=== PATIENT | male | born 1985 | race Caucasian/White ===

== ENCOUNTER → 2018-08-24 10:08 | Outpatient (CLI) | payer OTHER, SELFPAY ==
--- NOTE | 2018-08-24 10:24 | RAD_ITS ---
STUDY: X-RAY - LUMBAR SPINE REASON FOR EXAM: Male, 32 years old. Low back pain radiating to the left leg TECHNIQUE: 5 view(s) of the lumbar spine were obtained. COMPARISON: None FINDINGS: Normal lumbar lordosis. The patient is tilted towards the left. There is a normal alignment of the vertebrae. Normal vertebral bodies and endplates. There is trace amount of disc space loss at L4-L5 with mild facet arthropathy. There is no demonstrated fracture. There is no demonstrated spondylolysis of the pars interarticulares. The soft tissue structures are unremarkable. RAD/L/S Spine Min 4 Views IMPRESSION: Mild degenerative changes at L4-L5. Electronically Signed: Jitendra Campbell MD at 16:35 EDT , Service support ,
== END ==
PROVIDERS: Family Provider Family Medicine; PCP Family Medicine; Referring Provider Family Medicine; Visit Provider Family Medicine
DX: M54.5 Low back pain (principal)
CPT/HCPCS: 72110

== ENCOUNTER → 2018-10-31 16:37 | Outpatient (CLI) | payer OTHER, SELFPAY ==
[2018-10-31 17:46] LABS: Absolute Lymphocyte Count 1.27 X10^3/ul (0.83-4.51); Absolute Neutrophil Count 3.4 X10^3/uL (2.0-7.7); Basophil# 0.04 X10^3/uL; Basophil% 0.7 % (0-1); Eosinophil# 0.24 X10^3/uL; Hematocrit 44.7 % (40-54); Hemoglobin 15.4 g/dl (13.0-16.5); Lymphocyte # 1.27 X10^3/ul (4.0); Lymphocyte % 21.2 % (19-41); Mean Corp Hgb Conc 34.5 g/gl (32-36); Mean Corpuscular Volume 81.3 fL (80-94); Mean Platelet Vol. 9.3 fl (6.2-12.0); Monocyte# 1.02 X10^3/uL; Neutrophil # 3.41 X10^3/uL (2.7-7.7); Neutrophil % 56.9 % (47-70); Platelet Count 242 K/mm3 (150-450); RBC Distribution Width CV 12.5 % (11.6-14.6); RBC Distribution Width SD 37.2 fl (35.1-43.9)
[2018-10-31 17:57] LABS: POSITIVE COUNT NO; POSITIVE DIFFERENTIAL NO; POSITIVE MORPHOLOGY NO
[2018-10-31 18:06] LABS: ALB/GLOB Ratio 1.1 RATIO (0.9-2.4); AST(SGOT) 24 U/L (15-37); Alanine Aminotransfer ALT/SGPT 35 U/L (16-61); Albumin, Serum 4.2 g/dL (3.2-5.0); Alkaline Phosphatase 101 U/L (45-117); Anion Gap 8 (5-15); BUN 11 mg/dL (7-18); BUN/Creat Ratio 10.1 RATIO (10-20); Chloride 101 mmol/L (98-107); Creatinine, Serum 1.09 mg/dL (0.70-1.30); EST Glomerular Filtration Rate 82 mL/min (>60); Est Glom Filt Rate - Afr Amer 100 mL/min (>60); Globulin 3.7 g/dL (2.2-4.2); Glucose 89 mg/dL (74-106); Potassium 4.1 mmol/L (3.5-5.1); Protein, Total 7.9 g/dL (6.4-8.2); Sodium Level 135 mmol/L (136-145)
== END ==
PROVIDERS: Family Provider Family Medicine; PCP Family Medicine; Referring Provider Family Medicine; Visit Provider Family Medicine
DX: R10.9 Unspecified abdominal pain (principal)
CPT/HCPCS: 36415; 80053; 85025

== ENCOUNTER → 2020-03-20 12:11 | Outpatient (CLI) | payer OTHER, SELFPAY ==
[2020-03-20 15:37] LABS: Absolute Lymphocyte Count 3.01 X10^3/uL (0.83-4.51); Basophil# 0.06 X10^3/uL; Basophil% 0.9 % (0-1); Eosinophils% 2.9 % (0-5); Hematocrit 45.8 % (40-54); Hemoglobin 15.2 g/dL (13.0-16.5); Lymphocyte # 3.01 X10^3/ul (4.0); Lymphocyte % 44.1 % (19-41); Mean Corp Hgb Conc 33.2 g/dL (32-36); Mean Corpuscular Hgb 28.6 pg (27.0-32.0); Mean Corpuscular Volume 86.3 fL (80-94); Monocyte# 0.54 X10^3/uL; Monocyte% 7.9 % (0-10); NRBC Flagged by Analyzer 0 % (0-5); Neutrophil # 3.01 X10^3/uL (2.7-7.7); Neutrophil % 44.1 % (47-70); Platelet Count 413 K/mm3 (150-450); RBC Distribution Width CV 12.2 % (11.6-14.6); RBC Distribution Width SD 38.9 fl (35.1-43.9); Red Blood Count 5.31 M/mm3 (4.6-6.2); White Blood Count 6.8 K/mm3 (4.4-11.0)
[2020-03-20 15:55] LABS: ALB/GLOB Ratio 1.1 RATIO (0.9-2.4); AST(SGOT) 22 U/L (15-37); Alanine Aminotransfer ALT/SGPT 30 U/L (16-61); Albumin, Serum 4.4 g/dL (3.2-5.0); Alkaline Phosphatase 68 U/L (45-117); Anion Gap 8 (5-15); BUN 10 mg/dL (7-18); BUN/Creat Ratio 9.3 RATIO (10-20); Calcium,Total 9.3 mg/dL (8.5-10.1); Chloride 104 mmol/L (98-107); Creatinine, Serum 1.07 mg/dL (0.70-1.30); EST Glomerular Filtration Rate 83 mL/min (>60); Est Glom Filt Rate - Afr Amer 101 mL/min (>60); Glucose 88 mg/dL (74-106); Iron 102 ug/dL (65-175); Potassium 3.7 mmol/L (3.5-5.1); Protein, Total 8.4 g/dL (6.4-8.2); Sodium Level 138 mmol/L (136-145)
[2020-03-20 16:00] LABS: Vitamin B12 480 pg/mL (211-911); Vitamin D,25 Hydroxy 18.7 ng/mL
[2020-03-20 16:30] LABS: Erythrocyte Sedimentation Rate 11 mm/hr (0-15)
== END ==
PROVIDERS: PCP Family Medicine; Referring Provider Family Medicine; Visit Provider Family Medicine
DX: R53.83 Other fatigue (principal)
CPT/HCPCS: 36415; 80053; 82306; 82607; 83540; 84403; 85025; 85652

== ENCOUNTER → 2020-04-20 15:24 | Outpatient (CLI) | payer OTHER, SELFPAY ==
--- NOTE | 2020-04-20 15:36 | MRI_ITS ---
STUDY: MRI LUMBAR SPINE WITHOUT CONTRAST REASON FOR EXAM: Male, 34 years old. Low back pain and bilateral hip pain, left leg pain for 10 years TECHNIQUE: Standardized fat and water weighted pulse sequences were obtained in the sagittal and axial planes. COMPARISON: August 24 2018 FINDINGS: lumbar spine is intact and aligned. Marrow, paraspinous soft tissues and SI joints are unremarkable. There are minor degenerative changes in the inferior L4 endplate and subchondral marrow. Conus medullaris terminates at L1. Cauda equina is restricted at L4-L5. T12-L1 has patent canal and foramina. L1-L2 has patent canal and foramina. L2-L3 has patent canal and foramina. L3-L4 has patent canal and foramina. L4-L5 has a large left central disc extrusion with severe thecal sac stenosis and left lateral recess stenosis. There is mild left foraminal stenosis with patent right foramen. L5-S1 has patent canal, foramina and lateral recesses. MRI/Spine Lumbar (Routine) IMPRESSION: 1. L4-L5 left central large disc extrusion with severe thecal sac stenosis. Neurosurgical referral is advised. Electronically Signed: Alejandra Herndon, at 17:24 EST Tel , Service support ,
== END ==
PROVIDERS: PCP Family Medicine; Referring Provider Family Medicine; Visit Provider Family Medicine
DX: M54.40 Lumbago with sciatica, unspecified side (principal)
CPT/HCPCS: 72148

== ENCOUNTER → 2020-06-19 09:26 | Outpatient (CLI) | payer OTHER, SELFPAY ==
[2020-05-06 08:24] VITALS: BMI 26.4
[2020-06-19 12:21] LABS: Hematocrit 45.2 % (40-54); Hemoglobin 15.1 g/dL (13.0-16.5); Mean Corp Hgb Conc 33.4 g/dL (32-36); Mean Corpuscular Hgb 28.4 pg (27.0-32.0); Mean Corpuscular Volume 85.1 fL (80-94); Platelet Count 363 K/mm3 (150-450); RBC Distribution Width CV 11.8 % (11.6-14.6); RBC Distribution Width SD 36.3 fl (35.1-43.9); Red Blood Count 5.31 M/mm3 (4.6-6.2); White Blood Count 5.3 K/mm3 (4.4-11.0)
[2020-06-19 12:26] LABS: International Normalized Ratio 0.9; Prothrombin Time (Protime)PT. 11.8 SECONDS (11.7-14.9)
[2020-06-19 12:27] LABS: Partial Thromboplast Time 28.1 Seconds (24.1-36.2)
== END ==
PROVIDERS: PCP Family Medicine; Referring Provider Family Medicine; Visit Provider Family Medicine
DX: Z01.818 Encounter for other preprocedural examination (principal)
CPT/HCPCS: 36415; 85027; 85610; 85730

== ENCOUNTER 2020-06-30 05:30 | Inpatient (IN) | payer OTHER, SELFPAY ==
[2020-05-06 08:24] VITALS: BMI 26.4
--- NOTE | 2020-06-24 09:47 | EKG12_ITS ---
Test Reason : PRE SURGERY Blood Pressure : / mmHG Vent. Rate : 079 BPM Atrial Rate : 079 BPM P-R Int : 148 ms QRS Dur : 090 ms QT Int : 372 ms P-R-T Axes : 061 017 028 degrees QTc Int : 426 ms Normal sinus rhythm Normal ECG Confirmed by GUERRERO SALGADO, BARBARA ([id number]), supervising editor trailer TERRELL LAW ([id number]) on 06/25/2020 11:19:53 AM Referred By: Oscar Scott Confirmed By:BARBARA MASTERS MD
[2020-06-24 10:28] LABS: Absolute Lymphocyte Count 2.25 X10^3/uL (0.83-4.51); Absolute Neutrophil Count 2.6 X10^3/uL (2.0-7.7); Basophil# 0.06 X10^3/uL; Basophil% 1.1 % (0-1); Eosinophil# 0.15 X10^3/uL; Eosinophils% 2.7 % (0-5); Hematocrit 46.2 % (40-54); Lymphocyte # 2.25 X10^3/ul (4.0); Lymphocyte % 40.8 % (19-41); Mean Corp Hgb Conc 32.5 g/dL (32-36); Mean Corpuscular Hgb 27.5 pg (27.0-32.0); Mean Corpuscular Volume 84.8 fL (80-94); Mean Platelet Vol. 8.5 fl (6.2-12.0); Monocyte# 0.48 X10^3/uL; Monocyte% 8.7 % (0-10); NRBC Flagged by Analyzer 0 % (0-5); Neutrophil # 2.56 X10^3/uL (2.7-7.7); Neutrophil % 46.5 % (47-70); Platelet Count 379 K/mm3 (150-450); RBC Distribution Width CV 11.9 % (11.6-14.6); RBC Distribution Width SD 36.7 fl (35.1-43.9); Red Blood Count 5.45 M/mm3 (4.6-6.2); White Blood Count 5.5 K/mm3 (4.4-11.0)
[2020-06-24 11:09] LABS: Magnesium 2.2 mg/dL (1.6-2.6)
[2020-06-24 11:20] LABS: Anion Gap 4 (5-15); BUN 13 mg/dL (7-18); BUN/Creat Ratio 11.3 RATIO (10-20); Calcium,Total 9.3 mg/dL (8.5-10.1); Chloride 103 mmol/L (98-107); Creatinine, Serum 1.15 mg/dL (0.70-1.30); EST Glomerular Filtration Rate 77 mL/min (>60); Est Glom Filt Rate - Afr Amer 93 mL/min (>60); Glucose 92 mg/dL (74-106); Potassium 4.2 mmol/L (3.5-5.1); Sodium Level 137 mmol/L (136-145)
[2020-06-24 11:50] VITALS: BMI 26.3
[2020-06-24 11:50] LABS: HIV - WCH Non-Reactive (Nonreactive)
[2020-06-25 04:07] LABS: HEPATITIS B SURFACE AG Negative (Negative); Hepatitis A AB, Total Negative (Negative); Hepatitis A IgM Antibody Negative (Negative); Hepatitis B Core AB IgM Negative (Negative); Hepatitis B Core Ab Total Negative (Negative); Hepatitis C Ab 0.1 s/co ratio (0.0-0.9)
[2020-06-25 14:23] LABS: Hep B Surface Antibodies Non Reactive (.)
[2020-06-30] VITALS (12 sets, daily range): BP systolic 108–127; BP diastolic 56–75; PULSE 60–84; RESP 16–18; TEMP 36.1–37.1; O2SAT 97–100; BMI 26.9
--- NOTE | 2020-06-30 | DISC_PTH ---
PATIENT: SARY QUEEN LOC: MS3 U#:[id number] AGE/SX: 34/M ROOM: [facility] – [place] RE06/30/[address]: Dr. Nanci Ramos MD : 1985 BED: 1 DIS: 07/04/2020 SPEC #: [id number] RECD: 07/01/20 07:34 STATUS: ZOILA REQ #: [id number] TAINA: 06/30/20 00:[address]: Oscar Scott DEPT: SURGICAL PATHOLOGY RECD BY: Pedro Rico ENTERED: 07/01/20 11:15 SP TYPE: DISC OTHR DR: MD Dr. Fernando Ernst MD Dr. Kathryn Lee, DO Dr. Marcus Newton, DO Tissues: Intervertebral disc, NOS Procedures: Surgery Specimen Level III Comments: @ Ordering doctor for SUIII edited from to @ by BERNADETTE at 07/01/20 1249 @ Submitting doctor edited from to @ by TANMAYOD at 07/01/20 1249 HEADER OPERATION: ERAS, 360 fusion L4-L5 with laminectomy L4-L5 PRE-OP DIAGNOSIS: Cauda equine syndrome with neurogenic bladder TISSUE SUBMITTED: Lumbar disc MICROSCOPIC DIAGNOSIS Intervertebral disc, L4-L5, discectomy: Fragments of intervertebral disc with reparative change. AM:kellee 07/02/2020 MICROSCOPIC DESCRIPTION Slides are reviewed. GROSS DESCRIPTION Received in fixative is one container labeled with the patient's name and designated lumbar disc. The specimen consists of multiple irregular and indurated fragments of light to dark narayanan soft tissue that in aggregate measure 4 x 3 x 0.7 cm. Electronic Intelligence Officer sections are submitted in one cassette. / AM:kellee 07/01/20 TC:5 CPT: [id number]
[2020-06-30] MEDS: Acetaminophen 500 MG Tablet 1000 MG PO (06:29)
[2020-06-30] MEDS: Lactated Ringers 1,000 ML 100 ML IV (06:30)
--- NOTE | 2020-06-30 06:48 | HP_ITS ---
Intake Intake Visit Reasons: lumbar spine Allergies No Known Allergies Allergy (Unverified 06/16/20 10:08) [facility] Medical History (Updated 05/06/20 @ 08:28 by Radha Hendricks) H/O fracture of pelvis (Acute) h/o fracture elbow (Acute) Family History (Updated 05/06/20 @ 08:29 by Radha Hendricks) Father Hypertension Social History (Updated 06/24/20 @ 11:[address] Oscar Scott DO) household members: spouse, children housing: house current occupational status: employed Smoking Status: Never smoker alcohol intake: current alcohol intake frequency: other what type of physical activity do you participate in: none do you feel safe at home: Yes HPI lumbar spine: Details: Parts of this documentation were recorded by a scribe, this documentation accurately reflects the service provided and the decisions made by me, Dr. Oscar Scott DO 06/24/20 1139. SARY QUEEN is a 34 year old M here today for Sary is here for his preop. He is scheduled for surgery next Monday. Will be a 360 fusion with bilateral laminectomies at L4-5. He has a very large herniation at L4-5. He said just that he was sick for about 3-4 5days over a month ago. So he thinks he might of had COVID-19. He never took a test however. His who was with him today says she did not get sick at all. Irregardless we will have the now clinic do a test today to make sure that he is indeed negative. Even if he really did have that he probably would be fine right now. Nothing is changed although his pain he says perhaps is even worse than it was. He still has urinary retention he has to go 2 or 3 times a night to urinate. He states that it takes him 30 seconds to start his stream. I answered all her questions regarding the surgery. We spoke of possible risks and complications associated with the surgery including possibly of , paralysis infection meningitis failure to relieve symptoms blood clot in the legs blood clot in the lungs microinfarction stroke among others. I answered all the questions I will see him again at surgery on Monday. Assessment & Plan Problems 1. Cauda equina syndrome with neurogenic bladder G83.4 2. Herniated nucleus pulposus, L4-5 M51.26 Coding Level of Care Code Off vis,est,level 2 Diagnoses Cauda equina syndrome with neurogenic bladder G83.4 Herniated nucleus pulposus, L4-5 M51.26 Time Spent (min) 20
[2020-06-30 07:16] LABS: Bedside Glucose 130 mg/dL (70-110)
--- NOTE | 2020-06-30 07:30 | RAD_ITS ---
STUDY: X-RAY - LUMBAR SPINE REASON FOR EXAM: Male, 34 years old. 360 FUSION L4-5 W/ LAMINECTOMY BILATERAL IMAGE #1 TECHNIQUE: Single lateral view(s) of the lumbar spine were obtained. COMPARISON: None FINDINGS: The metallic marker is seen along the anterior aspect of the L4-L5 disc space level. RAD/Spine 1 View Any Level IMPRESSION: The localizer is seen along the anterior aspect of the L4-L5 disc space level. Electronically Signed: Minor Adkins MD at 9:56 EST , Service support ,
[2020-06-30] MEDS: Cefazolin 2 GM in 0.9% Normal Saline 100 ML IV (07:50)
[2020-06-30] MEDS: THROMBIN (RECOMBINANT) 20,000 UNIT VIAL 20000 UNIT TOPICAL (08:00)
[2020-06-30] MEDS: Heparin 10,000 UNITS/10 ML Vial 10000 UNITS ×2 (08:00)
--- NOTE | 2020-06-30 10:39 | RAD_ITS ---
STUDY: X-RAY - LUMBAR SPINE REASON FOR EXAM: Male, 34 years old. 360 FUSION L4-L5 WITH LAMINECTOMY TECHNIQUE: Single lateral intraoperative view(s) of the lumbar spine were obtained. COMPARISON: None FINDINGS: The patient is status post anterior fusion with plate and screw fixation at the L4-L5 level. Prosthetic disc has been placed. RAD/Spine 1 View Any Level IMPRESSION: Status post anterior fusion at the L4-L5 level with prosthetic disc. Electronically Signed: Minor Adkins MD at 11:16 EST , Service support ,
--- NOTE | 2020-06-30 10:52 | OP.PCM_ITS ---
Report of Operation Date of Procedure: 06/30/20 Description of Surgical Findings:: Preoperative diagnosis: Large herniated disc L4-5 with cauda equina syndrome Postoperative diagnoses: The same Procedures: #1 anterior lumbar interbody fusion #2 insertion of titanium bony ingrowth cage #3 internal fixation with anterior spine plate and locking titanium screws Cosurgeons: Dr. Scott and Dr. Ryan assistant professor of geography Michael CANTOR Anesthesia: General endotracheal anesthesia administered by [facility] Estimated blood loss: Less than 100 cc Drains: None Complications: None Patient was taken to the OR where he was placed in the supine position on the operating table he was then placed under general endotracheal anesthesia. Neuro monitoring needles were then placed by the marine propulsion technician. Moreira catheter was inserted. The abdomen was then prepped and draped in the usual fashion. The surgical approach is described in Dr. Ryan's operative summary. Note to Dr. Ryan was my co-surgeon. Throughout the procedure he was critical in the insertion of the screws the use of the awl etc. Once good access was obtained to the L4-5 space an intraoperative x-ray was taken with a needle marker in place. This confirmed our level as L4-5 I then marked by burning a hole in the anterior annulus and removing the needle. Used a long a 10 blade knife to cut the anterior annulus and used long pituitaries to remove the annulus and more nucleus from within the disc space. I felt that some of the disc actually was pulled back into the space through the use of the pituitary. I could tell by the way that it felt as it gave way coming back in. All the nucleus was out before removal of the endplate cartilage I found a hole where the extruded fragment had exited the space. I enlarged the hole with small curettes. Then able to probe the area with different types of nerve roots and removing some of the extruded fragments one quite large from the epidural space. Probably accomplished at least part of the decompression. Then removed all the cartilage off both endplates using curettes both ring curettes and bowl curettes. Used a bur to bur mostly the bottom of the L4 vertebra on the left side. The vertebra were not perfectly aligned. Hard with a 10 mm trial followed by 12 mm trial I then broached the space with both the 10 and then the 12 mm trial. It was broached and noted that I did not have too much trouble put in in a 14 mm trial 25 x 35 and 14 mm high with an 8 degree lordosis. Prior to this I put a small puncture incision over the ASIS on the left side and then tamped in the Jamshidi needle. I was able to obtain 60 cc of bone marrow aspirate. Was handed off to the marine propulsion technician who then spun it in a centrifuge specially for this purpose the stem cells from the plasma and red cells and concentrated the stem cells about 10 times. Was then given back to us. Bony sponges were then soaked in the patient's own stem cells. I then filled the 14 mm cage with these soaked bony sponges and then tamped them into place into the L4-5 space. These were countersunk approximately 2 to 3 mm. Elevated the anterior longitudinal ligament and periosteum above and below the space with it at this level I normally cheat to the left side to keep the plate away from the vascular structures. We used a 27 mm 4-hole plate. Once centered we we used an awl to puncture each of the 4 holes 1 at a time followed by insertion of 30 mm screw at each of the 4 corners. Was observed on a plain x-ray and the lateral view was found to be satisfactory with good position of the screws of the plate and the cage. I then placed a amnionic membrane directly on top of the plate to prevent adhesions to the vessels that is the vena cava and the aorta that would basically be touching the edge of the cage. The closure is then described in Dr. Ryan's operative summary.
--- NOTE | 2020-06-30 10:56 | RAD_ITS ---
STUDY: X-RAY - LUMBAR SPINE REASON FOR EXAM: Male, 34 years old. 360 FUSION L4-L5 WITH LAMINECTOMY TECHNIQUE: Single lateral view view(s) of the lumbar spine were obtained. COMPARISON: None FINDINGS: The patient is status post anterior fusion at the L4-L5 level with prosthetic disc placement. RAD/Spine 1 View Any Level IMPRESSION: Status post anterior fusion at the L4-L5 level with prosthetic disc placement. Electronically Signed: Minor Adkins MD at 12:45 EST , Service support ,
--- NOTE | 2020-06-30 11:29 | PCM.OPRPT ---
Problem List (1) DDD (degenerative disc disease) Status: Acute Report of Operation Date of Procedure: 06/30/20 Pre-Operative Diagnosis: Herniated disc L4-L5 with cauda equina syndrome Post-Operative Diagnosis: The same Surgery/Procedure Performed:: 1. Anterior lumbar interbody fusion L4-L5. Plate with 4 screws placed anterior. Type of Anesthesia:: General Description of Procedure: Surgeon: Dr. Scott co-surgeon: Dr. Christopher Ryan,, who assisted with the entirety of the case and was necessary to perform for the anterior component of the case. Procedure: ALIF L4-L5 with plate and 4 screws placed Operation: Patient brought to the operating room. Underwent general anesthesia. Given the appropriate antibiotics. Appropriate monitoring lines were placed. Prepped and draped in a sterile fashion. We did a curvilinear incision left lower quadrant. Dissected down onto the anterior fascia and opened through this. We then freed up the fascia superior and inferior. We divided out into the obliques slightly as well past the rectus. We then lateral to the rectus got into the retroperitoneal plane and brought in the Omni retractor. Using blunt dissection we freed up the disc space of L4-L5. Some venous branches were ligated between clips. We able to get retraction of the vein medially and inferiorly. We then took an x-ray confirming that we are on the L4-L5 disc space. Patient underwent discectomy with an extensive component of this and freeing some into the epidural space posterior. This was then dilated up and eventually 14 mm cage was selected. This was then placed in good position. Plate was placed on top of this with 2 screws into L4 and 2 screws into L5. Completion x-ray showed good position of this. There was good hemostasis noted throughout. We put a little film over the cage below the vessels. We then closed the anterior fascia with a running strata fix. We then closed Lester's with 2-0 Vicryl. Then subcu subdermal interrupted 3-0 Vicryl for Monocryl Dermabond was placed. Patient was then flipped over and the posterior part will be all done separately.
--- NOTE | 2020-06-30 12:39 | RAD_ITS ---
STUDY: X-RAY - LUMBAR SPINE REASON FOR EXAM: Male, 34 years old. 360 FUSION L4-5 WITH LAMINECTOMY TECHNIQUE: 1 view(s) of the lumbar spine were obtained. COMPARISON: None FINDINGS: The patient is status post 360 degree fusion at the L4-L5 level with posterior laminectomy. RAD/Spine 1 View Any Level IMPRESSION: Status post 360 degree fusion at the L4-L5 level with posterior laminectomy Electronically Signed: Minor Adkins MD at 14:23 EST , Service support ,
--- NOTE | 2020-06-30 14:23 | OP.PCM_ITS ---
Report of Operation Date of Procedure: 06/30/20 Description of Surgical Findings:: Preoperative diagnosis: Herniated disc with cauda equina syndrome L4-5 with severe left L5 radiculopathy Postoperative diagnoses: The same Procedure: Left-sided lumbar laminectomy discectomy L4-5 with posterior fusion and internal segmental fixation Surgeon: Dr. Scott library assistant: Michael CANTOR Anesthesia: General endotracheal anesthesia administered by [facility] Estimated blood loss: Less than 50 cc Drains: Medium Hemovac Complications: None After the anterior procedure was done and the patient abdomen repaired the patient was then placed in the prone position on the Maximino frame. Appropriate care was taken to protect his bony prominences as genitalia the ulnar nerves of both elbows the brachial plexus the facial features and cervical spine. The back prepped and draped in the standard fashion. A longitudinal incision centered over L4 5 subcutaneous tissues were incised length of the skin incision. The open the lumbar fascia to the left of the spinous processes elevated the paravertebral muscles off the lamina 5 and the lamina of L4. An intraoperative x-ray was taken with a marker in place to make sure that we were at the proper level which we were. And elevated paravertebral completely off the lamina out over the top of the facet of L4 and so at L5. Jadyn retractor was then put in place release ligamentum flavum off the underside of the lamina of L4 was also thinned down with double-action rongeurs. Once ligamentum flavum was released I used 45 degree Kerrison rongeurs to perform the laminectomy. To perform medial facetectomy with an osteotome. Removed the very medial portion of the superior facet of L5. Remove the ligamentum flavum in retrograde fashion by first splitting it in the middle sharp dissection over a hockey stick then used curettes to cut it and release it off the top of the lamina of L5 patient was able to take most of the ligamentum flavum out 1 piece. Removed all remaining ligamentum flavum and open the lateral recess with a 45 degree Kerrison rongeurs. I then retracted the L5 nerve root and the dura medialward exposing the disc note that the disc was flaccid the inferior extruded fragment had essentially all been removed from the front. However we had to do the laminectomy to make sure that that was indeed the case and that the nerve was decompressed and that the cauda equina was decompressed. Able to observe the back end of the cage of course through the disc space. We thoroughly irrigated in the course of the case every 10 to 15 minutes with sterile saline to prevent infection. Once we had good the epidural hemostasis I placed a membrane patch over the dura to prevent lesions to the hernandez of the laminectomy. L foam was placed over the top of that I then prepared my lamina by using a bur to bur we then used the spongy bone to bridge the lamina. Addition the age graft was put in place. Following this the segmental fixation device was attached it was centered and locked into place at all 4 points. The locking mechanisms were then activated. A medium Hemovac drain was then left in place we closed the lumbar fascia using [id number] suture with #1 Vicryl followed by closure of subcutaneous tissues with 2-0 Vicryl in interrupted fashion and skin was approximated using skin clips. Sterile dressings were then applied. He was then recovered in the OR he is moved to his hospital bed and taken to recovery in satisfactory condition. Is the end of operative summary on Yaya Varela.
[2020-06-30 15:31] LABS: Bedside Glucose 140 mg/dL (70-110)
[2020-06-30] MEDS: Morphine 4 MG/ML Syringe IV ×2 (16:51→23:03)
[2020-06-30] MEDS: Cefazolin 1 GM/50 ML BAG IV ×2 (16:56→23:04)
[2020-06-30] MEDS: diazePAM 5 MG Tablet PO (18:09)
[2020-06-30] MEDS: traMADol 50 MG Tablet PO (18:27)
--- NOTE | 2020-06-30 18:58 | PCM.PN.HOSP ---
Patient Problems: Active and Suspected Problems (Last Reviewed 06/24/20 @ 11:52 by Rashida Riley) DDD (degenerative disc disease) (Acute) Subjective: Patient is a 33-year-old white male who was admitted electively for three sixty fusion and bilateral laminectomies at L4-L5. He had a very large herniation L4-L5 that has been bothering him for some time now. He was having urinary retention and was going to the bathroom approximately 2-3 times per night to urinate and it was taking him approximately 30 seconds to start his stream. Since he was having some cauda equina syndrome symptoms with neurogenic bladder he was taken the operating room on June 30, 2020. He has now been back to his room for approximately 2 hours now and states that he is having significant back pain but is just overall fatigued. He states the medication seems to be helping him some. He denies any other complaints and is asking for some Jell-O. He has a Moreira in place at this time. Vitals/I&O's: Vital Signs Temp Pulse Resp BP Pulse Ox 98.0 F 60 18 117/64 99 06/30/20 18:17 06/30/20 18:17 06/30/20 18:17 06/30/20 18:17 06/30/20 18:17 Oxygen Flow Rate (L/min) 2 Oxygen Delivery Method Room Air Weight: 87.8 kg Body Mass Index (BMI) 26.9 Intake and Output for Last 24 Hours 06/28/20 06/29/20 06/30/20 23:59 23:59 23:59 Intake Total 265 / 265 Output Total 735 / 735 Balance -470 / -470 General: Alert, Oriented x3, Cooperative, No apparent distress, Well developed, Well nourished, - - Young middle-aged white male lying in bed flat, watching a television, room is dark Oral: Moist Mucosa Neck: Supple, Trachea Midline Lungs: Clear to auscultation, Normal air movement, No rhonchi, No wheeze, No rales Cardiovascular: Regular rate, Regular Rhythm, Normal S1, Normal S2, No murmurs, No Ectopic Activity, No rub noted, No Gallop Abdomen: Bowel Sounds Present, Soft, Non Tender, Non-Distended Extremities: No clubbing, No cyanosis, No edema, Capillary Refill Less than 3 Seconds, Peripheral Pulses Normal Neurological: Cranial nerves II-XII grossly intact Psych/Mental Status: Appropriate, Flat Affect Laboratory Results 06/30/20 06:12: POC Glucose 130 H 06/30/20 15:25: POC Glucose 140 H Current Medications Diazepam (Diazepam 5 Mg Tablet) 5 mg PO Q6H PRN PRN PRN Reason: Muscle Spasms Last Admin: 06/30/20 18:09 Dose: 5 mg Documented by: Enteral Nutritional Formula (Ensure Surgery 237 Ml Liquid) 237 ml PO TIDCM [facility] Last Admin: 06/30/20 17:22 Dose: Not Given Documented by: Famotidine (Famotidine 20 Mg Tablet) 20 mg PO BID [facility] Last Admin: 06/30/20 16:58 Dose: Not Given Documented by: Lactated Ringer's () 1,000 mls @ 100 mls/hr IV .Q10H [facility] Last Admin: 06/30/20 18:15 Dose: Not Given Documented by: Cefazolin Sodium () 1 gm in 50 mls @ 100 mls/hr IV Q8H [facility] Stop: 07/01/20 00:19 Last Infusion: 06/30/20 17:30 Dose: Infused Documented by: Morphine Sulfate (Morphine 4 Mg/Ml Syringe) 2 - 4 mg IV Q2H PRN PRN PRN Reason: Pain Score 6-10 Last Admin: 06/30/20 16:51 Dose: 4 mg Documented by: Morphine Sulfate (Morphine 2 Mg/Ml Syringe) 2 - 4 mg IV Q2H PRN PRN PRN Reason: Pain Score 6-10 Ondansetron HCl (Ondansetron 4 Mg/2 Ml Vial) 4 mg IV Q8H PRN PRN PRN Reason: NAUSEA Senna/Docusate Sodium (Senna/Docusate Sodium 1 Tablet) 2 tablet PO BID [facility] Last Admin: 06/30/20 16:58 Dose: Not Given Documented by: Sodium Chloride (0.9% Saline Lock 10 Ml Syringe) 10 - 40 ml IV UD PRN PRN Reason: SALINE FLUSH Tramadol HCl (Tramadol 50 Mg Tablet) 50 - 100 mg PO Q6H PRN PRN PRN Reason: Pain Score 4-5 Last Admin: 06/30/20 18:27 Dose: 100 mg Documented by: Zolpidem Tartrate (Zolpidem Tartrate 5 Mg Tablet) 5 mg PO QHS PRN PRN PRN Reason: INSOMNIA STROKE Vital Signs/Narrative: Vital Signs Temp Pulse Resp BP Pulse Ox 06/30/20 18:17 98.0 F 60 18 117/64 99 06/30/20 17:09 98 06/30/20 17:02 70 06/30/20 16:38 98.0 F 71 18 111/56 L 100 06/30/20 15:47 97.0 F L 70 16 109/68 100 06/30/20 15:45 75 16 117/62 100 06/30/20 15:33 77 16 114/72 100 06/30/20 15:18 82 16 118/75 100 06/30/20 15:00 78 16 121/74 H 100 Medical Necessity - Tobacco Use Smoking Status: Never smoker Tobacco Use: Non-smoker Assessment/Plan All Active Problems (Last Reviewed 06/24/20 @ 11:52 by Rashida Riley) DDD (degenerative disc disease) (Acute) HNP at L4-L5 with resultant cauda equina syndrome status post L4-L5 laminectomy/360 fusion -Postoperative management per primary service -Continue pain medicines per primary service -Scheduled bowel regimen continue -Encouraged incentive spirometer -Maintain Moreira catheter at this time -We will add Flomax to use for a short course to aid Moreira removal -Continue home amitriptyline nightly for pain -CBC and BMP in a.m. Urinary retention -Suspected related to above -Maintain Moreira for now -Start Flomax to aid Moreira removal Depression Continue fluoxetine 40 mg daily DVT prophylaxis -Per primary CODE STATUS -Full Inpatient E&M: 81041 Subs Hosp L2
[2020-06-30] MEDS: Famotidine 20 MG Tablet PO (20:01)
[2020-06-30] MEDS: Senna/Docusate Sodium 1 Tablet 2 TABLET PO (20:01)
[2020-07-01] VITALS (8 sets, daily range): BP systolic 110–126; BP diastolic 57–72; PULSE 74–93; RESP 16–18; TEMP 36.3–37.2; O2SAT 96–100
[2020-07-01] MEDS: traMADol 50 MG Tablet PO (01:42)
[2020-07-01] MEDS: diazePAM 5 MG Tablet PO ×2 (01:42→16:25)
[2020-07-01] MEDS: Morphine 4 MG/ML Syringe IV (03:45)
[2020-07-01] MEDS: Ketorolac 15 MG/ML Vial IV (04:59)
[2020-07-01 06:11] LABS: Absolute Lymphocyte Count 1.35 X10^3/uL (0.83-4.51); Basophil# 0.02 X10^3/uL; Basophil% 0.3 % (0-1); Eosinophil# 0.07 X10^3/uL; Hematocrit 35.7 % (40-54); Hemoglobin 11.8 g/dL (13.0-16.5); Lymphocyte # 1.35 X10^3/ul (4.0); Lymphocyte % 18.6 % (19-41); Mean Corp Hgb Conc 33.1 g/dL (32-36); Mean Corpuscular Volume 84.8 fL (80-94); Mean Platelet Vol. 8.7 fl (6.2-12.0); Monocyte# 0.75 X10^3/uL; Monocyte% 10.3 % (0-10); NRBC Flagged by Analyzer 0 % (0-5); Neutrophil # 5.04 X10^3/uL (2.7-7.7); Neutrophil % 69.4 % (47-70); Platelet Count 277 K/mm3 (150-450); RBC Distribution Width CV 11.9 % (11.6-14.6); RBC Distribution Width SD 36.3 fl (35.1-43.9); Red Blood Count 4.21 M/mm3 (4.6-6.2); White Blood Count 7.3 K/mm3 (4.4-11.0)
[2020-07-01 06:36] LABS: Anion Gap 5 (5-15); BUN 10 mg/dL (7-18); Calcium,Total 8.2 mg/dL (8.5-10.1); Chloride 103 mmol/L (98-107); EST Glomerular Filtration Rate 90 mL/min (>60); Est Glom Filt Rate - Afr Amer 109 mL/min (>60); Estimated Creatinine Clearance 109.81 ml/min; Glucose 134 mg/dL (74-106); Potassium 3.5 mmol/L (3.5-5.1); Sodium Level 135 mmol/L (136-145)
--- NOTE | 2020-07-01 07:31 | PCM.PN.HOSP ---
Patient Problems: Active and Suspected Problems (Last Reviewed 06/24/20 @ 11:52 by Rashida Riley) DDD (degenerative disc disease) (Acute) Reason for Visit: Follow-up on postop management/herniated disks with cauda equina syndrome, L4-5 with severe left radiculopathy Subjective: Patient was seen and examined. His pain was fairly controlled. No other events overnight Objective: Physical exam: General: Alert, Oriented x3, Cooperative, No apparent distress, Well developed, Well nourished Oral: Moist Mucosa Neck: Supple, Trachea Midline Lungs: Clear to auscultation, Normal air movement, No rhonchi, No wheeze, No rales Cardiovascular: Regular rate, Regular Rhythm, Normal S1, Normal S2, No murmurs, No Ectopic Activity, No rub noted, No Gallop Abdomen: Bowel Sounds Present, Soft, Non Tender, Non-Distended Extremities: No clubbing, No cyanosis, No edema, Capillary Refill Less than 3 Seconds, Peripheral Pulses Normal Neurological: Cranial nerves II-XII grossly intact Psych/Mental Status: Appropriate, Flat Affect Vitals/I&O's: Vital Signs Temp Pulse Resp BP Pulse Ox 99 F 90 18 113/57 L 97 07/01/20 04:06 07/01/20 04:06 07/01/20 04:06 07/01/20 04:06 07/01/20 06:40 Oxygen Flow Rate (L/min) 2 Oxygen Delivery Method Room Air Weight: 87.8 kg Body Mass Index (BMI) 26.9 Intake and Output for Last 24 Hours 06/29/20 06/30/20 07/01/20 23:59 23:59 23:59 Intake Total 1875 / 1875 800 / 800 Output Total 1165 / 1165 780 / 780 Balance 710 / 710 Laboratory Results 06/30/20 15:25: POC Glucose 140 H 07/01/20 05:56: WBC 7.3, RBC 4.21 L, Hgb 11.8 L, Hct 35.7 L, MCV 84.8, MCH 28.0, MCHC 33.1, RDW Std Deviation 36.3, RDW Coeff of Lorne 11.9, Plt Count 277, MPV 8.7, Immature Gran % (Auto) 0.400, Neut % (Auto) 69.4, Lymph % (Auto) 18.6 L, Wheeler % (Auto) 10.3 H, Eos % (Auto) 1.0, Baso % (Auto) 0.3, Absolute Neuts (auto) 5.0, Absolute Lymphs (auto) 1.35, Nucleated RBC % 0 07/01/20 05:56: Sodium 135 L, Potassium 3.5, Chloride 103, Carbon Dioxide 27.0, Anion Gap 5, BUN 10, Creatinine 1.00, Estim Creat Clear Calc 109.81, Est GFR (MDRD) Af Amer 109, Est GFR (MDRD) Non-Af 90, BUN/Creatinine Ratio 10.0, Glucose 134 H, Calcium 8.2 L Current Medications Diazepam (Diazepam 5 Mg Tablet) 5 mg PO Q6H PRN PRN PRN Reason: Muscle Spasms Last Admin: 07/01/20 01:42 Dose: 5 mg Documented by: Enteral Nutritional Formula (Ensure Surgery 237 Ml Liquid) 237 ml PO TIDCM [facility] Last Admin: 06/30/20 17:22 Dose: Not Given Documented by: Famotidine (Famotidine 20 Mg Tablet) 20 mg PO BID [facility] Last Admin: 06/30/20 20:01 Dose: 20 mg Documented by: Morphine Sulfate (Morphine 4 Mg/Ml Syringe) 2 - 4 mg IV Q2H PRN PRN PRN Reason: Pain Score 6-10 Last Admin: 07/01/20 03:45 Dose: 4 mg Documented by: Morphine Sulfate (Morphine 2 Mg/Ml Syringe) 2 - 4 mg IV Q2H PRN PRN PRN Reason: Pain Score 6-10 Ondansetron HCl (Ondansetron 4 Mg/2 Ml Vial) 4 mg IV Q8H PRN PRN PRN Reason: NAUSEA Senna/Docusate Sodium (Senna/Docusate Sodium 1 Tablet) 2 tablet PO BID [facility] Last Admin: 06/30/20 20:01 Dose: 2 tablet Documented by: Sodium Chloride (0.9% Saline Lock 10 Ml Syringe) 10 - 40 ml IV UD PRN PRN Reason: SALINE FLUSH Tamsulosin HCl (Tamsulosin Hcl 0.4 Mg Capsule) 0.4 mg PO DAILY@1730 [facility] Tramadol HCl (Tramadol 50 Mg Tablet) 50 - 100 mg PO Q6H PRN PRN PRN Reason: Pain Score 4-5 Last Admin: 07/01/20 01:42 Dose: 100 mg Documented by: Zolpidem Tartrate (Zolpidem Tartrate 5 Mg Tablet) 5 mg PO QHS PRN PRN PRN Reason: INSOMNIA STROKE Vital Signs/Narrative: Vital Signs Temp Pulse Resp BP Pulse Ox 07/01/20 06:40 97 07/01/20 04:06 99 F 90 18 113/57 L 97 Medical Necessity - Tobacco Use Smoking Status: Never smoker Tobacco Use: Non-smoker Assessment/Plan All Active Problems (Last Reviewed 06/24/20 @ 11:52 by Rashida Riley) DDD (degenerative disc disease) (Acute) 1. Postop day #1 status post L4-L5 laminectomy/360 degree fusion Pain is fairly controlled, continue on current pain regiment with Vicodin, morphine as needed 2. Urine retention, resolved, continue on Flomax 3. Depression, continue on bupropion, amitriptyline 4. DVT prophylaxis per primary team Inpatient E&M: 48802 Subs Hosp L2
[2020-07-01] MEDS: Ensure Surgery 237 ML LIQUID PO ×3 (08:42→16:25)
[2020-07-01] MEDS: Famotidine 20 MG Tablet PO ×2 (09:20→21:20)
[2020-07-01] MEDS: Senna/Docusate Sodium 1 Tablet 2 TABLET PO ×2 (09:20→21:20)
[2020-07-01] MEDS: HYDROcodone Bitartrate/Apap 5/325 Tablet PO ×3 (09:29→21:18)
--- NOTE | 2020-07-01 11:02 | MDS.RN ---
RN CM Assessment Introduced role of RN CM to patient.? Patient is alert, oriented and able?to participate in RN CM Assessment. ?Care providers, pharmacy, and demographics verified. Admit Dx: 360 Fusion L4-L5, Laminectomy L4-L5 Re-Admit: No Barriers/Issues: None. Patient states that his can assist him with home needs while healing if needed. States that she did that in the past when he broke his Pelvis x2yrs ago. PCP: Fernando Carranza Specialists: None Preferred Pharmacy: [facility] [place] Insurance: [facility] Rx Benefit:?Yes LNOK: Varsha Varela LW/HPOA: Completed a LW approx 10 years ago and believes he put as HPOA on LW. Aware not on file at [facility]. Aware if would like to complete HPOA or update LW can return as an outpatient to complete with care services manager dept. Living Arrangements:? Lives with and 4 children in a 2SH, bedroom on 2nd fl. States that he can stay/sleep on couch on 1st fl. 2 small steps to enter home. ADL?s: Independent with ambulation and ADLs Transportation: Both patient and drive. to transport patient upon DC. DME: None. States that he believes he has a WW and cane from when he broke his pelvis x2yrs ago. HHC: None SNF: Past at [facility] in [place] x2yrs ago Goal: Home and does not think will have any needs. States that he has been up once with PT walking the halls with WW. Denies any issues, questions, or concerns with DC planning at this time. Aware RNCM will remain available for any emerging needs that may arise. DC PLAN: Home with possible WW if patient cannot locate his and if recommended by PT. Possible Outpatient PT- RNCM to follow up on patient mobility. PT eval not entered at this time. DENISE Ortiz
--- NOTE | 2020-07-01 12:20 | PCM.PN.BLA ---
Progress Note Postop day #1: Patient reports complete relief of his left leg pain. A little while ago after removal of his Moreira he was able to urinate it took him 15 seconds or so to do so ever before surgery was taken 30 seconds or so to start his stream because of his cauda equina syndrome. Resting is dry he had about 25 cc out of his Hemovac we will keep her 1 more day and remove it tomorrow. Logically he is intact in both lower extremities. Dressings are both dry alert and well oriented. Progress is satisfactory. STROKE Vital Signs/Narrative: Vital Signs Temp Pulse Resp BP Pulse Ox 07/01/20 10:00 97.7 F L 87 16 126/70 H 100 07/01/20 08:38 97.3 F L 82 18 110/67 98 07/01/20 08:35 98.9 F 85 18 118/70 96
[2020-07-01] MEDS: Tamsulosin HCl 0.4 MG Capsule PO (16:22)
[2020-07-01] MEDS: Morphine 2 MG/ML Syringe IV (17:35)
[2020-07-01] MEDS: 0.9% Saline Lock 10 ML Syringe IV ×2 (17:36→18:48)
[2020-07-01] MEDS: HYDROmorphone 1 MG/ML Syringe IV ×2 (18:48→22:48)
[2020-07-01] MEDS: Polyethylene Glycol 3350 17 GM PACKET PO (21:19)
[2020-07-01] MEDS: Amitriptyline 25 MG Tablet PO (21:20)
[2020-07-02] MEDS: HYDROmorphone 1 MG/ML Syringe IV ×4 (03:04→18:49)
[2020-07-02 03:06] VITALS: BP 109/59; PULSE 70; RESP 16; TEMP 37.1; O2SAT 94
[2020-07-02 07:55] VITALS: O2SAT 87; O2SAT 94
[2020-07-02 08:21] VITALS: BP 124/72; PULSE 88; RESP 18; TEMP 36.6; O2SAT 99
[2020-07-02] MEDS: diazePAM 5 MG Tablet PO ×2 (08:29→18:49)
[2020-07-02] MEDS: HYDROcodone Bitartrate/Apap 5/325 Tablet PO ×2 (08:29→15:57)
[2020-07-02] MEDS: Ensure Surgery 237 ML LIQUID PO ×2 (08:38→12:22)
[2020-07-02] MEDS: Senna/Docusate Sodium 1 Tablet 2 TABLET PO ×2 (08:38→22:07)
[2020-07-02] MEDS: Famotidine 20 MG Tablet PO (08:39)
[2020-07-02] MEDS: FLUoxetine 20 MG Capsule 40 MG PO (08:39)
[2020-07-02] MEDS: buPROPion (XL) 150 MG TABLET.XL PO (08:40)
[2020-07-02] MEDS: Polyethylene Glycol 3350 17 GM PACKET PO ×2 (08:43→22:07)
[2020-07-02] MEDS: Gabapentin 300 MG Capsule PO ×3 (08:43→17:31)
--- NOTE | 2020-07-02 10:01 | PN_ITS ---
Patient Problems: Active and Suspected Problems (Last Reviewed 06/24/20 @ 11:52 by Rashida Riley) DDD (degenerative disc disease) (Acute) Subjective: Patient states he is feeling pretty well as long as he lies on his right side but states his pain increases with rolling. Reports that Toradol helps more than narcotics. Is having a little bit of tingling. States he still having trouble initiating his stream but able to urinate without difficulty or he gets his stream started. Vitals/I&O's: Vital Signs Temp Pulse Resp BP Pulse Ox 97.9 F 88 18 124/72 H 99 07/02/20 08:21 07/02/20 08:21 07/02/20 08:21 07/02/20 08:21 07/02/20 08:21 Oxygen Flow Rate (L/min) 2 Oxygen Delivery Method Nasal Cannula Weight: 87.8 kg Body Mass Index (BMI) 26.9 Intake and Output for Last 24 Hours 06/30/20 07/01/20 07/02/20 23:59 23:59 23:59 Intake Total 1875 / 1875 1650 / 1650 1100 / 1100 Output Total 1165 / 1165 1450 / 1450 505 / 505 Balance 710 / 710 200 / 200 595 / 595 General: Alert, Oriented x3, Cooperative, No apparent distress, Well developed, Well nourished, - - Young white male lying on his right side sleeping but awakens easily, nontoxic HEENT: Atraumatic, PERRLA, EOMI, Normocephalic, EAC Clear Oral: Moist Mucosa, No Gingival or Mucosal Lesions/ Ulcerations Neck: Supple, Trachea Midline Lungs: Clear to auscultation, Normal air movement, No rhonchi, No wheeze, No rales Cardiovascular: Regular rate, Regular Rhythm, Normal S1, Normal S2, No murmurs, No Ectopic Activity, No rub noted, No Gallop Abdomen: Bowel Sounds Present, Soft, Non Tender, Non-Distended Extremities: No clubbing, No cyanosis, No edema, Capillary Refill Less than 3 Seconds, Diminished Peripheral Pulses Psych/Mental Status: Appropriate, Flat Affect Current Medications Hydrocodone Bitart/Acetaminophen (Hydrocodone Bitartrate/Apap 5/325 Tablet) 2 tablet PO Q6H PRN PRN PRN Reason: Pain Score 6-10 Last Admin: 07/02/20 08:29 Dose: 2 tablet Documented by: Amitriptyline HCl (Amitriptyline 25 Mg Tablet) 25 mg PO QHS [facility] Last Admin: 07/01/20 21:20 Dose: 25 mg Documented by: Bupropion HCl (Bupropion (Xl) 150 Mg Tablet.Xl) 150 mg PO DAILY [facility] Last Admin: 07/02/20 08:40 Dose: 150 mg Documented by: Diazepam (Diazepam 5 Mg Tablet) 5 mg PO Q6H PRN PRN PRN Reason: Muscle Spasms Last Admin: 07/02/20 08:29 Dose: 5 mg Documented by: Enteral Nutritional Formula (Ensure Surgery 237 Ml Liquid) 237 ml PO TIDCM [facility] Last Admin: 07/02/20 08:38 Dose: 237 ml Documented by: Ergocalciferol (Ergocalciferol 50,000 Unit Capsule) 50,000 unit PO Mo@1000 [facility] Famotidine (Famotidine 20 Mg Tablet) 20 mg PO BID [facility] Last Admin: 07/02/20 08:39 Dose: 20 mg Documented by: Fluoxetine HCl (Fluoxetine 20 Mg Capsule) 40 mg PO DAILY [facility] Last Admin: 07/02/20 08:39 Dose: 40 mg Documented by: Gabapentin (Gabapentin 300 Mg Capsule) 300 mg PO TIDCM [facility] Last Admin: 07/02/20 08:43 Dose: 300 mg Documented by: Hydromorphone HCl (Hydromorphone 1 Mg/Ml Syringe) 1 mg IV Q4H PRN PRN PRN Reason: PAIN 1-10 Last Admin: 07/02/20 07:04 Dose: 1 mg Documented by: Ondansetron HCl (Ondansetron 4 Mg/2 Ml Vial) 4 mg IV Q8H PRN PRN PRN Reason: NAUSEA Polyethylene Glycol (Polyethylene Glycol 3350 17 Gm Packet) 17 gm PO BID [facility] Last Admin: 07/02/20 08:43 Dose: 17 gm Documented by: Senna/Docusate Sodium (Senna/Docusate Sodium 1 Tablet) 2 tablet PO BID [facility] Last Admin: 07/02/20 08:38 Dose: 2 tablet Documented by: Sodium Chloride (0.9% Saline Lock 10 Ml Syringe) 10 - 40 ml IV UD PRN PRN Reason: SALINE FLUSH Last Admin: 07/01/20 18:48 Dose: 10 ml Documented by: Tamsulosin HCl (Tamsulosin Hcl 0.4 Mg Capsule) 0.4 mg PO DAILY@1730 [facility] Last Admin: 07/01/20 16:22 Dose: 0.4 mg Documented by: Tramadol HCl (Tramadol 50 Mg Tablet) 50 - 100 mg PO Q6H PRN PRN PRN Reason: Pain Score 4-5 Last Admin: 07/01/20 01:42 Dose: 100 mg Documented by: Zolpidem Tartrate (Zolpidem Tartrate 5 Mg Tablet) 5 mg PO QHS PRN PRN PRN Reason: INSOMNIA STROKE Vital Signs/Narrative: Vital Signs Temp Pulse Resp BP Pulse Ox 07/02/20 08:21 97.9 F 88 18 124/72 H 99 07/02/20 07:55 94 Medical Necessity - Tobacco Use Smoking Status: Never smoker Tobacco Use: Non-smoker Assessment/Plan All Active Problems (Last Reviewed 06/24/20 @ 11:52 by Rashida Riley) DDD (degenerative disc disease) (Acute) HNP at L4-L5 with resultant cauda equina syndrome status post L4-L5 laminectomy/360 fusion -Patient with considerable pain still -Per surgical notes plan is to probably remove drain today -Continue amitriptyline -Continue Valium -Continue oxycodone -Continue as needed hydromorphone -Continue Zofran -Continue scheduled bowel regimen -Add gabapentin 300 mg 3 times daily -Continue home amitriptyline nightly for pain -Continue physical therapy -Possible discharge home tomorrow Urinary retention -Suspected related to above -Moreira is out and patient has slight difficulty with stream initiation but is able to void -Continue Flomax Mild acute anemia -Suspect related to postoperative change in hemoglobin -CBC in a.m. Depression Continue fluoxetine 40 mg daily DVT prophylaxis -Per primary CODE STATUS -Full Inpatient E&M: 10786 Subs Hosp L2
[2020-07-02] MEDS: 0.9% Saline Lock 10 ML Syringe IV ×4 (12:21→22:07)
[2020-07-02 12:27] VITALS: BP 122/72; PULSE 94; RESP 18; TEMP 36.6; O2SAT 97
--- NOTE | 2020-07-02 13:52 | PCM.PN.BLA ---
Progress Note Postop day #2. His main complaint is just that of low back pain. He also has some abdominal pain of course but he does state that his low back pain today is better than it was yesterday. Went ahead and change the dressing today and removed his drain. The incision is healing well. Logically he is intact. He has some flatulence now and he has some bowel sounds. However it is still too early to feed him anything but clear liquids. He on his bowel sounds tomorrow we will consider starting a soft diet at that time. Possible that he could go home tomorrow but realistically will probably be Monday. Rest is quite satisfactory. STROKE Vital Signs/Narrative: Vital Signs Temp Pulse Resp BP Pulse Ox 07/02/20 12:27 97.9 F 94 18 122/72 H 97
[2020-07-02] MEDS: Tamsulosin HCl 0.4 MG Capsule PO (17:32)
[2020-07-02] MEDS: Ondansetron 4 MG/2 ML Vial IV (18:49)
[2020-07-02 18:50] VITALS: BP 119/75; PULSE 99; RESP 18; TEMP 36.6; O2SAT 98
--- NOTE | 2020-07-02 18:51 | CT_ITS ---
STUDY: CT ABDOMEN AND PELVIS WITHOUT CONTRAST REASON FOR EXAM: Male, 34 years old. ABD DISTENTION. S/P 360 LUMBAR LAMINECTOMY 06/30/20 RADIATION DOSAGE (If Supplied By Facility): CTDIvol = ( 8.71 ) mGy, DLP = ( 520.01 ) mGycm TECHNIQUE: Transaxial images were obtained from the dome of the diaphragm to the symphysis pubis without oral contrast, and without intravenous contrast. Sagittal and coronal images were reconstructed. Individualized dose optimization techniques were used for this CT. COMPARISON: None. FINDINGS: There are small bilateral pleural effusions associated with consolidation within the lower lobes, more pronounced on the right. The visualized portions of the heart are within normal limits. The lack of intravenous contrast limits evaluation of solid visceral organs. Normal liver. Normal gallbladder and extrahepatic biliary system. Normal spleen. Normal pancreas. Normal bilateral adrenal glands. Normal right kidney. Normal left kidney. Normal visualized stomach. Normal small intestine. The ascending and transverse colon are dilated with associated air-fluid levels. The appendix is visualized and appears normal. Normal abdominal aorta. Normal inferior vena cava. Normal retroperitoneum. Normal urinary bladder. There are postsurgical changes of L4/L5 with anterior fusion and a disc spacer. There are postsurgical changes within the soft tissues within the prevertebral space and within the lower back. CT/Abdomen/Pelvis without Cont IMPRESSION: Dilated descending and transverse colon associated with air-fluid levels may be secondary to an underlying ileus, cannot exclude associated evolving colitis. Postsurgical changes of L4/L5. Bilateral pleural effusions associated with dependent consolidation within the lower lobes. Electronically Signed: Tati Goodwin MD at 20:13 EST Tel , Service support ,
--- NOTE | 2020-07-02 21:56 | PCM.PN.BLA ---
Progress Note Asked to see patient earlier who has been complaining of severe abdominal discomfort described as gas pain. He last passed gas around 2pm. Stat CT of abdomen/pelvis showed ileus, atelectasis. Physical exam of patient showed abdominal distension, firm to touch, generalized tenderness, guarding but no rebound tenderness. BS are hypoactive. Educated patient on plan of care Will keep patient NPO, IVF, pain control, early mobilization, chewing gum etc Because of the nature of patient's surgery and general exam and propensity for this ileus to be prolonged and complicated; will consult general surgery to be involved in care early in this admission Will check labs including Mg in am STROKE Vital Signs/Narrative: Vital Signs Temp Pulse Resp BP Pulse Ox 07/02/20 18:50 97.8 F 99 18 119/75 98
[2020-07-02 22:05] VITALS: BP 125/73; PULSE 97; RESP 16; TEMP 37.1; O2SAT 96
[2020-07-02] MEDS: 0.9% Normal Saline 1,000 ML 100 ML IV (22:06)
[2020-07-02] MEDS: Amitriptyline 25 MG Tablet PO (22:08)
[2020-07-02] MEDS: Mag Hydrox/Al Hydrox/Simeth 30 ML UDC PO (22:42)
--- NOTE | 2020-07-02 22:46 | NURSING ---
pt walked 3 laps in [place] with walker, gait steady.
[2020-07-02] MEDS: Acetaminophen 325 MG Tablet 650 MG PO (23:20)
[2020-07-03] VITALS (7 sets, daily range): BP systolic 118–127; BP diastolic 61–74; PULSE 88–100; RESP 16; TEMP 36.6–37.1; O2SAT 95–97
[2020-07-03] MEDS: diazePAM 5 MG Tablet PO (01:07)
[2020-07-03] MEDS: Mag Hydrox/Al Hydrox/Simeth 30 ML UDC PO (05:20)
[2020-07-03] MEDS: Acetaminophen 325 MG Tablet 650 MG PO ×3 (05:21→23:06)
[2020-07-03] MEDS: 0.9% Normal Saline 1,000 ML 100 ML IV ×2 (06:53→16:52)
[2020-07-03] MEDS: Bisacodyl 10 MG Suppository RECTAL (06:53)
[2020-07-03 07:10] LABS: Absolute Lymphocyte Count 1.19 X10^3/uL (0.83-4.51); Absolute Neutrophil Count 7.1 X10^3/uL (2.0-7.7); Basophil# 0.03 X10^3/uL; Basophil% 0.3 % (0-1); Eosinophil# 0.09 X10^3/uL; Eosinophils% 0.9 % (0-5); Hematocrit 34.8 % (40-54); Hemoglobin 11.5 g/dL (13.0-16.5); Lymphocyte # 1.19 X10^3/ul (4.0); Lymphocyte % 12.5 % (19-41); Mean Corpuscular Hgb 28.5 pg (27.0-32.0); Mean Corpuscular Volume 86.1 fL (80-94); Mean Platelet Vol. 9.1 fl (6.2-12.0); Monocyte# 1.12 X10^3/uL; Monocyte% 11.8 % (0-10); NRBC Flagged by Analyzer 0 % (0-5); Neutrophil # 7.05 X10^3/uL (2.7-7.7); Neutrophil % 74.1 % (47-70); Platelet Count 288 K/mm3 (150-450); RBC Distribution Width CV 11.8 % (11.6-14.6); RBC Distribution Width SD 37.4 fl (35.1-43.9); Red Blood Count 4.04 M/mm3 (4.6-6.2); White Blood Count 9.5 K/mm3 (4.4-11.0)
--- NOTE | 2020-07-03 07:18 | CON.PCM_ITS ---
Problem List (1) Ileus Status: Acute Reason for Consult Date of Consultation: 07/03/20 History of Present Illness: The patient is a 34 year old M is admitted for postoperative care after spine surgery. The patient notes that he was passing gas yesterday morning but then began to stop and his abdomen became more distended and painful. He said he has not passed gas overnight. He has not had any nausea or vomiting. Past Medical History Medical History: Medical History (Last Reviewed 06/24/20 @ 11:52 by Rashida Riley) H/O fracture of pelvis Z87.81 h/o fracture elbow Allergies No Known Allergies Allergy (Verified 06/30/20 05:37) Home Medications: Ambulatory Orders Medication Instructions Recorded acetaminophen 325 mg capsule 325 mg PO ONCE PRN 05/06/20 amitriptyline 25 mg tablet 25 mg PO QHS tab 05/06/20 bupropion HCl 150 mg 24 hr tablet, 150 mg PO DAILY tab 05/06/20 extended release cholecalciferol (vitamin D3) 1,250 1,250 mcg PO QWEEK cap 05/06/20 mcg (50,000 unit) capsule fluoxetine 20 mg tablet 40 mg PO DAILY tab 05/06/20 ibuprofen 200 mg capsule 200 mg PO Q6H PRN 05/06/20 Surgical History: Surgical History (Last Updated 06/24/20 @ 11:53 by Rashida Riley) History of elbow surgery Z98.890 July 2018 Smoking Status: Never smoker Tobacco Use: Non-smoker - *Family History Maternal Family History: Family History (Last Reviewed 06/24/20 @ 11:52 by Rashida Riley) Father Hypertension Review of Systems Constitutional: Denies: Anorexia, Fever Eyes: Denies: Blurred vision HEENT: Denies: Difficulty Swallowing Cardiovascular: Denies: Chest Pain Gastrointestinal: Reports: Abdominal Pain. Denies: Dyspepsia, Hematemesis, Hematochezia, Nausea, Vomiting Genitourinary: Denies: Dysuria Musculoskeletal: Reports: Back Pain Skin: Denies: Jaundice Neurological: Denies: Balance problems Patient Problems: Active and Suspected Problems (Last Reviewed 06/24/20 @ 11:52 by Rashida Riley) DDD (degenerative disc disease) (Acute) - Physical Exam Vitals/I&O's: Vital Signs Temp Pulse Resp BP Pulse Ox 98.1 F 93 16 118/61 96 02/05/21 05:28 07/03/20 05:28 07/03/20 05:28 07/03/20 05:28 07/03/20 05:28 Oxygen Flow Rate (L/min) 2 Oxygen Delivery Method Room Air Weight: 193 lb 9.054 oz Body Mass Index (BMI) 26.9 Intake and Output for Last 24 Hours 07/01/20 07/02/20 07/03/20 23:59 23:59 23:59 Intake Total 1650 / 1650 2250 / 2250 878.33 / 878.33 Output Total 1450 / 1450 905 / 905 500 / 500 Balance 200 / 200 1345 / 1345 378.33 / 378.33 General: Alert, Oriented x3 Neck: No JVD Lungs: Normal air movement Cardiovascular: Regular rate, Regular Rhythm Abdomen: Soft, Distended, Tender Extremities: No clubbing Musculoskeletal: No Muscle Wasting Neurological: Cranial nerves II-XII grossly intact Psych/Mental Status: Normal Affect Laboratory Results 07/03/20 06:10: WBC 9.5, RBC 4.04 L, Hgb 11.5 L, Hct 34.8 L, MCV 86.1, MCH 28.5, MCHC 33.0, RDW Std Deviation 37.4, RDW Coeff of Lorne 11.8, Plt Count 288, MPV 9.1, Immature Gran % (Auto) 0.400, Neut % (Auto) 74.1 H, Lymph % (Auto) 12.5 L, Nance % (Auto) 11.8 H, Eos % (Auto) 0.9, Baso % (Auto) 0.3, Absolute Neuts (auto) 7.1, Absolute Lymphs (auto) 1.19, Nucleated RBC % 0 07/03/20 06:10: Sodium Pending, Potassium Pending, Chloride Pending, Carbon Dioxide Pending, Anion Gap Pending, BUN Pending, Creatinine Pending, Est GFR (MDRD) Af Amer Pending, Est GFR (MDRD) Non-Af Pending, BUN/Creatinine Ratio Pending, Glucose Pending, Calcium Pending, Magnesium Pending, Total Bilirubin Pending, AST Pending, ALT Pending, Alkaline Phosphatase Pending, Total Protein Pending, Albumin Pending Clinical Impression(s) from Imaging Studies Abdomen/Pelvis CT 07/02/20 18:51 IMPRESSION: Dilated descending and transverse colon associated with air-fluid levels may be secondary to an underlying ileus, cannot exclude associated evolving colitis. Postsurgical changes of L4/L5. Bilateral pleural effusions associated with dependent consolidation within the lower lobes. Electronically Signed: Tati Goodwin MD at 20:13 EST Tel , Service support , Current Medications Acetaminophen (Acetaminophen 325 Mg Tablet) 650 mg PO Q6H PRN PRN PRN Reason: Pain 1-10 or Fever Last Admin: 07/03/20 05:21 Dose: 650 mg Documented by: Hydrocodone Bitart/Acetaminophen (Hydrocodone Bitartrate/Apap 5/325 Tablet) 2 tablet PO Q6H PRN PRN PRN Reason: Pain Score 6-10 Last Admin: 07/02/20 15:57 Dose: 2 tablet Documented by: Al Hydroxide/Mg Hydroxide (Mag Hydrox/Al Hydrox/Simeth 30 Ml Udc) 30 ml PO Q4H PRN PRN PRN Reason: HEARTBURN Last Admin: 07/03/20 05:20 Dose: 30 ml Documented by: Amitriptyline HCl (Amitriptyline 25 Mg Tablet) 25 mg PO QHS [facility] Last Admin: 07/02/20 22:08 Dose: 25 mg Documented by: Bupropion HCl (Bupropion (Xl) 150 Mg Tablet.Xl) 150 mg PO DAILY [facility] Last Admin: 07/02/20 08:40 Dose: 150 mg Documented by: Diazepam (Diazepam 5 Mg Tablet) 5 mg PO Q6H PRN PRN PRN Reason: Muscle Spasms Last Admin: 07/03/20 01:07 Dose: 5 mg Documented by: Enteral Nutritional Formula (Ensure Surgery 237 Ml Liquid) 237 ml PO TIDCM [facility] Last Admin: 07/02/20 17:31 Dose: Not Given Documented by: Ergocalciferol (Ergocalciferol 50,000 Unit Capsule) 50,000 unit PO Mo@1000 [facility] Fluoxetine HCl (Fluoxetine 20 Mg Capsule) 40 mg PO DAILY [facility] Last Admin: 07/02/20 08:39 Dose: 40 mg Documented by: Gabapentin (Gabapentin 300 Mg Capsule) 300 mg PO TIDCM [facility] Last Admin: 07/02/20 17:31 Dose: 300 mg Documented by: Hydromorphone HCl (Hydromorphone 1 Mg/Ml Syringe) 1 mg IV Q4H PRN PRN PRN Reason: PAIN 1-10 Last Admin: 07/02/20 18:49 Dose: 1 mg Documented by: Sodium Chloride () 1,000 mls @ 100 mls/hr IV .Q10H [facility] Last Admin: 07/03/20 06:53 Dose: 100 mls/hr Documented by: Ondansetron HCl (Ondansetron 4 Mg/2 Ml Vial) 4 mg IV Q8H PRN PRN PRN Reason: NAUSEA Last Admin: 07/02/20 18:49 Dose: 4 mg Documented by: Polyethylene Glycol (Polyethylene Glycol 3350 17 Gm Packet) 17 gm PO BID [facility] Last Admin: 07/02/20 22:07 Dose: 17 gm Documented by: Senna/Docusate Sodium (Senna/Docusate Sodium 1 Tablet) 2 tablet PO BID [facility] Last Admin: 07/02/20 22:07 Dose: 2 tablet Documented by: Simethicone (Simethicone 80 Mg Tablet) 80 mg PO TIDPC [facility] Last Admin: 07/02/20 16:29 Dose: 80 mg Documented by: Sodium Chloride (0.9% Saline Lock 10 Ml Syringe) 10 - 40 ml IV UD PRN PRN Reason: SALINE FLUSH Last Admin: 07/02/20 22:07 Dose: 10 ml Documented by: Tamsulosin HCl (Tamsulosin Hcl 0.4 Mg Capsule) 0.4 mg PO DAILY@1730 [facility] Last Admin: 07/02/20 17:32 Dose: 0.4 mg Documented by: Zolpidem Tartrate (Zolpidem Tartrate 5 Mg Tablet) 5 mg PO QHS PRN PRN PRN Reason: INSOMNIA Assessment/Plan All Active Problems (Last Reviewed 06/24/20 @ 11:52 by Rashida Riley) DDD (degenerative disc disease) (Acute) Ileus (Acute) 34-year-old male with postoperative ileus 1. The patient likely has a postoperative ileus due to spine surgery. I reviewed his CT scan it appears that the ileus is affecting mainly colon. His small bowel is nondistended. He is not passing any flatus and he is distended with some generalized tenderness. I have ordered him a Dulcolax suppository to try to stimulate movement from below. Otherwise I recommended staying n.p.o. until he starts passing more significant gas and becomes less distended. At that time he can resume diet. Continue to encourage ambulation. Faheem Corrales MD Pager: [facility] [address] [place] [address], [address] [place] [address] Office:
[2020-07-03 07:43] LABS: ALB/GLOB Ratio 0.7 RATIO (0.9-2.4); AST(SGOT) 32 U/L (15-37); Alanine Aminotransfer ALT/SGPT 28 U/L (16-61); Alkaline Phosphatase 50 U/L (45-117); Anion Gap 3 (5-15); BUN 9 mg/dL (7-18); BUN/Creat Ratio 10.9 RATIO (10-20); Calcium,Total 8.9 mg/dL (8.5-10.1); Chloride 101 mmol/L (98-107); Creatinine, Serum 0.82 mg/dL (0.70-1.30); EST Glomerular Filtration Rate 113 mL/min (>60); Est Glom Filt Rate - Afr Amer 137 mL/min (>60); Estimated Creatinine Clearance 133.92 ml/min; Globulin 4.1 g/dL (2.2-4.2); Glucose 111 mg/dL (74-106); Magnesium 2.4 mg/dL (1.6-2.6); Potassium 3.6 mmol/L (3.5-5.1); Protein, Total 7.1 g/dL (6.4-8.2); Sodium Level 136 mmol/L (136-145)
--- NOTE | 2020-07-03 07:50 | PCM.PN.HOSP ---
Patient Problems: Active and Suspected Problems (Last Reviewed 06/24/20 @ 11:52 by Rashida Riley) DDD (degenerative disc disease) (Acute) Ileus (Acute) Reason for Visit: Follow-up on postop ileus/post spine surgery Subjective: Patient was seen and examined. He still has abdominal distention. Has not moved his bowels. Reassured on management of postop ileus. Denied any fever or chills. Encouraged him to move around. Objective: Physical exam: General: Alert, Oriented x3, Cooperative, No apparent distress, Well developed, Well nourished Oral: Moist Mucosa Neck: Supple, Trachea Midline Lungs: Clear to auscultation, Normal air movement, No rhonchi, No wheeze, No rales Cardiovascular: Regular rate, Regular Rhythm, Normal S1, Normal S2, No murmurs, No Ectopic Activity, No rub noted, No Gallop Abdomen: Bowel Sounds hypoactrive, abdomen is distended, Soft, slight generalized tenderness Extremities: No clubbing, No cyanosis, No edema, Capillary Refill Less than 3 Seconds, Peripheral Pulses Normal Neurological: Cranial nerves II-XII grossly intact Psych/Mental Status: Appropriate, Flat Affect Vitals/I&O's: Vital Signs Temp Pulse Resp BP Pulse Ox 98.5 F 92 16 127/74 H 97 07/03/20 07:29 07/03/20 07:29 07/03/20 07:29 07/03/20 07:29 07/03/20 07:29 Oxygen Flow Rate (L/min) 2 Oxygen Delivery Method Room Air Weight: 87.8 kg Body Mass Index (BMI) 26.9 Intake and Output for Last 24 Hours 07/01/20 07/02/20 07/03/20 23:59 23:59 23:59 Intake Total 1650 / 1650 2250 / 2250 878.33 / 878.33 Output Total 1450 / 1450 905 / 905 500 / 500 Balance 200 / 200 1345 / 1345 378.33 / 378.33 Laboratory Results 07/03/20 06:10: WBC 9.5, RBC 4.04 L, Hgb 11.5 L, Hct 34.8 L, MCV 86.1, MCH 28.5, MCHC 33.0, RDW Std Deviation 37.4, RDW Coeff of [place]orne 11.8, Plt Count 288, MPV 9.1, Immature Gran % (Auto) 0.400, Neut % (Auto) 74.1 H, Lymph % (Auto) 12.5 L, [place] % (Auto) 11.8 H, Eos % (Auto) 0.9, Baso % (Auto) 0.3, Absolute Neuts (auto) 7.1, Absolute Lymphs (auto) 1.19, Nucleated RBC % 0 07/03/20 06:10: Sodium 136, Potassium 3.6, Chloride 101, Carbon Dioxide 32.0, Anion Gap 3 L, BUN 9, Creatinine 0.82, Estim Creat Clear Calc 133.92, Est GFR (MDRD) Af Amer 137, Est GFR (MDRD) Non-Af 113, BUN/Creatinine Ratio 10.9, Glucose 111 H, Calcium 8.9, Magnesium 2.4, Total Bilirubin 0.40, AST 32, ALT 28, Alkaline Phosphatase 50, Total Protein 7.1, Albumin 3.0 L, Globulin 4.1, Albumin/Globulin Ratio 0.7 L Current Medications Acetaminophen (Acetaminophen 325 Mg Tablet) 650 mg PO Q6H PRN PRN PRN Reason: Pain 1-10 or Fever Last Admin: 07/03/20 05:21 Dose: 650 mg Documented by: Hydrocodone Bitart/Acetaminophen (Hydrocodone Bitartrate/Apap 5/325 Tablet) 2 tablet PO Q6H PRN PRN PRN Reason: Pain Score 6-10 Last Admin: 07/02/20 15:57 Dose: 2 tablet Documented by: Al Hydroxide/Mg Hydroxide (Mag Hydrox/Al Hydrox/Simeth 30 Ml Udc) 30 ml PO Q4H PRN PRN PRN Reason: HEARTBURN Last Admin: 07/03/20 05:20 Dose: 30 ml Documented by: Amitriptyline HCl (Amitriptyline 25 Mg Tablet) 25 mg PO QHS [facility] Last Admin: 07/02/20 22:08 Dose: 25 mg Documented by: Bupropion HCl (Bupropion (Xl) 150 Mg Tablet.Xl) 150 mg PO DAILY [facility] Last Admin: 07/02/20 08:40 Dose: 150 mg Documented by: Diazepam (Diazepam 5 Mg Tablet) 5 mg PO Q6H PRN PRN PRN Reason: Muscle Spasms Last Admin: 07/03/20 01:07 Dose: 5 mg Documented by: Enteral Nutritional Formula (Ensure Surgery 237 Ml Liquid) 237 ml PO TIDCM [facility] Last Admin: 07/02/20 17:31 Dose: Not Given Documented by: Ergocalciferol (Ergocalciferol 50,000 Unit Capsule) 50,000 unit PO Mo@1000 [facility] Fluoxetine HCl (Fluoxetine 20 Mg Capsule) 40 mg PO DAILY [facility] Last Admin: 07/02/20 08:39 Dose: 40 mg Documented by: Gabapentin (Gabapentin 300 Mg Capsule) 300 mg PO TIDCM [facility] Last Admin: 07/02/20 17:31 Dose: 300 mg Documented by: Hydromorphone HCl (Hydromorphone 1 Mg/Ml Syringe) 1 mg IV Q4H PRN PRN PRN Reason: PAIN 1-10 Last Admin: 07/02/20 18:49 Dose: 1 mg Documented by: Sodium Chloride () 1,000 mls @ 100 mls/hr IV .Q10H [facility] Last Admin: 07/03/20 06:53 Dose: 100 mls/hr Documented by: Ondansetron HCl (Ondansetron 4 Mg/2 Ml Vial) 4 mg IV Q8H PRN PRN PRN Reason: NAUSEA Last Admin: 07/02/20 18:49 Dose: 4 mg Documented by: Polyethylene Glycol (Polyethylene Glycol 3350 17 Gm Packet) 17 gm PO BID [facility] Last Admin: 07/02/20 22:07 Dose: 17 gm Documented by: Senna/Docusate Sodium (Senna/Docusate Sodium 1 Tablet) 2 tablet PO BID [facility] Last Admin: 07/02/20 22:07 Dose: 2 tablet Documented by: Simethicone (Simethicone 80 Mg Tablet) 80 mg PO TIDPC [facility] Last Admin: 07/02/20 16:29 Dose: 80 mg Documented by: Sodium Chloride (0.9% Saline Lock 10 Ml Syringe) 10 - 40 ml IV UD PRN PRN Reason: SALINE FLUSH Last Admin: 07/02/20 22:07 Dose: 10 ml Documented by: Tamsulosin HCl (Tamsulosin Hcl 0.4 Mg Capsule) 0.4 mg PO DAILY@1730 [facility] Last Admin: 07/02/20 17:32 Dose: 0.4 mg Documented by: Zolpidem Tartrate (Zolpidem Tartrate 5 Mg Tablet) 5 mg PO QHS PRN PRN PRN Reason: INSOMNIA STROKE Vital Signs/Narrative: Vital Signs Temp Pulse Resp BP Pulse Ox 07/03/20 07:29 98.5 F 92 16 127/74 H 97 07/03/20 05:28 98.1 F 93 16 118/61 96 Medical Necessity - Tobacco Use Smoking Status: Never smoker Tobacco Use: Non-smoker Assessment/Plan All Active Problems (Last Reviewed 06/24/20 @ 11:52 by Rashida Riley) DDD (degenerative disc disease) (Acute) Ileus (Acute) 1. Acute postop ileus, persistent, Patient has been kept n.p.o, on IV fluids. No Electrolyte imbalances seen Encourage ambulation, chewing gum, pain control 2. POD #3 status post L4-L5 laminectomy/360 degree fusion Pain is fairly controlled, continue on current pain regiment with Vicodin, morphine as needed 3. Urine retention, resolved, continue on Flomax 4. Depression, continue on bupropion, amitriptyline 5. DVT prophylaxis per primary team Inpatient E&M: 22361 Subs Hosp L2
[2020-07-03] MEDS: buPROPion (XL) 150 MG TABLET.XL PO (08:21)
[2020-07-03] MEDS: Gabapentin 300 MG Capsule PO ×3 (08:21→16:52)
[2020-07-03] MEDS: Polyethylene Glycol 3350 17 GM PACKET PO ×2 (08:21→23:06)
[2020-07-03] MEDS: FLUoxetine 20 MG Capsule 40 MG PO (08:21)
[2020-07-03] MEDS: Senna/Docusate Sodium 1 Tablet 2 TABLET PO ×2 (08:21→23:06)
--- NOTE | 2020-07-03 13:16 | PCM.PN.BLA ---
Progress Note Postop day #3: Patient still is bloated. He did have a little bit of a bowel movement this morning and he still has flatulence. Been seen by Dr. Arrington and one of the surgeons at this time to have him n.p.o. until his ileus resolved.. Other than that his low back pain is significantly better than it was. He has been up and walking around he actually has not taken anything for pain today. I encouraged him not to if he could stand it which apparently he can and to continue walking around and help the ileus resolved. Tomorrow and consider discharge if his ileus is resolved. STROKE Vital Signs/Narrative: Vital Signs Temp Pulse Resp BP Pulse Ox 07/03/20 12:25 98.8 F 93 16 127/72 H 97
[2020-07-03] MEDS: Tamsulosin HCl 0.4 MG Capsule PO (16:52)
[2020-07-03] MEDS: Amitriptyline 25 MG Tablet PO (23:05)
[2020-07-04] MEDS: 0.9% Normal Saline 1,000 ML 100 ML IV (02:58)
[2020-07-04 03:02] VITALS: BP 121/72; PULSE 79; RESP 16; TEMP 36.5; O2SAT 96
[2020-07-04] MEDS: Acetaminophen 325 MG Tablet 650 MG PO ×2 (05:44→14:10)
[2020-07-04 07:20] VITALS: O2SAT 96
--- NOTE | 2020-07-04 07:43 | PN_ITS ---
Patient Problems: Active and Suspected Problems (Last Reviewed 06/24/20 @ 11:52 by Rashida Riley) DDD (degenerative disc disease) (Acute) Ileus (Acute) Reason for Visit: Follow-up on postop ileus/post spine surgery Subjective: Patient was seen and examined. He has had several bowel movements and moved flatus several times. Denied any new complaints. He has not used any narcotics more than 24 hours. He has been on Tylenol for pain. He feels improved. Objective: Physical exam: General: Alert, Oriented x3, Cooperative, No apparent distress, Well developed, Well nourished Oral: Moist Mucosa Neck: Supple, Trachea Midline Lungs: Clear to auscultation, Normal air movement, No rhonchi, No wheeze, No rales Cardiovascular: Regular rate, Regular Rhythm, Normal S1, Normal S2, No murmurs, No Ectopic Activity, No rub noted, No Gallop Abdomen: Bowel Sounds hypoactrive, abdomen is distended, Soft, slight generalized tenderness Extremities: No clubbing, No cyanosis, No edema, Capillary Refill Less than 3 Seconds, Peripheral Pulses Normal Neurological: Cranial nerves II-XII grossly intact Psych/Mental Status: Appropriate, Flat Affect Vitals/I&O's: Vital Signs Temp Pulse Resp BP Pulse Ox 97.7 F L 79 16 121/72 H 96 07/04/20 03:02 07/04/20 03:02 07/04/20 03:02 07/04/20 03:02 07/04/20 03:02 Oxygen Flow Rate (L/min) 2 Oxygen Delivery Method Room Air Weight: 87.8 kg Body Mass Index (BMI) 26.9 Intake and Output for Last 24 Hours 07/02/20 07/03/20 07/04/20 23:59 23:59 23:59 Intake Total 2250 / 2250 2036.66 / 2036.66 1000 / 1000 Output Total 905 / 905 500 / 500 300 / 300 Balance 1345 / 1345 1536.66 / 1536.66 700 / 700 Laboratory Results 07/03/20 06:10: Sodium 136, Potassium 3.6, Chloride 101, Carbon Dioxide 32.0, Anion Gap 3 L, BUN 9, Creatinine 0.82, Estim Creat Clear Calc 133.92, Est GFR (MDRD) Af Amer 137, Est GFR (MDRD) Non-Af 113, BUN/Creatinine Ratio 10.9, Glucose 111 H, Calcium 8.9, Magnesium 2.4, Total Bilirubin 0.40, AST 32, ALT 28, Alkaline Phosphatase 50, Total Protein 7.1, Albumin 3.0 L, Globulin 4.1, Albumin/Globulin Ratio 0.7 L Current Medications Acetaminophen (Acetaminophen 325 Mg Tablet) 650 mg PO Q6H PRN PRN PRN Reason: Pain 1-10 or Fever Last Admin: 07/04/20 05:44 Dose: 650 mg Documented by: Hydrocodone Bitart/Acetaminophen (Hydrocodone Bitartrate/Apap 5/325 Tablet) 2 tablet PO Q6H PRN PRN PRN Reason: Pain Score 6-10 Last Admin: 07/02/20 15:57 Dose: 2 tablet Documented by: Al Hydroxide/Mg Hydroxide (Mag Hydrox/Al Hydrox/Simeth 30 Ml Udc) 30 ml PO Q4H PRN PRN PRN Reason: HEARTBURN Last Admin: 07/03/20 05:20 Dose: 30 ml Documented by: Amitriptyline HCl (Amitriptyline 25 Mg Tablet) 25 mg PO QHS [facility] Last Admin: 07/03/20 23:05 Dose: 25 mg Documented by: Bupropion HCl (Bupropion (Xl) 150 Mg Tablet.Xl) 150 mg PO DAILY [facility] Last Admin: 07/03/20 08:21 Dose: 150 mg Documented by: Diazepam (Diazepam 5 Mg Tablet) 5 mg PO Q6H PRN PRN PRN Reason: Muscle Spasms Last Admin: 07/03/20 01:07 Dose: 5 mg Documented by: Enteral Nutritional Formula (Ensure Surgery 237 Ml Liquid) 237 ml PO TIDCM [facility] Last Admin: 07/04/20 07:26 Dose: Not Given Documented by: Ergocalciferol (Ergocalciferol 50,000 Unit Capsule) 50,000 unit PO Mo@1000 [facility] Fluoxetine HCl (Fluoxetine 20 Mg Capsule) 40 mg PO DAILY [facility] Last Admin: 07/03/20 08:21 Dose: 40 mg Documented by: Gabapentin (Gabapentin 300 Mg Capsule) 300 mg PO TIDCM [facility] Last Admin: 07/03/20 16:52 Dose: 300 mg Documented by: Hydromorphone HCl (Hydromorphone 1 Mg/Ml Syringe) 1 mg IV Q4H PRN PRN PRN Reason: PAIN 1-10 Last Admin: 07/02/20 18:49 Dose: 1 mg Documented by: Sodium Chloride () 1,000 mls @ 100 mls/hr IV .Q10H [facility] Last Admin: 07/04/20 02:58 Dose: 100 mls/hr Documented by: Ondansetron HCl (Ondansetron 4 Mg/2 Ml Vial) 4 mg IV Q8H PRN PRN PRN Reason: NAUSEA Last Admin: 07/02/20 18:49 Dose: 4 mg Documented by: Polyethylene Glycol (Polyethylene Glycol 3350 17 Gm Packet) 17 gm PO BID [facility] Last Admin: 07/03/20 23:06 Dose: 17 gm Documented by: Senna/Docusate Sodium (Senna/Docusate Sodium 1 Tablet) 2 tablet PO BID [facility] Last Admin: 07/03/20 23:06 Dose: 2 tablet Documented by: Simethicone (Simethicone 80 Mg Tablet) 80 mg PO TIDPC [facility] Last Admin: 07/03/20 16:52 Dose: 80 mg Documented by: Sodium Chloride (0.9% Saline Lock 10 Ml Syringe) 10 - 40 ml IV UD PRN PRN Reason: SALINE FLUSH Last Admin: 07/02/20 22:07 Dose: 10 ml Documented by: Tamsulosin HCl (Tamsulosin Hcl 0.4 Mg Capsule) 0.4 mg PO DAILY@1730 [facility] Last Admin: 07/03/20 16:52 Dose: 0.4 mg Documented by: Zolpidem Tartrate (Zolpidem Tartrate 5 Mg Tablet) 5 mg PO QHS PRN PRN PRN Reason: INSOMNIA Medical Necessity - Tobacco Use Smoking Status: Never smoker Tobacco Use: Non-smoker Assessment/Plan All Active Problems (Last Reviewed 06/24/20 @ 11:52 by Rashida Riley) DDD (degenerative disc disease) (Acute) Ileus (Acute) 1. Acute postop ileus, resolved, patient has tolerated advancement in his diet Continue to encourage ambulation 2. POD #4 status post L4-L5 laminectomy/360 degree fusion Pain is fairly controlled, continue on current pain regiment with Vicodin, m orphine as needed 3. Urine retention, resolved, continue on Flomax 4. Depression, continue on bupropion, amitriptyline 5. DVT prophylaxis per primary team Inpatient E&M: 90193 Subs Hosp L2
[2020-07-04 09:02] VITALS: BP 124/80; PULSE 80; RESP 18; TEMP 36.7; O2SAT 98
[2020-07-04] MEDS: Gabapentin 300 MG Capsule PO ×2 (10:01→12:54)
[2020-07-04] MEDS: Polyethylene Glycol 3350 17 GM PACKET PO (10:01)
[2020-07-04] MEDS: FLUoxetine 20 MG Capsule 40 MG PO (10:02)
[2020-07-04] MEDS: Senna/Docusate Sodium 1 Tablet 2 TABLET PO (10:02)
[2020-07-04] MEDS: buPROPion (XL) 150 MG TABLET.XL PO (10:03)
--- NOTE | 2020-07-04 10:46 | PCM.PN.BLA ---
Progress Note Postop day #4: Patient is passing a lot of gas now and has had several bowel movements. His abdomen is definitely softer he is a lot better. His back pain that he had originally is gone. His leg pain is gone. Saw Dr. Childs today Dr. Childs gave him his blessing to go home. His dressing is dry. Gave him directions regarding his diet ambulation etc. He is will be discharged today. STROKE Vital Signs/Narrative: Vital Signs Temp Pulse Resp BP Pulse Ox 07/04/20 09:02 98.0 F 80 18 124/80 H 98 07/04/20 07:20 96
--- NOTE | 2020-07-04 10:51 | DS.PCM_ITS ---
Discharge Date and Diagnosis - Problem List Patient Problems: Active and Suspected Problems (Last Reviewed 06/24/20 @ 11:52 by Rashida Riley) DDD (degenerative disc disease) (Acute) Ileus (Acute) Date of Admission: 06/30/20 Date of Discharge: 07/04/20 - Primary Discharge Diagnosis Acute Problems: Active Problems (Last Reviewed 06/24/20 @ 11:52 by Rashida Riley) DDD (degenerative disc disease) (Acute) Ileus (Acute) Hospital Course and Treatment Summary of Care Provided: The patient is a 34 year old M [] Patient Problems: Active and Suspected Problems (Last Reviewed 06/24/20 @ 11:52 by Rashida Riley) DDD (degenerative disc disease) (Acute) Ileus (Acute) - Physical Exam Vitals/I&O's: Vital Signs Temp Pulse Resp BP Pulse Ox 98.0 F 80 18 124/80 H 98 07/04/20 09:02 07/04/20 09:02 07/04/20 09:02 07/04/20 09:02 07/04/20 09:02 Oxygen Flow Rate (L/min) 2 Oxygen Delivery Method Room Air Weight: 193 lb 9.054 oz Body Mass Index (BMI) 26.9 Intake and Output for Last 24 Hours 07/02/20 07/03/20 07/04/20 23:59 23:59 23:59 Intake Total 2250 / 2250 2036.66 / 2036.66 1000 / 1000 Output Total 905 / 905 500 / 500 300 / 300 Balance 1345 / 1345 1536.66 / 1536.66 700 / 700 Current Medications Acetaminophen (Acetaminophen 325 Mg Tablet) 650 mg PO Q6H PRN PRN PRN Reason: Pain 1-10 or Fever Last Admin: 07/04/20 05:44 Dose: 650 mg Documented by: Hydrocodone Bitart/Acetaminophen (Hydrocodone Bitartrate/Apap 5/325 Tablet) 2 tablet PO Q6H PRN PRN PRN Reason: Pain Score 6-10 Last Admin: 07/02/20 15:57 Dose: 2 tablet Documented by: Al Hydroxide/Mg Hydroxide (Mag Hydrox/Al Hydrox/Simeth 30 Ml Udc) 30 ml PO Q4H PRN PRN PRN Reason: HEARTBURN Last Admin: 07/03/20 05:20 Dose: 30 ml Documented by: Amitriptyline HCl (Amitriptyline 25 Mg Tablet) 25 mg PO QHS [facility] Last Admin: 07/03/20 23:05 Dose: 25 mg Documented by: Bupropion HCl (Bupropion (Xl) 150 Mg Tablet.Xl) 150 mg PO DAILY [facility] Last Admin: 07/04/20 10:03 Dose: 150 mg Documented by: Diazepam (Diazepam 5 Mg Tablet) 5 mg PO Q6H PRN PRN PRN Reason: Muscle Spasms Last Admin: 07/03/20 01:07 Dose: 5 mg Documented by: Enteral Nutritional Formula (Ensure Surgery 237 Ml Liquid) 237 ml PO TIDCM [facility] Last Admin: 07/04/20 07:26 Dose: Not Given Documented by: Ergocalciferol (Ergocalciferol 50,000 Unit Capsule) 50,000 unit PO Mo@1000 [facility] Fluoxetine HCl (Fluoxetine 20 Mg Capsule) 40 mg PO DAILY [facility] Last Admin: 07/04/20 10:02 Dose: 40 mg Documented by: Gabapentin (Gabapentin 300 Mg Capsule) 300 mg PO TIDCM [facility] Last Admin: 07/04/20 10:01 Dose: 300 mg Documented by: Hydromorphone HCl (Hydromorphone 1 Mg/Ml Syringe) 1 mg IV Q4H PRN PRN PRN Reason: PAIN 1-10 Last Admin: 07/02/20 18:49 Dose: 1 mg Documented by: Sodium Chloride () 1,000 mls @ 100 mls/hr IV .Q10H [facility] Last Admin: 07/04/20 02:58 Dose: 100 mls/hr Documented by: Ondansetron HCl (Ondansetron 4 Mg/2 Ml Vial) 4 mg IV Q8H PRN PRN PRN Reason: NAUSEA Last Admin: 07/02/20 18:49 Dose: 4 mg Documented by: Polyethylene Glycol (Polyethylene Glycol 3350 17 Gm Packet) 17 gm PO BID [facility] Last Admin: 07/04/20 10:01 Dose: 17 gm Documented by: Senna/Docusate Sodium (Senna/Docusate Sodium 1 Tablet) 2 tablet PO BID [facility] Last Admin: 07/04/20 10:02 Dose: 2 tablet Documented by: Simethicone (Simethicone 80 Mg Tablet) 80 mg PO TIDPC [facility] Last Admin: 07/04/20 10:01 Dose: 80 mg Documented by: Sodium Chloride (0.9% Saline Lock 10 Ml Syringe) 10 - 40 ml IV UD PRN PRN Reason: SALINE FLUSH Last Admin: 07/02/20 22:07 Dose: 10 ml Documented by: Tamsulosin HCl (Tamsulosin Hcl 0.4 Mg Capsule) 0.4 mg PO DAILY@1730 [facility] Last Admin: 07/03/20 16:52 Dose: 0.4 mg Documented by: Zolpidem Tartrate (Zolpidem Tartrate 5 Mg Tablet) 5 mg PO QHS PRN PRN PRN Reason: INSOMNIA Home Medications: Medications to take at Discharge acetaminophen 325 mg capsule 325 mg PO ONCE PRN 05/06/20 amitriptyline 25 mg tablet 25 mg PO QHS tab 05/06/20 bupropion HCl 150 mg 24 hr tablet, extended release 150 mg PO DAILY tab 05/06/20 cholecalciferol (vitamin D3) 1,250 mcg (50,000 unit) capsule 1,250 mcg PO QWEEK cap 05/06/20 fluoxetine 20 mg tablet 40 mg PO DAILY tab 05/06/20 Other Amb Orders: COVID 19 AG RAPID (RN COLLECT) Time Frame: 06/29/20, Facility: [facility], Location: Laboratory Primary Care Physician: Roly Carranza MD [Primary Care Provider] - Medical Necessity - Tobacco Use Smoking Status: Never smoker Tobacco Use: Non-smoker Meaningful Use Info Meaningful Use Diagnoses (Choose all that apply): None applicable
[2020-07-04 11:00] VITALS: PULSE 70
[2020-07-04 13:47] VITALS: BP 126/83; PULSE 92; RESP 18; TEMP 36.6; O2SAT 96
--- NOTE | 2020-07-04 13:48 | PCM.DC.ORTHO ---
Discharge Diet: No Restrictions Discharge Activity: May not drive while taking narcotic pain medications., May Not Shower - until Monday May shower in (days): 3 Weight Bearing Status: Weight bearing as tolerated Lifting Restrictions: No lifting over 2 pounds Additional Activity Instructions:: No lifting, no bending, no twisting. Call your doctor if your incision/area has: Sudden Increased Bleeding, Increased Pain/ Swelling, Increased Redness, Foul Smelling Discharge Call your doctor if you observe: Fever of 101 or Higher, Inability to urinate, Inability to have a bowel movement, Shortness of breath, Calf discomfort, Uncontrolled pain Suture Line Care: Avoid Pulling/Pushing, Avoid Pinching/Bending Change Dressing in (Days):: 3 Remove Dressing in (days):: 3 Cleanse incision/area with: Keep Dressing Clean & Dry - Until Monday Allergies/Adverse Reactions: Allergies No Known Allergies Allergy (Verified 06/30/20 05:37) Medications to take at Discharge acetaminophen 325 mg capsule 325 mg PO ONCE PRN 05/06/20 amitriptyline 25 mg tablet 25 mg PO QHS tab 05/06/20 bupropion HCl 150 mg 24 hr tablet, extended release 150 mg PO DAILY tab 05/06/20 cholecalciferol (vitamin D3) 1,250 mcg (50,000 unit) capsule 1,250 mcg PO QWEEK cap 05/06/20 fluoxetine 20 mg tablet 40 mg PO DAILY tab 05/06/20 Orders to be completed after discharge: COVID 19 AG RAPID (RN COLLECT) Time Frame: 06/29/20, Facility: [facility], Location: Laboratory Primary Care Physician: Roly Carranza MD [Primary Care Provider] - Test Results: Test results from this visit will be discussed in further detail at your follow-up appointment, if applicable. Please Follow Up With: Oscar Scott DO - 2 week post-op check When: 10 days Proposed Discharge Date: 07/04/20
--- NOTE | 2020-07-04 13:56 | DS.PCM_ITS ---
Discharge Date and Diagnosis - Problem List Patient Problems: Active and Suspected Problems (Last Reviewed 06/24/20 @ 11:52 by Rashida Riley) DDD (degenerative disc disease) (Acute) Ileus (Acute) Date of Admission: 06/30/20 Date of Discharge: 07/04/20 - Primary Discharge Diagnosis Acute Problems: Active Problems (Last Reviewed 06/24/20 @ 11:52 by Rashida Riley) DDD (degenerative disc disease) (Acute) Ileus (Acute) S/P lumbar fusion Hospital Course and Treatment Operations: - - Left-sided lumbar laminectomy discectomy L4-5 with posterior fusion and internal segmental fixation Summary of Care Provided: The patient is a 34 year old M who underwent left-sided lumbar laminectomy discectomy L4-5 with posterior fusion and internal segmental fixation on June 30. Patient completed procedure without any complications and was transferred to the [facility] for rehabilitation and recovery. Postoperatively patient had immediate improvement in his chronic pelvic and leg pains. He had some mild incisional pains that were well controlled with pain medications. Patient was able to ambulate very quickly postoperatively. He did unfortunately have some problems with some bloating and a mild ileus and therefore general surgery was consulted which resulted in keeping him n.p.o. until he was able to begin passing gas and that subsequently having bowel movements. Patient states that since then he has felt very mild bloating but a lot better and continues to pass gas and have regular bowel movements. Patient has had no signs of inflammation, infection, seroma/hematoma at the incision sites. He has soft compartments throughout the extremities and no calf tenderness and negative Homans. He has normal sensation to light touch throughout the extremities and intact motor function of bilateral lower extremities. With resolution of his ileus, well-controlled pain, and very good improvement in his preoperative pain/condition patient is able to be discharged today. Patient Problems: Active and Suspected Problems (Last Reviewed 06/24/20 @ 11:52 by Rashida Riley) DDD (degenerative disc disease) (Acute) Ileus (Acute) - Physical Exam Vitals/I&O's: Vital Signs Temp Pulse Resp BP Pulse Ox 98.0 F 70 18 124/80 H 98 07/04/20 09:02 07/04/20 11:00 07/04/20 09:02 07/04/20 09:02 07/04/20 09:02 Oxygen Flow Rate (L/min) 2 Oxygen Delivery Method Room Air Weight: 193 lb 9.054 oz Body Mass Index (BMI) 26.9 Intake and Output for Last 24 Hours 07/02/20 07/03/20 07/04/20 23:59 23:59 23:59 Intake Total 2250 / 2250 2036.66 / 2036.66 1000 / 1000 Output Total 905 / 905 500 / 500 300 / 300 Balance 1345 / 1345 1536.66 / 1536.66 700 / 700 General: Alert, Oriented x3, Cooperative, No apparent distress Lungs: Normal air movement Abdomen: Soft, Passing Flatus, Distended - Minor distention Extremities: No cyanosis, No Calf Tenderness Skin: Incision - Varinder incision still covered with occlusive dressing. No that surrounding erythema, discharge, warmth, or other signs of inflammation or infection. Lumbar incision shows indwelling sampson with good approximation and no signs of inflammation or infection. Musculoskeletal: No Muscle Wasting Neurological: Neuro grossly intact, Sensory exam intact to light touch and pain Current Medications Acetaminophen (Acetaminophen 325 Mg Tablet) 650 mg PO Q6H PRN PRN PRN Reason: Pain 1-10 or Fever Last Admin: 07/04/20 05:44 Dose: 650 mg Documented by: Hydrocodone Bitart/Acetaminophen (Hydrocodone Bitartrate/Apap 5/325 Tablet) 2 tablet PO Q6H PRN PRN PRN Reason: Pain Score 6-10 Last Admin: 07/02/20 15:57 Dose: 2 tablet Documented by: Al Hydroxide/Mg Hydroxide (Mag Hydrox/Al Hydrox/Simeth 30 Ml Udc) 30 ml PO Q4H PRN PRN PRN Reason: HEARTBURN Last Admin: 07/03/20 05:20 Dose: 30 ml Documented by: Amitriptyline HCl (Amitriptyline 25 Mg Tablet) 25 mg PO QHS SARATH Last Admin: 07/03/20 23:05 Dose: 25 mg Documented by: Bupropion HCl (Bupropion (Xl) 150 Mg Tablet.Xl) 150 mg PO DAILY SARATH Last Admin: 07/04/20 10:03 Dose: 150 mg Documented by: Diazepam (Diazepam 5 Mg Tablet) 5 mg PO Q6H PRN PRN PRN Reason: Muscle Spasms Last Admin: 07/03/20 01:07 Dose: 5 mg Documented by: Enteral Nutritional Formula (Ensure Surgery 237 Ml Liquid) 237 ml PO TIDCM [facility] Last Admin: 07/04/20 07:26 Dose: Not Given Documented by: Ergocalciferol (Ergocalciferol 50,000 Unit Capsule) 50,000 unit PO Mo@1000 [facility] Fluoxetine HCl (Fluoxetine 20 Mg Capsule) 40 mg PO DAILY [facility] Last Admin: 07/04/20 10:02 Dose: 40 mg Documented by: Gabapentin (Gabapentin 300 Mg Capsule) 300 mg PO TIDCM [facility] Last Admin: 07/04/20 12:54 Dose: 300 mg Documented by: Hydromorphone HCl (Hydromorphone 1 Mg/Ml Syringe) 1 mg IV Q4H PRN PRN PRN Reason: PAIN 1-10 Last Admin: 07/02/20 18:49 Dose: 1 mg Documented by: Sodium Chloride () 1,000 mls @ 100 mls/hr IV .Q10H [facility] Last Admin: 07/04/20 02:58 Dose: 100 mls/hr Documented by: Ondansetron HCl (Ondansetron 4 Mg/2 Ml Vial) 4 mg IV Q8H PRN PRN PRN Reason: NAUSEA Last Admin: 07/02/20 18:49 Dose: 4 mg Documented by: Polyethylene Glycol (Polyethylene Glycol 3350 17 Gm Packet) 17 gm PO BID [facility] Last Admin: 07/04/20 10:01 Dose: 17 gm Documented by: Senna/Docusate Sodium (Senna/Docusate Sodium 1 Tablet) 2 tablet PO BID [facility] Last Admin: 07/04/20 10:02 Dose: 2 tablet Documented by: Simethicone (Simethicone 80 Mg Tablet) 80 mg PO TIDPC [facility] Last Admin: 07/04/20 10:01 Dose: 80 mg Documented by: Sodium Chloride (0.9% Saline Lock 10 Ml Syringe) 10 - 40 ml IV UD PRN PRN Reason: SALINE FLUSH Last Admin: 07/02/20 22:07 Dose: 10 ml Documented by: Tamsulosin HCl (Tamsulosin Hcl 0.4 Mg Capsule) 0.4 mg PO DAILY@1730 [facility] Last Admin: 07/03/20 16:52 Dose: 0.4 mg Documented by: Zolpidem Tartrate (Zolpidem Tartrate 5 Mg Tablet) 5 mg PO QHS PRN PRN PRN Reason: INSOMNIA Discharge Diet: No Restrictions Discharge Activity: May not drive while taking narcotic pain medications., May Not Shower - until Monday May shower in (days): 3 Weight Bearing Status: Weight bearing as tolerated Additional Activity Instructions:: No lifting, no bending, no twisting. Call your doctor if your incision/area has: Sudden Increased Bleeding, Increased Pain/ Swelling, Increased Redness, Foul Smelling Discharge Call your doctor if you observe: Fever of 101 or Higher, Inability to urinate, Inability to have a bowel movement, Shortness of breath, Calf discomfort, Uncontrolled pain Suture Line Care: Avoid Pulling/Pushing, Avoid Pinching/Bending Change Dressing in (Days):: 3 Remove Dressing in (days):: 3 Cleanse incision/area with: Keep Dressing Clean & Dry - Until Monday Home Medications: Medications to take at Discharge acetaminophen 325 mg capsule 325 mg PO ONCE PRN 05/06/20 amitriptyline 25 mg tablet 25 mg PO QHS tab 05/06/20 bupropion HCl 150 mg 24 hr tablet, extended release 150 mg PO DAILY tab 05/06/20 cholecalciferol (vitamin D3) 1,250 mcg (50,000 unit) capsule 1,250 mcg PO QWEEK cap 05/06/20 fluoxetine 20 mg tablet 40 mg PO DAILY tab 05/06/20 Other Amb Orders: COVID 19 AG RAPID (RN COLLECT) Time Frame: 06/29/20, Facility: [facility], Location: Laboratory Primary Care Physician: Roly Carranza MD [Primary Care Provider] - Please Follow Up With: Oscar Scott DO - 2 week post-op check When: 10 days Medical Necessity - Tobacco Use Smoking Status: Never smoker Tobacco Use: Non-smoker Meaningful Use Info Meaningful Use Diagnoses (Choose all that apply): None applicable
== END 2020-07-04 15:18 | disposition home or self-care (01) | DRG 454 ==
LOC: ACINP 05:30 → MS3 16:28
PROVIDERS: Anesthesiology; Internal Medicine; Admitting Provider Orthopaedic Surgery; PCP Family Medicine; Referring Provider Orthopaedic Surgery; Visit Provider Internal Medicine
PROC: 0SG0071 Fusion of Lumbar Vertebral Joint with Autologous Tissue Substitute, Posterior Approach, Posterior Column, Open Approach (ICD-10-PCS; principal; 2020-06-30 07:00)
DX: M51.16 Intervertebral disc disorders with radiculopathy, lumbar region (principal); G83.4 Cauda equina syndrome; K56.7 Ileus, unspecified; K91.89 Other postprocedural complications and disorders of digestive system; F32.9 Major depressive disorder, single episode, unspecified; R33.9 Retention of urine, unspecified; Z79.899 Other long term (current) drug therapy
CPT/HCPCS: 36415; 72020; 74176; 80048; 80053; 82962; 83735; 85025; 86703; 86704; 86705; 86706; 86708; 86709; 86803; 87077; 87081; 87340; 88304; 93005; 97110; 97116; 97162; 97530; C1713; J7030; J7120; A4216; J2405

== ENCOUNTER 2021-07-27 09:12 | Outpatient (CLI) | payer OTHER, SELFPAY ==
--- NOTE | 2021-07-27 09:16 | RAD_ITS ---
STUDY: X-RAY - CERVICAL SPINE REASON FOR EXAM: Male, 35 years old. NECK PAIN TECHNIQUE: 5 view(s) of the cervical spine were obtained. COMPARISON: None FINDINGS: Normal anterior atlantoaxial articulation. Normal odontoid process. Normal cervical lordosis. Normal vertebral bodies and endplates. Normal disc space heights. Normal visualized intervertebral neuroforamina. The soft tissue structures are unremarkable. RAD/Cerv Spine 4 or 5 Views IMPRESSION: Normal x-ray examination of the visualized cervical spine. Electronically Signed: Jack Newberry MD at 17:02 EST ,
== END 2021-07-27 23:59 | disposition home or self-care (01) ==
LOC: MTRAD 09:16
PROVIDERS: PCP Family Medicine; Referring Provider Family Medicine; Visit Provider Family Medicine
DX: M54.2 Cervicalgia (principal)
CPT/HCPCS: 72050

== ENCOUNTER → 2022-05-13 | Outpatient (CLI) | payer OTHER, SELFPAY ==
--- NOTE | 2022-05-13 06:36 | MRI_ITS ---
STUDY: MRI LUMBAR SPINE WITH AND WITHOUT CONTRAST REASON FOR EXAM: Male, 36 years old. Lower back pain ,leg pain, weakness TECHNIQUE: Standardized fat and water weighted pulse sequences were obtained in the sagittal and axial planes. 17ml iv Clariscan was administered for the contrast portion of the examination. COMPARISON: MRI lumbar spine without contrast 04/20/2020. FINDINGS: T11-T12: (Sagittal only). Normal endplates. Normal disc height, hydration and morphology. No central canal and the partially included portions of the bilateral intervertebral neural foramina. T12-L1: (Sagittal only). Normal endplates. Normal disc height, hydration and morphology. No ventral extradural defect. Normal central canal and bilateral intervertebral neural foramina. Normal lumbar lordosis. There is no substantial scoliosis. Normal conus medullaris that terminates at the T12-L1 disc space level. L1-2: Normal endplates. Normal disc height, hydration and morphology. Normal bilateral facet joints. Normal central canal and bilateral lateral recesses. Normal bilateral intervertebral neural foramina. L2-3: Normal endplates. Normal disc height, hydration and morphology. Normal bilateral facet joints. Normal central canal and bilateral lateral recesses. Normal bilateral intervertebral neural foramina. L3-4: Normal endplates. Mild disc space height narrowing is unchanged. Normal facet joints. Mild central canal stenosis with an AP canal diameter of 8 mm is unchanged. Prominent dorsal epidural lipomatosis. Normal bilateral lateral recesses. Normal bilateral intervertebral neural foramina. L4-5: Metallic plate with transfixing screws and large metallic implant inside the L4-L5 disc space. Metallic insert in between the L4 and L5 spinous processes. These are causing metallic signal distortion artifacts. Normal central canal and bilateral lateral recesses. Normal bilateral intervertebral neural foramina. L5-S1: Normal endplates. Normal disc height, hydration and morphology. Normal bilateral facet joints. Normal central canal and bilateral lateral recesses. Normal bilateral intervertebral neural foramina. Normal visualized sacral ala. Normal visualized paraspinous soft tissue structures. Following IV contrast administration, there are no abnormally enhancing lesions intradurally and extradurally. MRI/Spine Lumbar W/WO Contrast IMPRESSION: 1. Interval improvement of pronounced central canal stenosis at L4-L5 disc space level following discectomy using metallic plate with transfixing screws, metallic disc implant and a metallic plate inserted in between the L4 and L5 spinous processes. 2. No MRI evidence of new lumbar extruded disc fragment or spinal stenosis. 3. No abnormal enhancing lesions intradurally and extradurally. Electronically Signed: Candido Sawyer MD at 9:12 EST ,
== END | disposition home or self-care (01) ==
PROVIDERS: PCP Family Medicine; Referring Provider Orthopaedic Surgery; Visit Provider Orthopaedic Surgery
DX: M54.50 Low back pain, unspecified (principal)
CPT/HCPCS: 72158; A9575

== ENCOUNTER → 2022-09-27 | Outpatient (CLI) | payer OTHER, SELFPAY ==
--- NOTE | 2022-09-27 07:02 | MRI_ITS ---
STUDY: MRA OF THE HEAD WITHOUT CONTRAST REASON FOR EXAM: Male, 36 years old. MIGRAINE TECHNIQUE: 3-D tnmo-nk-wzmtve (TOF) imaging was performed with MIPs. The study was performed unenhanced. COMPARISON: None. FINDINGS: Normal bilateral petrous carotid arteries. Normal right cavernous carotid artery with a normal supraclinoid bifurcation. Normal left cavernous carotid artery with a normal supraclinoid bifurcation. Normal right A1 segment of the anterior cerebral artery. Normal left A1 segment of the anterior cerebral artery. Normal intact anterior communicating artery (ACOM). Normal bilateral A2 segments of the anterior cerebral arteries. Normal right M1 and M2 segments of the middle cerebral arteries, with a normal M1 bifurcation. Normal left M1 and M2 segments of the middle cerebral arteries, with a normal M1 bifurcation. No visible right posterior communicating artery (PCOM). Normal left posterior communicating artery (PCOM). Normal bilateral vertebral arteries. The right is hypoplastic. Normal basilar artery with a normal basilar bifurcation. The visualized bilateral superior cerebellar (SCA) arteries are normal. Normal bilateral P1, P2 and visualized P3 segments of the posterior cerebral arteries. There is no demonstrated aneurysm of the [place]. There is no major vessel occlusion or hemodynamically significant stenosis. MRI/MRA Head ONLY without Contrast IMPRESSION: Normal MRA of the head Electronically Signed: Candido Sawyer MD at 10:56 EDT ,
--- NOTE | 2022-09-27 07:02 | MRI_ITS ---
EXAM: MR HEAD WITHOUT AND WITH INTRAVENOUS CONTRAST CLINICAL INDICATION: Migraines. TECHNIQUE: Multiplanar and multisequence MR images of the brain were obtained without and with intravenous contrast. CONTRAST: 17 mL of IV Clariscan. COMPARISON: No relevant prior studies available. FINDINGS: BRAIN AND EXTRA-AXIAL SPACES: Tiny enhancing converging intramedullary veins in the left posterior frontal lobe is focal developmental venous anomaly (series 10, image 17; series 5, image 17). Minimal cluster of converging T2 FLAIR hyperintensity in the right frontal lobe white matter without mass effect and without contrast enhancement may represent nonspecific gliosis and prominent perivascular spaces. No abnormal enhancing lesions intra-axially and extra-axially. No intra- or extra-axial hemorrhage. No evidence of acute infarct. There is preservation of the gonzales/white matter interface. Posterior fossa structures are unremarkable. Ventricles are appropriate for age. No hydrocephalus. Basal cisterns are patent. SELLA: Unremarkable. Normal sella turcica, pituitary gland, infundibular stalk, optic chiasm and hypothalamus. AUDITORY SYSTEM: Unremarkable. The internal auditory canals are patent. BONES/JOINTS: Unremarkable. No discrete lytic or blastic abnormalities. SINUSES: Complete opacification of the left maxillary sinus is a combination of large mucus retention cyst and mucosal thickening. Smaller mucous retention cyst in the right maxillary antral floor. Normal remaining paranasal sinuses. MASTOID AIR CELLS: Unremarkable as visualized. Clear. ORBITS: Unremarkable as visualized. Both globes, extraocular muscles, optic nerves and retrobulbar fat appear unremarkable. VASCULATURE: Normal. MRI/Brain W/WO Contrast IMPRESSION: 1. No MRI evidence of acute or subacute ischemic infarct or intracranial mass. 2. No abnormally enhancing lesions intra-axially and extra-axially. 3. Tiny focal DVA in the left posterior frontal lobe convexity white matter. 4. Nonspecific cluster of converging T2 FLAIR hyperintensity in the right frontal lobe white matter without mass effects and no contrast enhancement may represent nonspecific gliosis and prominent perivascular spaces. 5. Large mucus retention cyst and mucosal thickening obliterating the left maxillary sinus and prominent but smaller mucus retention cyst in the floor of the right maxillary sinus. Electronically Signed: Candido Sawyer MD at 11:09 EDT ,
--- NOTE | 2022-09-27 08:23 | RAD_ITS ---
INDICATION: NECK PAIN EXAMINATION/TECHNIQUE: X-RAY - XR Spine Cervical 6 or More Views COMPARISON: None. FINDINGS: VERTEBRAE: Preserved vertebral body height. No fracture. No spondylolisthesis. Preservation of the normal cervical lordosis. No significant facet arthropathy. DISCS: Disc spaces are maintained. NECK SOFT TISSUES: No prevertebral soft tissue widening. LUNG APICES: Clear. RAD/Cerv Spine Obl/Flex/Ext Comp IMPRESSION: No evidence of acute fracture or spondylolisthesis. Electronically Signed: Fernando Sal MD at 19:01 EDT ,
== END | disposition home or self-care (01) ==
PROVIDERS: PCP Family Medicine; Referring Provider Family Medicine; Visit Provider Family Medicine
DX: G43.909 Migraine, unspecified, not intractable, without status migrainosus (principal)
CPT/HCPCS: 70544; 70553; 72052; A9575

== ENCOUNTER → 2022-11-03 | Outpatient (CLI) | payer OTHER, SELFPAY ==
--- NOTE | 2022-11-03 12:44 | CT_ITS ---
STUDY: CT MAXILLOFACIAL SINUSES REASON FOR EXAM: Male, 36 years old. SINUSITIS RADIATION DOSAGE (If Supplied By Facility): CTDIvol = ( 33.06 ) mGy, DLP = ( 821.45 ) mGycm TECHNIQUE: The patient was scanned in a multi detector CT scanner. High resolution axial imaging was performed without the administration of intravenous contrast material. Sagittal and coronal images were reconstructed. Individualized dose optimization techniques were used for this CT. COMPARISON: None. FINDINGS: FRONTAL SINUSES: Normal aeration, without mucosal inflammatory disease. ETHMOIDAL SINUSES: Normal aeration, without mucosal inflammatory disease. MAXILLARY SINUSES: There is opacification of the left maxillary sinus. Soft tissue prominence is seen in the left posteromedial complex causing obliteration. 1.6 cm x 1.6 cm polyp or retention cyst at the base of the right maxillary sinus. SPHENOIDAL SINUSES: Normal aeration, without mucosal inflammatory disease. Normal bilateral middle turbinates. Normal bilateral inferior turbinates. Normal midline nasal septum. There is patency of the bilateral nasal airways. The visualized osseous structures are normal. The visualized bilateral orbital contents are normal. CT/Sinus/Facial Bone IMPRESSION: Opacification of left maxillary sinus. 1.6 cm x 1.6 on a polyp or retention cyst at the base of the right maxillary sinus. Electronically Signed: Minor Adkins MD at 13:04 EDT ,
== END | disposition home or self-care (01) ==
LOC: CT 12:41
PROVIDERS: PCP Family Medicine; Referring Provider Otolaryngology Otolaryngology/Facial Plastic Surgery; Visit Provider Otolaryngology Otolaryngology/Facial Plastic Surgery
DX: J32.8 Other chronic sinusitis (principal)
CPT/HCPCS: 70486

== ENCOUNTER → 2023-05-09 | Outpatient (CLI) | payer OTHER, SELFPAY ==
--- NOTE | 2023-05-09 08:50 | ETH_PTH ---
PATIENT: SARY QUEEN LOC: [facility] U#:[id number] AGE/SX: 37/M ROOM: RE05/09/[address]: Dr. Giovany Moore MD : 1985 BED: DIS: 05/09/2023 SPEC #: [id number] RECD: 05/10/23 07:50 STATUS: ZOILA CATARINO #: [id number] TAINA: 05/09/23 08:[address]: Giovany Moore DEPT: SURGICAL PATHOLOGY RECD BY: Rosa Perera ENTERED: 05/10/23 07:50 SP TYPE: ETH TISS OTHR DR: Dr. Fernadno Carranza MD [facility] Tissues: Ethmoid sinus, NOS Procedures: Decalcification bone/plaque Surgery Specimen Level IV HEADER OPERATION: Left maxillary antrostomy with tissue removal PRE-OP DIAGNOSIS: Chronic maxillary sinusitis TISSUE SUBMITTED: Right maxillary content MICROSCOPIC DIAGNOSIS Right maxillary contents: Fragments of respiratory mucosa with chronic inflammation and bone. SHOLA:kellee 05/16/2023 MICROSCOPIC DESCRIPTION Slides are reviewed. GROSS DESCRIPTION Received in fixative is one container labeled with the patient's name and designated right maxillary sinus. The specimen consists of multiple pieces of narayanan soft tissue mixed with fragments of bone that in aggregate measure 1.0 x 1.0 x 0.1 cm. The specimen is totally submitted in one cassette after decalcification. / SHOLA:kellee 05/10/2023 TC:3 CPT: 89944, 58064
== END | disposition home or self-care (01) ==
LOC: LABSPEC 15:12
PROVIDERS: PCP Family Medicine; Referring Provider Otolaryngology; Visit Provider Otolaryngology
DX: J32.0 Chronic maxillary sinusitis (principal)
CPT/HCPCS: 88305; 88311

== ENCOUNTER 2023-10-24 08:00 | Outpatient (RCR) | payer OTHER, SELFPAY ==
--- NOTE | 2023-10-24 10:15 | BH.SGPN.GN ---
Behaviors/Verbalizations/Mental Status: []Eye contact is good. Motor activity is appropriate. Appearance is casual. Speech is Appropriate. Mood is anxious. Affect is congruent. Thoughts are linear and logical. No evidence of psychosis. Client Response/Progress/Benefit: [] Pt was actively engaged, providing input at times, and taking notes throughout session. Connected with the topic of pitfalls and listened to group discussion on internal and external barriers that prevent from choosing a healthier path to mental wellness. Group worked together to identify examples of personal internal pitfalls. Pt?s first day of IOP tx, so he was quiet. Pt benefited from group as pt learned to better identify and normalize potential barriers to improving mental health symptoms. Pt also gained awareness of the difference between external triggers and self-sabotaging behaviors. Will continue in IOP to prevent decompensation, improve daily functioning, and gain healthy coping skills. Narrative Note: []
--- NOTE | 2023-10-24 11:15 | BH.SGPN.GN ---
Behaviors/Verbalizations/Mental Status: []Pt alert and oriented, casually dressed and groomed. Eye contact good. Motor activity appropriate. Speech within normal limits. Affect congruent, mood anxious. Thoughts linear, logical, no signs of hallucinations or delusions. Client Response/Progress/Benefit: [] Pt receptive of session, engaged throughout AEB actively contributing and listening to discussion, as well as taking notes. Pt participated in the experiential activity and processed with group how their emotions, perspective, and reactions positively and negatively impacted the outcome. Pt identified pitfalls they struggle with and shared wanting to work on pitfall of fear of not meeting own expectations by practicing tracking daily accomplishments and self-care with supports. Benefited from identifying personal pitfalls and strategies to overcome these pitfalls. Will continue IOP tx to prevent decompensation, improve daily functioning, and promote application of healthy coping skills. Narrative Note: []
--- NOTE | 2023-10-25 10:10 | BH.NA ---
Physical Data Vital Signs Pulse Rate: 72 Blood Pressure: 136/89 Height/Weight Height: 1.8 m Weight:: 80.739 kg Weight in Pounds: 178.0 lbs Current Medication Compliance Medication Compliance Do you take your medication as prescribed?: Yes Nutritional History Appetite Nutritional Instructions: Describe your appetite:: Fair Additional nutritional information:: Client states he has lost over 10lbs unintentionally over the last few months. Client states he is on Topamax which may be lowering his appetite, but also states he knows his appetite is decreased because of depression. Functional Assessment Sleep Pattern Describe any problems with sleeping: Client states his sleep has been poor, stating he has been sleeping 5-6 hours or less per night. Sensory/Communication Assess Communication Problems Do you have difficulty understanding what people are saying?: No Medical Problems/History Neurological Conditions Neurological: Other (See comments) (migraines- sees neurology regularly) Musculoskeletal Conditions Musculoskeletal: Other (See comments) (degenerative disc disease, hx of broken pelvis) Pain Assessment Do you have acute or chronic pain?: Yes (back pain- gets steroid injections, has flurbiprofen to take) Family History Family History Father Hypertension Surgical History Surgical History Have you had any surgeries? If so, list type and date:: Yes (elbow, back ) Substance Abuse Substance Abuse Please describe substance abuse in the last 30 days:: Client states about 2 years ago, he had a 6 month period where he used alcohol heavily but states he does not now. Client states he has been using chewing tobacco for about 2 years. Client states he started using marijuana around the age of 29, and states for a 5-6 year period he was using marijuana and daps heavily for his back pain and also depression. Client states he stopped using about 2 years ago, but had a relapse this June where he used heavily again for about 1 month but has not used marijuana since July 2023. Client states he drinks 1-2 cups of coffee per day. Mental Status Summary Mental Status Significant Findings/Observations on Appearance and Mood:: Client is alert and oriented x 4. Client is casually groomed with good hygiene. Client is cooperative with assessment. Client makes good eye contact. Client's voice has normal rate and volume. Client has an appropriate affect, was tearful at times when talking about his dog dying. Client makes logical associations and has normal processing. Client denies delusions/hallucinations. Client reports passive thoughts of frequently (I would be better off if I wasn't around) but denies any suicidal intent or plan, stating his and kids are a strong protective factor. Suicide Assessment Suicidal Ideation Are you currently or have you been suicidal in the past?: Yes Suicidal Intentional Rating Scale (SIRS): Suicidal thoughts (past) (passive thoughts of frequently, denies intent/plan) Physician Notification Past Psychiatric History MH Treatment Hx Past Psychiatric Medications:: Client was on Prozac and Wellbutrin a couple of years ago and has been back on them a few months Age of first mental health symptoms: Client states he has had depression for probably 15 years or more, but states he only started taking medication for depression about 3 years ago. Describe (age, circumstance, etc) any past hospitalizations: None. Current providers for mental health treatment (counselor, psychiatrist, pillowcase cutter, etc.): Kevin and [facility] for therapy Fall Risk Assessment Age Age: Less than 60 Mental Status Mental Status: Willing & able to ask for assistance when needed Physical Status Physical Status: No problems Impairments Impairments: None Elimination Elimination: Continent AND independent Gait or Balance Gait or Balance: Walks independently Hx of Falls History of falls in the past 6 months: No known history Medications/Substances Psychotropics:: Antidepressants Medications/substances used within the past 24 hours or ordered to administer: 1-2 of the medications/substances listed above Total Score Total Points:: 1 RN Summary of Impressions Impressions Recommendations Impressions: Psychiatric Issues: major depressive disorder, recurrent, severe. Generalized anxiety disorder. Level of Care How do the client's current symptoms and functional deficits support need for this level of care?: Client was referred to [facility] by outpatient therapy for increased anxiety, depression, and thoughts of . Client states he has felt his depression has been pretty severe for the last year or more, but states he thinks it really got bad when his dog 1 year ago. Client states he was very close with his dog and he is upset with himself for not being home when the dog passed. 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 Client states his family just moved to a new house and he feels he should be excited, but he isn't. Client states for the past several months he has decreased energy, is not doing ADL's as he usually did, and has been having occasional panic attacks. Client reports passive thoughts of frequently, but denies suicidal plan/intent stating his and kids are a strong protective factor. IOP will promote gains and prevent further decompensation while providing social support and skills training.
[2023-10-25 10:46] VITALS: BP 136/89; PULSE 72
--- NOTE | 2023-10-25 11:57 | BH.PSY.EVA_ITS ---
Psychiatric Evaluation Initial Evaluation Initial Evaluation: Chief Complaint: I am out of gas and broken. History of Present Illness: [] The patient is a 37-year-old male with a long history of depression and anxiety who was referred to the [facility] behavioral health IOP by his new outpatient counselor after the first appointment due to his worsening anxiety and panic attacks. The patient currently lives with his of 12 years and their 4 children ages 4, 6, 8 and 10 respectively. Patient states that marriage is doing okay but he feels that over time they are growing apart due to being busy with the kids and other commitments. 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 He has cut down on the trading of futures but is still doing the farm and his insurance business. His sometimes helps him with the insurance business. His symptoms have been worsening for the past year and he is feeling very overwhelmed and having passive thoughts of . He is having a hard time fu nctioning at the high level that he expects of himself. He feels completely burned out. He has had anxiety most of my life but this has become more severe lately. According to his the symptoms got worse after his dog 1 year ago on . They built a new house on a farm that they look forward to and they recently moved in 1 month ago but the patient does not enjoy the house and feels bad that the dog could not join the house who . For primary support he has nobody but sometimes his but not really because she does not like to talk either. Patient states his feet if he is stressed at all lately he gets very agitated and feels very nervous. He is drinking only coffee in the morning 1 or 2 cups if that. He endorses sadness, hopelessness, worthlessness, low motivation, apathy, anhedonia, biological disruption of appetite with loss of 12 pounds in the past 3 months (which may be due to Topamax). He also endorses decreased sleep to anywhere from 3 to 7 hours of sleep at night and he wakes up during the night and also wakes up early. Energy is low and concentration is decreased. He endorses guilt, passive thoughts of , constant worrying and panic attacks once a week. He states that he was having fleeting, passive suicidal ideation daily but it this has decreased since he made the decision to do the IOP. He states that he would never kill himself because his children and his need him and they are protective against suicide. He denies any plan for suicide. He also denies homicidal ideation, hallucinations, delusions or symptoms of salma ever. Current Psychiatric Medications: [] Prozac 40 mg p.o. daily (back on it for 6 to 8 weeks after being off it for 1 year); Wellbutrin XL 150 mg p.o. every morning (x 1 month); topiramate 50 mg p.o. daily (x 4 5 months for migraine headaches and this has helped decrease them significantly). Past Psychiatric History: [] No psych admits ever. No suicide attempts ever. He has been depressed and anxious since he was 7 or 9 years old but took first took medications for this at age 31. He has taken Prozac, Wellbutrin and maybe 1 other med in his lifetime. He gets his meds from his primary care doctor Dr. Samson. He saw a new counselor 1 time and was referred here to the IOP. Substance Use History: [] The patient first began using marijuana at age 29 to help with back pain. He used daily for 3 or 4 years but then quit for 18 months. Then he started drinking excess alcohol but he stopped doing that 2 years ago and now he only has a rare or occasional 1 beer and does not like alcohol. He then began using marijuana again in June 2023 daily for about 6 weeks but has been sober from marijuana for the past 2 months. He now chews tobacco for about 2 years. He is a non-smoker and does not vape. No other drug use ever. He dislikes taking p.o. opiates for pain and took very little even with back surgery. Allergies: [] No known allergies Medications: [] Psych meds as dictated above plus Nurtec for migraine headaches and flurbiprofen which is a muscle relaxant once in the morning to help with neck tension that triggers migraines. Past Medical History: [] He had back fusion surgery in 2019 for degenerative disc disease; migraine headaches now decreased to 2 times a month only due to Topamax treatment. History of elbow surgery but no other illnesses or surgeries. Family Psychiatric History: [] Mother is 78 years old and father is 79 years old. His mother has a lifelong history of anorexia nervosa and depression and anxiety. He has a few brothers with depression. He has a 10-year-old son with anxiety and ADHD. No completed suicides in the family. No substance issues in the family except possibly some distant cousins. Personal/Social History: [] Patient was born and raised in [place] and describes his childhood as as my dad went bankrupt on his farm and we did not have much money. His grandfather help them financially but he disapproved of the patient's father and the grandfather was rather cold emotionally. The patient's mother was loving but she had 9 kids. His father was around but was not emotive or really nurturing. The patient is a middle child and has 7 brothers and 1 sister total. His parents when the patient was 14 years old and the kids stayed with the mother but they saw their dad every few days although he said he has never been very close to his father. He was a very good student in school and he denies verbal, physical or sexual abuse ever. His brothers all thought physically but he states that there was no abuse ever. He graduated high school went to [employer] where he got a bachelor's of science in environmental science and has worked since various jobs concluding with the numerous jobs he has listed in the present illness. Is very important to the patient that he feels successful by being successful also financially. Also he states that he does not like to take any help from anyone even though his mother is a trust fund baby and help some of his other siblings but he refuses to take any financial help. He got at age 25 and it has lasted 12 years his is. His is 38 years old and he feels that there is little bit drifting apart due to his anxiety and depression and the fact that they have somebody kids and all their activities. His children are healthy and doing well. He was working also as a [employer] until 6 weeks ago and they moved out [place] the [place] so he resigned. Legal History: [] No arrests. Has over the road driver's license. No DUIs. Review of Systems: [] Migraine headaches and some still nerve pain in his back. Review of systems otherwise negative except as noted in present illness. Vital Signs: [] Vital signs reviewed in the nurses notes and updated and the patient is deemed medically able to participate in the IOP. Mental Status Examination: [] The patient is a 37-year-old male who is thin and fit and appears normal or younger than stated age. He is ambulatory with a normal gait and is casually dressed and groomed with good hygiene. He has no psychomotor agitation or retardation. Eye contact is good and speech is normal rate and rhythm and fluent with no pressure. Mood is depressed and anxious. Affect is mildly constricted. Thought process is goal-directed and organized but the patient is somewhat overly inclusive but is easily redirected. Thought content: There is evidence of passive thoughts of and recent fleeting, passive suicidal ideation. There is no evidence of active suicidal ideation, plan for suicide, homicidal ideation, hallucinations, delusions or symptoms of salma ever. Reality testing is intact. Intelligence is above average. Judgment is intact. Insight: Fair. Impulsivity: Low. Diagnoses: [] 1. Major depressive disorder, recurrent, severe without psychosis 2. Generalized anxiety disorder 3. Migraine headaches 4. Primary support and work issues Plan: [] The patient will start the IOP in behavioral health at [facility] as the structure, support, education and group therapy will hopefully prevent worsening of the patient's symptoms which might require hospitalization. He felt safe during the interview and if it anytime he does not feel safe he will let us know or go to the emergency room. The risk, option s, possible complications and side effects of the medications were discussed with the patient and he understands accepts these. The patient agrees to try Remeron (15 mg p.o. nightly) as it may help with his insomnia, decreased appetite, anxiety and depression. He understands weight gain as a side effect but because he is on the Topamax and is a thin active male I doubt weight gain will be an issue. The patient agrees to stay sober from marijuana and any other drug use. He will continue to follow-up with his outpatient providers and I will see the patient in follow-up in 2 weeks. A TSH and vitamin D were also ordered and all other medications stayed the same.
--- NOTE | 2023-10-25 12:10 | BH.DR.ITP ---
Initial Treatment Plan Patient Information Visit Information: ADMISSION DATE: EXPECTED LOS: 4-6 weeks Problems/Symptoms Problem #1:: Depression Symptom:: Sadness, hopelessness, low energy, biological disruption of appetite and sleep, decreased concentration, guilt, anhedonia, passive thoughts of , recent passive fleeting suicidal ideation Problem #2:: Anxiety Symptom:: Worry, rumination, panic attacks, avoidance
--- NOTE | 2023-10-25 13:41 | BH.MDN ---
Multi-Disciplinary Note Note 60-min Individual: Time Started:: 11:00 Date: 10/25/23 Time Stopped:: 12:00
--- NOTE | 2023-10-25 13:42 | BH.PSA_ITS ---
Source of Information Presenting Problems/Circumstances Problems, Referral Source, Mental Status, Client: The patient is a 37-year-old male with a long history of depression and anxiety who was referred to the [facility] behavioral health IOP by his new outpatient counselor after the first appointment due to his worsening anxiety and panic attacks. 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 He has cut down on trading of futures but is still doing the farm and his insurance business. His sometimes helps him with the insurance business. His symptoms have been worsening for the past year and he is feeling very overwhelmed and having passive thoughts of . He is having a hard time functioning at the high level that he expects of himself. He feels completely burned out. He endorses sadness, hopelessness, worthlessness, low motivation, apathy, anhedonia, biological disruption of appetite with loss of 12 pounds in the past 3 months (which may be due to Topamax). He endorses guilt, passive thoughts of , constant worrying and panic attacks once a week. Past Psychiatric History MH Treatment Hx Treatment History: No psych admits ever. No suicide attempts ever. He has been depressed and anxious since he was 7 or 9 years old but took first took medications for this at age 31. He saw a new counselor 1 time at [facility] and was referred here to the IOP. Development & Family of Origin Childhood Significant Childhood Events: Patient was born and raised in [place] and describes his childhood as as my dad went bankrupt on his farm and we did not have much money. His grandfather help them financially but he disapproved of the patient's father and the grandfather was rather cold emotionally. The patient's mother was loving but she had 9 kids. His father was around but was not emotive or really nurturing. Family Who currently lives in your home?: Lives with and 4 children. Describe family composition:: The patient is a middle child and has 7 brothers and 1 sister total. His parents when the patient was 14 years old and the kids stayed with the mother but they saw their dad every few days although he said he has never been very close to his father. He got at age 25 and it has lasted 12 years his is. His is 38 years old and he feels that there is little bit drifting apart due to his anxiety and depression and the fact that they have so many kids and all their activities. He has 4 children ages 4, 6, 8 and 10. His children are healthy and doing well. Family History Family History Father Hypertension Family Hx of Psychiatric or AOD Problems: His mother has a lifelong history of anorexia nervosa and depression and anxiety. He has a few brothers with depression. He has a 10-year-old son with anxiety and ADHD. No completed suicides in the family. No substance issues in the family except possibly some distant cousins. Ethnicity Sexuality Sexual Orientation: Heterosexual Mental Status Memory Recent Memory: Fair Remote Memory: Fair Concentration Concentration: Fair Eye Contact Eye Contact: Fair Speech Speech: Rapid Thought Process Thought Process: Logical and Ruminations Insight: Fair Judgment: Fair Behavior: Anxious Orientation Orientation: Time, Person, Place and Situation Appearance Appearance: Appropriate Mood Mood: Anxious Affect Affect: Alert Suicide Assessment Suicidal Ideation Have you ever felt like hurting yourself?: Yes Please explain:: Passive thoughts of . Denies active suicidal thoughts, plan or intention to date. Suicidal Intentional Rating Scale (SIRS): Suicidal thoughts (past) Physician Notification Violent Behavior/Abuse History Homicidal Ideation Do you have any homicidal thoughts? If so, explain:: No Abuse Have you ever been abused?: No Life Events Are there any other significant life events?: (Loss of dog one year ago has been significant loss for client.) Safety Do you ever feel threatened in your home? If yes, describe:: No Adult Social History Age 17 to Present Describe your current support system:: Pt reports he doesn't feel like he can open up to anyone. Substance Use Specific Drugs What specific drugs have you used?: The patient first began using marijuana at age 29 to help with back pain. He used daily for 3 or 4 years but then quit for 18 months. Then he started drinking excess alcohol but he stopped doing that 2 years ago and now he only has a rare or occasional 1 beer and does not like alcohol. He then began using marijuana again in June 2023 daily for about 6 weeks but has been sober from marijuana for the past 2 months. He now chews tobacco for about 2 years. He is a non-smoker and does not vape. No other drug use ever. He dislikes taking p.o. opiates for pain and took very little even with back surgery. 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 Service Service Have you ever been in the ?: No Legal History Records Have you had any past legal charges?: No Do you have any current legal charges?: No Have you ever been incarcerated? If yes, describe:: No Court Orders Have you had any past court orders for psychiatric treatment?: No Do you have a present court order for psychiatric treatment?: No Problem Checklist Current Problem Areas Problem List: Nutritional/Eating pattern changes (loss of appetite), Depressed mood/sad, Bereavement (loss of dog one year ago), Anxiety, Inattention and Additional psychosocial stressors (overworking) Creative Recruiter's Assessment Client's Needs What are the client's feelings about the program?: Client states he is feeling hopeful about his future since starting IOP. What are the client's goals?: Client would like to learn how to manage his anxiety more effectively, be able to improve daily functioning, and be able to keep up with his work. Diagnoses Diagnoses Diagnosis #1:: Major depressive disorder, recurrent, severe without psychosis F33.2 Diagnosis #2:: Generalized Anxiety Disorder Interpretive Summary Interpretive Summary Interpretive Summary: The patient is a 37-year-old male with a long history of depression and anxiety who was referred to the [facility] behavioral health IOP by his new outpatient counselor after the first appointment due to his worsening anxiety and panic attacks. The patient currently lives with his of 12 years and their 4 children ages 4, 6, 8 and 10 respectively. Patient states that marriage is doing okay but he feels that over time they are growing apart due to being busy with the kids and other commitments. 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 He has cut down on the trading of futures but is still doing the farm and his insurance business. His sometimes helps him with the insurance business. His symptoms have been worsening for the past year and he is feeling very overwhelmed and having passive thoughts of . He is having a hard time functioning at the high level that he expects of himself. He feels completely burned out. He has had anxiety most of my life but this has become more severe lately. According to his the symptoms got worse after his dog 1 year ago on . They built a new house on a farm that they look forward to and they rec ently moved in 1 month ago but the patient does not enjoy the house and feels bad that the dog could not join the house who . For primary support he has nobody but sometimes his but not really because she does not like to talk either. Patient states his feet if he is stressed at all lately he gets very agitated and feels very nervous. He is drinking only coffee in the morning 1 or 2 cups if that. He endorses sadness, hopelessness, worthlessness, low motivation, apathy, anhedonia, biological disruption of appetite with loss of 12 pounds in the past 3 months (which may be due to Topamax). He also endorses decreased sleep to anywhere from 3 to 7 hours of sleep at night and he wakes up during the night and also wakes up early. Energy is low and concentration is decreased. He endorses guilt, passive thoughts of , constant worrying and panic attacks once a week. He states that he was having fleeting, passive suicidal ideation daily but it this has decreased since he made the decision to do the IOP. He states that he would never kill himself because his children and his need him and they are protective against suicide. He denies any plan for suicide. He also denies homicidal ideation, hallucinations, delusions or symptoms of salma ever. Treatment Plan Recommendations Recommendations Guidelines Recommendations:: The patient will start the IOP in behavioral health at [facility] as the structure, support, education and group therapy will hopefully prevent worsening of the patient's symptoms which might require hospitalization.
--- NOTE | 2023-10-25 13:42 | BH.MTP_ITS ---
Master Treatment Plan Patient Information Program Physician:: Dr. Youisf Primary Therapist:: [place], [facility] Psychiatric Diagnoses Psychiatric Diagnoses:: 1. Major depressive disorder, recurrent, severe without psychosis 2. Generalized anxiety disorder Diagnosis Code(s):: F33.2 Estimated LOS Estimated LOS (in weeks):: 6 Problem/Goal #1 Problem/Goal #1 Stated Goal:: Client will decrease depressive symptoms, hopeless, and apathy due to Major Depressive Disorder through Intensive Outpatient Program.? Description of Barriers: Potential barriers include: high expectations, difficulty taking a break from work, distorted thoughts, negative thoughts, and anxious thoughts. Functional Impact: The patient is a 37-year-old male with a long history of depression and anxiety who was referred to the [facility] behavioral health IOP by his new outpatient counselor after the first appointment due to his worsening anxiety and panic attacks. His symptoms have been worsening for the past year and he is feeling very overwhelmed and having passive thoughts of . He is having a hard time functioning at the high level that he expects of himself. He feels completely burned out. He has had anxiety most of my life but this has become more severe lately. He endorses sadness, hopelessness, worthlessness, low motivation, apathy, anhedonia. He states that he was having fleeting, passive suicidal ideation daily but it this has decreased since he made the decision to do the IOP. He states that he would never kill himself because his children and his need him and they are protective against suicide. He denies any plan for suicide. Objectives Objective #1: Stated Objective: Client will learn and utilize 2-3 healthy coping strategies to manage depressive symptoms. Interventions: Therapist will utilize CBT techniques to assist client with understanding the connection between thoughts, feelings and behaviors. Education will be provided on behavioral activation. Therapist will assist client in learning internal coping strategies to manage depressive symptoms, along with helping client identify triggers. Discharge Criteria: Client will have achieved this goal when can verbalize and has practiced at least 2 healthy coping strategies that successfully manage depressive symptoms. Target Date: 12/06/23 Review Date: 11/22/23 Objective #2: Stated Objective: Client will identify and replace 2-3 negative thinking patterns that reinforce depressive symptoms. Interventions: Therapist will assist client in developing an awareness of the cognitive messages that reinforce depressive thinking. Therapist will also assist client in challenging negative thinking patterns. Discharge Criteria: Client will have achieved this goal when can identify at least 2 negative thinking patterns, replace negative thinking with more positive, and affirmative messages. Target Date: 12/06/23 Review Date: 11/22/23 Problem/Goal #2 Problem/Goal #2 Stated Goal:: Reduce overall frequency, intensity, and duration of the anxiety so that daily functioning is not impaired. Description of Barriers: Potential barriers include: high expectations, difficulty taking a break from work, distorted thoughts, negative thoughts, and anxious thoughts. Functional Impact: The patient is a 37-year-old male with a long history of depression and anxiety who was referred to the [facility] behavioral health IOP by his new outpatient counselor after the first appointment due to his worsening anxiety and panic attacks. His symptoms have been worsening for the past year and he is feeling very overwhelmed and having passive thoughts of . He is having a hard time functioning at the high level that he expects of himself. He feels completely burned out. He has had anxiety most of my life but this has become more severe lately. He endorses sadness, hopelessness, worthlessness, low motivation, apathy, anhedonia. He states that he was having fleeting, passive suicidal ideation daily but it this has decreased since he made the decision to do the IOP. He states that he would never kill himself because his children and his need him and they are protective against suicide. He denies any plan for suicide. Objectives Objective #1: Stated Objective: Client will learn and implement 2-3 calming skills to reduce overall anxiety and manage anxiety symptoms. Interventions: Therapist and group sessions will help client identify physiological warning signs of anxiety, increase awareness of thoughts that increase anxiety, and identify behaviors that reinforce anxious symptoms. Group and individual counseling will teach client calming skills to help manage anxious symptoms. Discharge Criteria: Client will have achieved this goal when can verbalize at least 2 calming skills and reports skills successfully help reduce anxious symptoms. Target Date: 12/06/23 Review Date: 11/22/23 Objective #2: Stated Objective: Client will identify 2-3 anxiety triggers and 2 coping skills to use when feeling anxious. Interventions: Therapist will assist client in exploring what triggers anxiety and teach client coping strategies to effectively manage anxiety symptoms. Discharge Criteria: Client will have met this goal when can identify at least 2 triggers to anxiety and verbalize two healthy ways to cope with feelings of anxiety. Target Date: 12/06/23 Review Date: 11/22/23
--- NOTE | 2023-10-27 09:05 | BH.SGPN.GN ---
Behaviors/Verbalizations/Mental Status: [] Eye contact good. Motor activity appropriate. Speech within normal limits. Affect congruent, mood content and anxious. Thoughts linear, logical, no signs of hallucinations or delusions. Reviewed client?s symptom tracker, denies SI, plan, or intent as of 10/27/2023. Client Response/Progress/Benefit: [] Client receptive of session, attentive and willing to process with group. Identified mental health ?wins? today as challenging himself to stop working at 4pm yesterday and spend time watching a show with his children. Noted this was very uncomfortable for him due to extremely high expectations and beliefs he must always be doing something productive. Noted taking a nap yesterday as well which he found to be refreshing. Shared an additional win was recognizing he no longer wants to live the way he has been and taking the initiative to seek out therapy on his own. Reports that although it is a win, beginning to address his anxiety and perfectionism is a major stressor for him as it is all new. Receptive of and appeared to benefit from supportive feedback and suggestions from the group. Recommended continued IOP tx to improve mood stability, promote consistency of skill application, challenge thought distortions, and prevent decompensation. Narrative Note: []
--- NOTE | 2023-10-27 11:15 | BH.SGPN.GN ---
Behaviors/Verbalizations/Mental Status: []Client alert and oriented, casually dressed and fairly groomed. Eye contact good. Motor activity appropriate. Speech within normal limits. Affect congruent, mood depressed, anxious. Thoughts linear, logical, no signs of hallucinations or delusions. Client Response/Progress/Benefit: []Pt was engaged throughout AEB contributing to group discussion and self-reflection. Group finished processing cues to anger worksheet. Pt contributed as group brainstormed healthy coping skills for better managing anger which included: music, walking/exercise, taking a break, reflection, and journaling. Attentive in discussion about identifying personal anger cycle. Stated will work on stepping back from situation and communicating as skills/strategies to prevent unhealthy anger response. Pt appeared to benefit from identifying different techniques to manage anger as well as gaining awareness of potential consequences of unmanaged anger. Pt to continue IOP to
== END 2023-10-27 23:59 ==
LOC: BHIOP 08:00
PROVIDERS: PCP Family Medicine; Referring Provider Psychiatry & Neurology Psychiatry; Visit Provider Psychiatry & Neurology Psychiatry
DX: F33.2 Major depressive disorder, recurrent severe without psychotic features (principal); F41.1 Generalized anxiety disorder; G43.909 Migraine, unspecified, not intractable, without status migrainosus; Z79.899 Other long term (current) drug therapy
CPT/HCPCS: S9480; 90837; 90853

== ENCOUNTER 2023-10-30 08:12 | Outpatient (RCR) | payer OTHER, SELFPAY ==
--- NOTE | 2023-10-27 10:10 | BH.SGPN.GN ---
Behaviors/Verbalizations/Mental Status: [] Eye contact is good. Motor activity is appropriate. Appearance is casual. Speech is Appropriate. Mood is anxious. Affect is full. Thoughts are linear and logical. No evidence of psychosis Client Response/Progress/Benefit: [] Pt responded well to session AEB contributing to small group discussion, taking notes, and listening attentively to others. Participated during interactive discussion in which pt and peers defined anger and discussed the benefits of managed anger and anger as a secondary emotion. Group identified several emotions which can drive anger which included; pain, confusion, jealously, regret, loss, embarrassment, and exhaustion. Appeared to benefit from increased knowledge of the anger cycle as well as personal triggers. Will continue IOP to prevent decompensation, increase healthy coping skills, and stabilize mood. Narrative Note: []
[2023-10-28 02:42] VITALS: BP 136/89; PULSE 72
--- NOTE | 2023-10-30 09:05 | BH.SGPN.GN ---
Behaviors/Verbalizations/Mental Status: [] Eye contact is good. Motor activity is appropriate. Appearance is casual. Speech is Appropriate. Mood is anxious. Affect is full. Thoughts are linear and logical. No evidence of psychosis. Reviewed daily check in sheet and no reports of suicidal ideations or intent. Client Response/Progress/Benefit: [] Pt participated at times during the group discussion. Attentive. Daily symptom tracker notes 2/5 for irritability and 1/5 for depression. Emotion for today is relieved. States I feel good. I'm starting to get my drive back. Reports more engaged with his family and work. I have just been in a hole for 6 months. Utilizing mindfulness skills and is living more in the moment. Progress noted. Beneifted from group support, encouragment, and feedback. Will continue in IOP to prevent decompensation, increase healthy coping, and improve functioning. Narrative Note: []
--- NOTE | 2023-10-30 10:15 | BH.SGPN.GN ---
Behaviors/Verbalizations/Mental Status: []Pt alert and oriented, casually dressed and groomed. Eye contact good. Motor activity appropriate. Speech within normal limits. Affect congruent, mood content, anxious. Thoughts linear, logical, no signs of hallucinations or delusions. Client Response/Progress/Benefit: [] Pt connected with topic of anxiety and participated throughout, providing input and taking notes. Participated throughout interactive discussion defining anxiety and identifying cognitive and physiological symptoms of anxiety. Group discussed how anxiety can prevent them from trying new things. Pt identified their physical signs of anxiety as: muscle tension, racing thoughts, and restlessness. Pt identified safety behaviors as: over working, reassurance seeking. Benefited from increased awareness and insight on anxiety and its impact. Pt will continue IOP tx to prevent decompensation, improve daily functioning, and increase self-care balance. Narrative Note: []
--- NOTE | 2023-10-30 11:15 | BH.SGPN.GN ---
Behaviors/Verbalizations/Mental Status: []Pt alert and oriented, neatly dressed and groomed. Eye contact good. Motor activity appropriate. Speech within normal limits. Affect congruent, mood calm. Thoughts linear, logical, no signs of hallucinations or delusions. Client Response/Progress/Benefit: [] Pt was an active participant AEB pt providing input and listening attentively to peers. Attentive during psychoeducation on mindfulness coping skills and their impact on reducing anxiety and improving overall mental health wellness. Group was able to identify self-soothing and mind-based coping skills which included: 5-senses, meditation, deep breathing, TIPP, thought challenging, and progressive muscle relaxation. Pt also participated with peers in practicing mindfulness skills in session. Pt would like to work on talking through his anxiety and using delay, distract, decide to help manage anxiety. Appeared to benefit from increasing repertoire of anxiety reduction skills. Pt will continue in IOP tx to prevent decompensation, improve daily functioning, and improve self-care practices. ?? Narrative Note: []
--- NOTE | 2023-11-01 10:15 | BH.SGPN.GN ---
Behaviors/Verbalizations/Mental Status: [] Eye contact is good. Motor activity is appropriate. Appearance is casual. Speech is Appropriate. Mood is anxious. Affect is congruent. Thoughts are linear and logical. No evidence of psychosis. Client Response/Progress/Benefit: [] Pt receptive of session, actively engaged throughout AEB taking notes, providing input, and contributing in small group discussion. Appeared to connect with group topic of automatic thoughts and cognitive distortions and the impact of thought patterns on mental health, coping behaviors, and relationships. This particular group is very heavy on psychoeducation and pt appeared to connect with distortions and how they can impact functioning. Identified struggling with disqualifying the positives and overgeneralization distortions. Pt appeared to benefit from gaining insight on distorted thinking patterns and how this impacts overall mental health. Will continue IOP to stabilize mood, improve ability to challenge unrealistic expectations, and prevent decompensation. Narrative Note: []
--- NOTE | 2023-11-01 11:15 | BH.SGPN.GN ---
Behaviors/Verbalizations/Mental Status: []Pt alert and oriented, casually dressed and groomed. Eye contact good. Motor activity appropriate. Speech within normal limits. Affect congruent, mood anxious. Thoughts linear, logical, no signs of hallucinations or delusions Client Response/Progress/Benefit: [] Pt was an active participant during group discussion. Pt was placed in a smaller group and participated in combatting example distortions with peers. Pt was engaged in the smaller group, participated in group interactions to brainstorm answers, and appeared to be comprehending cognitive distortions. Attentive and appeared to connect with psychoeducation about different strategies to reframe/challenge distortions. Engaged in small group practice of challenging cognitive distortion examples. Benefited from gaining further insight and awareness of cognitive distortions as well as practicing ways to reframe and challenge thoughts. Will continue in IOP to improve ability to relax, decrease anxious thoughts, and prevent decompensation.
--- NOTE | 2023-11-01 15:10 | BH.MDN ---
Multi-Disciplinary Note Note 60-min Individual: Time Started:: 09:00 Date: 11/01/23 Time Stopped:: 09:59
--- NOTE | 2023-11-06 09:00 | BH.SGPN.GN ---
Behaviors/Verbalizations/Mental Status: [] Client alert and oriented, casual appearance. Eye contact fair. Motor activity appropriate. Speech within normal limits. Affect congruent, mood anxious. Thoughts linear, logical, no signs of hallucinations or delusions. Reviewed client?s symptom tracker, no risk for suicidal ideation, plan, or intent. Client Response/Progress/Benefit: [] Client responded well to session AEB listening to others and sharing thoughts/feelings. Client reported mental health positive mental health positive as taking steps to slow down with how much tasks/responsibilities he puts on his plate. 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 Client stated the conversation went ok, but stated still not completely figured out. Shared he needs some help with explaining to his importance of him having structure. Client reported current stressor was having his one of his co-workers had a heart attack this morning. Appeared to benefit from support from peers. Will continue IOP tx to increase consistent use of healthy coping skills, challenge distorted/negative thoughts, and prevent decompensation.
--- NOTE | 2023-11-06 10:10 | BH.SGPN.GN ---
Behaviors/Verbalizations/Mental Status: [] Eye contact is good. Motor activity is appropriate. Appearance is casual. Speech is Appropriate. Mood is depressed and anxious. Affect is congruent. Thoughts are linear and logical. No evidence of psychosis. Client Response/Progress/Benefit: [] Pt receptive to session AEB contributing to group discussion, as well as listening attentively to others, and taking notes. Worked with group to brainstorm the positive and negative aspects of stress on physical and mental health as well as the impact of distress on performance, relationships, and mental health. Pt shared their top stressors to be: work, managing employees, and poor time management. Shared when feeling overwhelmed with stress they tend to procrastinate, catastrophize, panic. Benefited from increased awareness of positive and negative stress as well as how stress impacts mental health and relationships. Will continue in IOP to promote utilization of distress tolerance skills, self-care, and prevent decompensation. Narrative Note: []
--- NOTE | 2023-11-06 11:10 | BH.SGPN.GN ---
Behaviors/Verbalizations/Mental Status: []Pt alert and oriented, casually dressed and groomed. Eye contact good. Motor activity appropriate. Speech within normal limits. Affect congruent, mood anxious and distracted. Thoughts linear, logical, no signs of hallucinations or delusions. Client Response/Progress/Benefit: [] Pt was an active participant in group discussions and experiential activity. Attentive during psychoeducation on the 4 A's (Avoid, adapt, alter, accept) of coping with stress. Pt wants to work on acceptance, specifically with allowing himself to set realistic timelines for what he can accomplish at work. Was able to identify the connection between the experiential activity and utilization of stress management skills. Benefited from increased awareness of stress management strategies. Pt will continue IOP tx to prevent decompensation, improve daily functioning, and increase self-care. Narrative Note: []
--- NOTE | 2023-11-08 09:03 | BH.SGPN.GN ---
Behaviors/Verbalizations/Mental Status: [] Eye contact good. Motor activity appropriate. Speech within normal limits. Affect congruent, mood content but anxious. Thoughts linear, logical, no signs of hallucinations or delusions. Reviewed client?s symptom tracker, denies SI, plan, or intent as of 11/08/2023. Client Response/Progress/Benefit: [] Client receptive of session, attentive and willing to process with group. Identified mental health ?wins? today as making strides towards adjusting his workload and reaching out for help during their busiest season. Shared this is also a major stressor as the deadline for several things is in a month and he feels he is not going to get caught up in time. Shared trying to accept he will need an extension on the deadline but that this is uncomfortable for him as he does not like to feel behind or needing help. 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 Described feeling an obligation toward the family farm but is reminding himself it is not he is allowed to set boundaries and not help in order to address his own needs. Receptive of and appearing to benefit from supportive feedback and suggestions provided by the group. Recommended continued IOP tx to continue to improve mood stability, promote consistency of skill application and thought challenging, as well as prevent decompensation. Narrative Note: []
--- NOTE | 2023-11-08 10:15 | BH.SGPN.GN ---
Behaviors/Verbalizations/Mental Status: []Patient was alert and oriented, casually dressed and groomed. Eye contact was fair, motor activity normal, speech within normal limits. Affect constricted, mood anxious. Thoughts linear, logical, no signs of hallucinations or delusion Client Response/Progress/Benefit: [] Pt participated in the group discussions AEB providing input and taking notes. Attentive during psychoeducation Goal Setting. Participated during the discussion on common barriers which the group identified as: lack of motivation, not knowing where to start, not feeling good enough, and lack of support. Group also identified benefits sense of purpose, improved self-confidence, more motivation for other goals, and improved mental health. Benefited from increased awareness of mental health benefits of goals as well as psychoeducation on SMART goal criteria. Will continue in IOP to improve mood stability, increase use of healthy coping skills, challenge distortions, and increase self-care practices. Narrative Note: []
--- NOTE | 2023-11-08 11:15 | BH.SGPN.GN ---
Behaviors/Verbalizations/Mental Status: []Pt alert and oriented, casually dressed and groomed. Eye contact good. Motor activity appropriate. Speech within normal limits. Affect congruent, mood anxious. Thoughts linear, logical, no signs of hallucinations or delusions. Client Response/Progress/Benefit: [] Pt was engaged during discussion and willing to complete the worksheet challenging them to develop a personal SMART goal. 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 Pt stated this will help take stress off his plate and develop patience. Pt stated loss of ownership and down times as a potential barriers. Identified solutions as meeting his financial advisors to improve trust and challenge expectations. Pt receptive to identifying solutions for these barriers and willing to begin working on this goal. Benefited from this group by developing a short-term SMART goal related to mental health. Will continue IOP tx to continue working on letting go of some control in certain tasks/responsibilities, challenging distortions, and prevent decompensation.
--- NOTE | 2023-11-10 11:10 | BH.SGPN.GN ---
Behaviors/Verbalizations/Mental Status: []Pt alert and oriented, causally dressed and appropriately groomed. Eye contact good. Motor activity appropriate. Speech within normal limits. Affect congruent, mood euthymic. Thoughts linear, logical, no signs of hallucinations or delusions. Client Response/Progress/Benefit: [] Pt responded well to session AEB completing the resilience worksheet provided. Pt participated in the discussion and worked cooperatively with group to identify strategies to enhance each of the components discussed. Pt reports belief they already use resilience traits of??self-awareness and keeping things in perspective. Pt stated they would like to continue to develop resilience trait of ?accepting that change is a part of living? as pt recognizes he struggles with trying to control what's outside his control. Pt seemed to benefit from discussing strategies for improving personal resilience and identifying resilience traits pt already possesses. Will continue IOP tx to decrease anxiety, increase healthy coping, and prevent decompensation.
--- NOTE | 2023-11-10 15:11 | BH.MDN ---
Multi-Disciplinary Note Note 60-min Individual: Time Started:: 09:00 Date: 11/10/23 Time Stopped:: 10:00
--- NOTE | 2023-11-13 09:05 | BH.SGPN.GN ---
Behaviors/Verbalizations/Mental Status: [] Eye contact is good. Motor activity is restless. Appearance is casual. Speech is Appropriate. Mood is anxious. Affect is congruent. Thoughts are linear and logical. No evidence of psychosis. Reviewed daily check in sheet and no reports of suicidal ideations or intent. Client Response/Progress/Benefit: [] ?Participated when prompted. Pt reports being restless, agitated, and anxious this AM. Overwhelmed and ?depressing? to cut back on his work. He shared spending time with kids and attending his son?s baseball game however was preoccupied with work. His perception of his day is based on conversations and activities that are productive and non-productive. He views anything not related to work as non-productive. Self- worth is dependent on career achievement. He is struggling to see benefit in anything outside of work which is what led him to getting ?burned out?, depressed, and into IOP. Limited progress noted today. Limited benefit as he did not appear receptive to feedback and reframing from peers. Will continue in IOP to prevent decompensation, decrease intrusive thoughts and mistaken beliefs. Narrative Note: []
--- NOTE | 2023-11-13 10:15 | BH.SGPN.GN ---
Behaviors/Verbalizations/Mental Status: []Pt alert and oriented, neatly dressed and groomed. Eye contact good. Motor activity appropriate. Speech within normal limits. Affect congruent, mood anxious and agitated. Thoughts linear, logical, no signs of hallucinations or delusions. Client Response/Progress/Benefit: [] Pt took notes and contributed occasionally. Attentive during psychoeducation on growth mindset. Participated during the activity. Interactive group discussion on growth mindset in which group verbalized their current fixed mindsets and how they affect their mental health. Pt shared common fixed mindset thoughts they have which included I have to be productive and I have to make money.? These thoughts lead to pt not allowing himself breaks and feeling like a failure. Pt benefited from increased awareness of growth mindset and fixed thoughts and how fixed thoughts impact their mental health. Will continue IOP tx to promote mood stability, increase self-care practices, and combat all or nothing thinking. ? Narrative Note: []
--- NOTE | 2023-11-13 12:02 | PCM.BH.PN ---
Progress Note Progress Note: History of Present Illness/Interim History: The patient is a 37-year-old male with a long history of depression and anxiety who is seen in follow-up at the [facility] behavioral health [facility]. I last saw the patient 2 and half weeks ago and at that time Remeron 15 mg p.o. nightly was added to his medication regimen. Patient is tolerating it well and states that his anxiety is much less than it was before. He feels much better overall and the staff corroborates this. He denies feeling burned out anymore. His sleep is much better and he is getting 7 hours a night. He denies any passive thoughts of now. He has not had any panic attacks in almost 1 month now. He denies any suicidal ideation since starting the IOP. He also denies homicidal ideation, hallucinations, delusions or symptoms of salma or hypomania. He is hopeful for the future but he is becoming aware that when he is not working excessively he states that he feels depressed that I am not getting enough done. Current Psychiatric Medications: [] Prozac 40 mg p.o. daily; Wellbutrin XL 150 mg p.o. every morning; Remeron 15 mg p.o. nightly; topiramate 50 mg p.o. daily for migraine headaches. Mental Status Examination: [] The patient is a 37-year-old male who is thin and appears normal for stated age. He is ambulatory with a normal gait and is casually dressed and groomed with good hygiene. He has no psychomotor agitation or retardation. Eye contact is good and speech is normal rate and rhythm and fluent with no pressure. Mood is mildly depressed. Affect is full and normal. Thought process is goal-directed and organized. Patient remains somewhat overinclusive but does not need to be redirected today. Thought content: The patient is hopeful for the future. There is no evidence of passive thoughts of , passive or active suicidal ideation, homicidal ideation, hallucinations or delusions. Reality testing is intact. Intelligence is above average. Judgment is intact. Insight is fair. Impulsivity is low. Diagnoses: [] 1. Major depressive disorder, recurrent, moderate (F33.1) 2. Generalized anxiety disorder 3. Migraine headaches 4. Primary support and work issues Plan: [] The patient will continue the [facility] and behavioral health as the structure, support, education and group therapy will hopefully prevent worsening of the patient's symptoms which might require hospitalization. He felt safe during the interview and if it anytime he does not feel safe he agrees to let us know or go to the emergency room. The risk, options, possible complications and side effects of the medications were again discussed with the patient and he understands and accepts these. No medication changes were made today. Discussed with the patient that in a few weeks if he continues to improve I would recommend weaning the Prozac and leaving him on the other medications. 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 He has not obtained his TSH and vitamin D blood work yet and he agrees to get that soon. He will continue to follow-up with his outpatient providers and I will see the patient in follow-up in 2 weeks.
--- NOTE | 2023-11-13 14:31 | BH.MDN ---
Multi-Disciplinary Note Note 60-min Individual: Time Started:: 11:20 Date: 11/13/23 Purpose of session/treatment goals addressed:: Purpose of session was to address goals 1 and 2 from MTP. Eye Contact:: Good Motor Activity:: Restless Appearance:: Casual Speech:: Rapid Mood:: Anxious and Dysthymic Affect:: Congruent Thoughts:: Logical and Racing Staff Interventions:: thought challenging, CBT techniques, mindfulness skills, strengths perspective and goal setting Client Response:: Client reported this weekend he struggled with an increase in anxiety. Client stated he felt like he got nothing done. Client stated he recognizes he did a lot of different things over the weekend, but doesn't see it as productive because it wasn't for his job. 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 Client stated he did feel some increase in depression on Monday when reflecting on how much he didn't get accomplished. Client stated he would like to be able to relax and focus on being a dad and on the weekends, but it's something he hasn't done so he finds it challenging. Client reported previously he would work at least 4 hours on Monday and Monday for his job. Client stated he is often physically present for his children, but struggles with being mentally present. Client reported he is often thinking about what he could or should be doing when he has down time. Client connected with dialectical thinking, starting to see how he can be productive and have time to relax. Through further exploration client stated he believes he has so much drive to be successful because as a kid he never felt good enough due to his sister and older brothers being smarter and successful in school. Client recognizes he is often working trying to reach success, but doesn't really think he can ever feel satisfied. Therapist reviewed grounding and breathing skills with client, encouraging him to use these skills more consistently to help him feel present. Client stated he has been using the breathing skills which has helped him manage some of his anxiety in the moment. Risks/Concerns:: Denies suicidal ideation, plan, or intention to date. future oriented. Progress Toward Goals/Plan:: Client noted slight increase in anxiety and depression yesterday. Client make steps to take some work off his plate, but is having a difficulty time adjusting to slight decrease in work responsibility. 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 Client recognizes his identity for his life has been wrapped up in work, but stated he no longer wants to be that way. Client is to continue IOP to challenge distorted/negative thoughts, improve ability to give credit to himself, and prevent decompensation. Time Stopped:: 13:20
--- NOTE | 2023-11-15 09:01 | BH.SGPN.GN ---
Behaviors/Verbalizations/Mental Status: []Pt alert and oriented, casually dressed and groomed. Eye contact fair. Motor activity appropriate. Speech within normal limits. Affect constricted. mood depressed. Thoughts linear, logical, no signs of hallucinations or delusions. Reviewed pt?s symptom tracker, no risk for suicidal ideation, plan, or intent. Client Response/Progress/Benefit: []Pt responded well to session, attentive and engaged. Pt stated feeling little depressed and disconnected this morning. Pt reported he thinks he is struggling because he is missing his dog. Pt stated grief is a trigger to his down mood. Pt seemed to benefit from support from peers and openly sharing his feelings. Pt will continue IOP tx to promote use of healthy coping skills, challenge distorted thoughts, and prevent decompensation.
--- NOTE | 2023-11-15 10:15 | BH.SGPN.GN ---
Behaviors/Verbalizations/Mental Status: [] Eye contact is good. Motor activity is appropriate. Appearance is casual. Speech is Appropriate. Mood is dysthymic and anxious. Affect is congruent. Thoughts are linear and logical. No evidence of psychosis. Client Response/Progress/Benefit: [] Client receptive to session AEB listening attentively to others and taking notes. Limited input however was attentive throughout psychoeducation on the cognitive triangle and maintenance cycles. Attentive during group discussion reviewing the impact of daily activities and behaviors in either reinforcing unhealthy maintenance cycles and depression or assisting in reducing symptoms (?down? vs ?up? activities). Client identified personal ?down? activities they engage in as: excessive worry, isolation, family at times. Attentive during discussion on Common ?Up? activities client identified theirs to include: time with animals and his kids. Appeared to benefit from increased awareness of current behaviors and impact these have on mental health. Will continue in IOP to stabilize mood, prevent decompensation, and improve functioning. Narrative Note: [] Narrative Note: []
--- NOTE | 2023-11-15 11:15 | BH.SGPN.GN ---
Behaviors/Verbalizations/Mental Status: []Eye contact is good. Motor activity is appropriate. Appearance is neat. Speech is Appropriate. Mood is distracted. Affect is constricted. Thoughts are linear and logical. No evidence of psychosis. Client Response/Progress/Benefit: []Pt responded well to session, attentive and engaged in group discussions and activity. Group discussed values and the benefits that knowing one's values can have on one's mental health. Pt explored own values and identified personal top values. Pt stated a personally important value is family. Pt set a goal to go to spend more time with his and go out together every two weeks. Pt benefitted from gaining insight to his values and how these values can help set and accomplish goals. Will continue in IOP to reduce all or nothing thinking and expectations, improve daily functioning, and increase self-care. Narrative Note: []
--- NOTE | 2023-11-15 14:54 | BH.MDN ---
Multi-Disciplinary Note Note Family: Time Started:: 12:10 Date: 11/15/23 Purpose of session/treatment goals addressed:: Purpose of session was to improve open discussion between pt and his . 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 Client stated he has recognized through his time in IOP and is far that he truly needs to take a step back from all the job responsibilities that he has put on himself. Therapist inquired what Varsha has seen from client in the last few weeks. Varsha shared she still notices that he is having a significant time with cutting back from extra job responsibilities. 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 Varsha stated that yesterday client was harping on me about tasks that she was doing for the business which made her feel that he thinks that she is dumb. Client able to recognize that he is still struggling with micromanaging the business together because he has a certain way of doing things and struggles with not double checking with her. Client stated he has been trying to work on not because he checked in with her on if she is getting certain task complete for their business. Therapist inquired what Varsha will be willing to dedicate to working on their business during the weekdays when school starts back up because this tends to be a source of anxiety and stress for client. Varsha stated that she would be willing to dedicate at least 1 day a week to helping at the business. Client stated she will say that but if the school calls her he knows that she will choose to flower buncher or picker a shift despite telling him she be available. Therapist provided some psychoeducation about differences and sense of urgency and being able to be flexible with changes. Client recognizes that he tends to be more rigid and if he wants something done he wants it done now. Varsha shared she is more go with the flow and get things done as they get done but then stated at the end of the day she always gets her task complete. Therapist suggested idea that every Monday they sit down for a quick meeting to discuss what the game plan is for the following week this way both of them on the same page and client will no which day each week Varsha will be available to work. Discussed the idea of possibly hiring somebody to help but both client and Varsha stated they did not think that enough work to bring somebody on. Varsha stated there are times that she would like to have more quiet and space but recognizes that client really struggles if he does not get time with her. Both stated that they have not been taking time each week to spend quality time together which is something they used to do several months ago of going to lunch while the kids are at school. Client stated he thinks last time they went to lunch together was back in May. Therapist encouraged them to get back to doing weekly lunches. Therapist also encouraged them to not talk about work the entire time while they are at lunch. Client stated it is something he definitely needs to work on. Additional goal for client is to walk away when he hast he urge to make sure Varsha is doing a task she knows needs completed. Both client and Varsha expressed being agreeable to plan. Risks/Concerns:: Client denies suicidal ideation, plan, or intention to date. Progress Toward Goals/Plan:: Client report slight increase in anxiety and depression this week. Client trying to cut back from work and focus on allowing self to work, but admits this is a struggle for him. Progress noted from today's family session that both client and his are open to improving open communication and getting back to spending more quality time together. Client is to continue IOP to decrease anxiety, challenge distorted thoughts, and prevent decompensation. Time Stopped:: 13:30
--- NOTE | 2023-11-17 09:00 | BH.SGPN.GN ---
Behaviors/Verbalizations/Mental Status: [] Pt alert and oriented, neatly dressed and groomed. Eye contact good. Motor activity appropriate. Speech within normal limits. Affect congruent, mood euthymic and anxious. Thoughts linear, logical, no signs of hallucinations or delusions. Reviewed pt?s symptom tracker, no risk for suicidal ideation, plan, or intent 11/17/23 Client Response/Progress/Benefit: []Pt responded well to session, attentive and engaged. Pt reports feeling anxious and calm this morning as pt has less work right now which is good to help slow down, but it also triggers pt's need to constantly be productive. Pt reports wins today as sitting with the uncomfortable and not volunteering to work with his brother this weekend. Pt is doing well in IOP and working towards tx goals. Pt's stressor today is he has a constant urge to work and recognizes he talks about work like some people talk about drugs or alcohol. Pt appeared to benefit from reflecting on application of healthy coping skills and connecting with peers. Pt will continue IOP tx to promote gains, increase distress tolerance, and improve self-care strategies. Narrative Note: []
--- NOTE | 2023-11-17 10:05 | BH.SGPN.GN ---
Behaviors/Verbalizations/Mental Status: [] Client alert and oriented, casually dressed and groomed. Eye contact good. Motor activity appropriate. Speech within normal limits. Affect congruent, mood euthymic. Thoughts linear, logical, no signs of hallucinations or delusions. Client Response/Progress/Benefit: []Client responded well to session, contributing to discussion and engaged during the activity. Attentive during discussion on the quote. Group identified the benefits of change which included: confidence better relationships, and improved mental health. Worked with the group to identify barriers to change, which included: anxiety and fear, confusion, external variables, and negative thinking. Client also reported reflected on past negative experiences can keep people from making changes. Client participated along with group in activity where they identified and discussed the emotions related to change. Benefited from increased awareness and understanding of emotions, benefits, and barriers related to change. Will continue IOP tx to increase heathy coping skills and reduce negative thought patterns. Narrative Note: []
--- NOTE | 2023-11-17 11:05 | BH.SGPN.GN ---
Behaviors/Verbalizations/Mental Status: [] Client alert and oriented, casually dressed and groomed. Eye contact good. Motor activity appropriate. Speech within normal limits. Affect congruent, mood euthymic. Thoughts linear, logical, no signs of hallucinations or delusions. Client Response/Progress/Benefit: [] Client responded well to session, attentive throughout. Did well to process activity and work with group to relate the strategies used to overcome barriers in the activity to managing change in own life. Client identified a change they would like to make is reducing working and not feel the need to work constantly. Client identified currently being in the action phase. Client said not picking up addtional work and accepting help consistently will help him get to next stage. Appeared to benefit from identifying a change they want and how to progress. Client will continue IOP tx to increase self care and positive thought patterns. Narrative Note: []
--- NOTE | 2023-11-20 09:05 | BH.SGPN.GN ---
Behaviors/Verbalizations/Mental Status: [] Eye contact is good. Motor activity is appropriate. Appearance is casual. Speech is Appropriate. Mood is anxious/irritable. Affect is congruent. Thoughts are linear and logical. No evidence of psychosis. Reviewed daily check in sheet and no reports of suicidal ideations or intent. Client Response/Progress/Benefit: [] Pt participated when prompted. Attentive. Very brief and superficial check-in. States that he was ill this weekend which forced him to ?slow down?. It was his birthday and he made a conscious effort to be mindful, positive, and take things slow. Limited progress noted. Benefited from group support, encouragement, and feedback. Will continue in IOP to prevent decompensation, increase healthy coping, and challenge core unhealthy beliefs. Narrative Note: []
--- NOTE | 2023-11-20 10:10 | BH.SGPN.GN ---
Behaviors/Verbalizations/Mental Status: []Eye contact is good. Motor activity is appropriate. Appearance is casual. Speech is Appropriate. Mood is euthymic. Affect is congruent. Thoughts are linear and logical. No evidence of psychosis. Client Response/Progress/Benefit: [] Pt was an active participant in activity and taking notes during group discussion. Attentive during psychoeducation and interactive discussion on coping skills included why people use unhealthy skills. Group came up with list of unhealthy coping skills and pt identified personal ones as overworking, avoidance, and isolation. Group discussed the effects of how unhealthy coping skills can impact mental health in a negative way. Participated during experiential activity and was able to relate the activity to group topic regarding the benefits of developing strong internal and external support system. Benefited from increased understanding of unhealthy coping skills and the need for developing healthy internal and external coping skills. Pt will continue IOP tx to improve ability to slow down/relax, challenge distortions, and prevent decompensation.
--- NOTE | 2023-11-20 11:15 | BH.SGPN.GN ---
Behaviors/Verbalizations/Mental Status: []Pt alert and oriented, casually dressed and groomed. Eye contact good. Motor activity appropriate. Speech within normal limits. Affect constricted, mood anxious and dysthymic. Thoughts linear, logical, no signs of hallucinations or delusions. Client Response/Progress/Benefit: [] Pt responded well to session, taking notes and contributing when prompted. Group discussed the different categories of coping skills which included distraction, emotional release, grounding, self-love, and thought challenging. Pt participated in creating a coping skills ?menu? from the five categories of coping skills. Pt's coping skill menu included: exercise, reach out to his , gratitude, start a new project, and engage in hobbies/interests. Appeared to benefit from increasing repertoire of healthy coping skills. Will continue IOP to improve mindfulness skills, challenge distortions, and prevent decompensation. Narrative Note: []
--- NOTE | 2023-11-21 09:05 | BH.SGPN.GN ---
Behaviors/Verbalizations/Mental Status: [] Eye contact is good. Motor activity is appropriate. Appearance is casual. Speech is Appropriate. Mood is euthymic. Affect is full. Thoughts are linear and logical. No evidence of psychosis. Reviewed daily check in sheet and no reports of suicidal ideations or intent. Client Response/Progress/Benefit: [] Pt participated at times during the group discussion on differences between Empathy and Sympathy. Able to identify mental health progress regarding struggles with mistaken beliefs regarding work. Able to engage and be mindful during conversations and family events. Made connections and was not focused on work or ?being productive?. Practicing acceptance. Increased awareness of how being a ?workaholic? is impacting his relationships and his ability to enjoy life. Progress noted. Benefited from group support, encouragement, and feedback. Will continue in IOP to prevent decompensation, increase healthy coping, and to decrease mistaken beliefs. Narrative Note: []
--- NOTE | 2023-11-21 10:10 | BH.SGPN.GN ---
Behaviors/Verbalizations/Mental Status: [] Eye contact is good. Motor activity is appropriate. Appearance is casual. Speech is Appropriate. Mood is euthymic. Affect is congruent. Thoughts are linear and logical. No evidence of psychosis. Client Response/Progress/Benefit: [] Pt an active participant in group discussions. Participated during interactive discussion on defining conflict (internal/external) and possible benefits to conflict. Attentive during psychoeducation on conflict styles (Avoidant, Accommodating, Competing, Cooperative) and engaged during interactive discussion in which peers identified the benefits and consequences to each conflict style. Pt identified their primary conflict style as accommodating. Stated negative consequence from being accommodating is he can get taken advantage of because others, especially family, know he won't say no. Benefited from increased awareness of the impact of conflict styles in mental health. Will continue in IOP tx to increase healthy coping skills, challenge negative/distorted thoughts, and prevent decompensation.
--- NOTE | 2023-11-21 11:10 | BH.SGPN.GN ---
Behaviors/Verbalizations/Mental Status: [] Eye contact is good. Motor activity is appropriate. Appearance is casual. Speech is Appropriate. Mood is euthymic. Affect is congruent. Thoughts are linear and logical. No evidence of psychosis. Client Response/Progress/Benefit: [] Pt was an active participant in group discussions and activity. Engaged with peers in activity and identifying healthy ways to approach each conflict scenario. Group discussed various conflict resolution skills that can be useful in addressing conflict outside of IOP. Benefited from practicing and learning conflict resolution skills during group activity. Able to identify areas pt wants to work on to improve how pt manages conflict both internally and externally. Expressed wanting to work on being able to say no to his brothers when pt's plate is too full. Will continue in IOP to promote use of healthy calming tools, challenge distortions, and prevent decompensation.
--- NOTE | 2023-11-21 14:57 | BH.MDN_ITS ---
Multi-Disciplinary Note Note 60-min Individual: Time Started:: 12:15 Date: 11/21/23 Purpose of session/treatment goals addressed:: Purpose of session was to address goals 1 and 2 from [facility]. Eye Contact:: Good Motor Activity:: Appropriate Appearance:: Casual Speech:: Appropriate Mood:: Euthymic and Anxious Affect:: Congruent Thoughts:: Linear, Logical and No evidence of hallucinations/delusions noted Staff Interventions:: thought challenging, CBT techniques, mindfulness skills, strengths perspective, goal setting and taught coping skills Client Response:: Client reported he read the article therapist provided him about impact of being a workaholic. Client stated he couldn't believe how accurate the article was about him. Client stated he could relate to most of the things the article said about his thinking in regards to work. Client stated he connected with some of the perfectionistic type and a lot of the compulsive type of workaholic. Client stated he has come to realize that he thinks his overworking is his attempt to fill a void. Client stated he has never felt good or smart enough since he was an adolescent/young adult because of how well his older siblings did academically. Client reported he has difficult time giving [facility] credit for what he has done/achieved because it never feels like enough. Client reported he recognizes he can be difficult to work with because he tends to micromanage his when they work together. Client stated he does believe his need to work all the time negatively impacts his anxiety and health. Client connected with several of the strategies about small steps can take to decrease being an over-worker. Client stated he would like to work on setting a stop time each day that he will no longer do work after that designated time. Client reported he has thought about maybe getting a second phone that can specifically be his personal phone so he can have a work phone that he doesn't bring with him when not necessary. Client stated he also wants to work on improving relationship with his by going out to lunch with her at least once a week. Client reported reading the article has helped him feel better because he has a better understanding of himself and can make changes that can benefit his mental health and his family. Risks/Concerns:: Client denies suicidal ideation, plan, or intention to date. future oriented. Progress Toward Goals/Plan:: Progress noted with client reporting decreased anxiety the last few days. Client reported since reading the article about workoholic he better understands himself and can recognize the importance of taking breaks from work. Client connected how much constantly working plays into his anxiety. Client also somewhat receptive to making a memorial for his dog that passed last year. Client stated he has been thinking about it. Therapist explained importance of letting himself mourn the loss of his dog that was a significant source of comfort. 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 This demonstrates progress because a couple weeks ago client wouldn't have considered picking up a hobby because it would take away from work. Client to continue IOP to challenge negative/distorted thoughts, consistently apply healthy coping skills, and prevent decompensation. Time Stopped:: 13:15
--- NOTE | 2023-11-23 09:02 | BH.SGPN.GN ---
Behaviors/Verbalizations/Mental Status: [] Eye contact good. Motor activity appropriate. Speech within normal limits. Affect congruent, mood content, anxious. Thoughts linear, logical, no signs of hallucinations or delusions. Reviewed client?s symptom tracker, denies SI, plan, or intent as of 11/23/2023. Client Response/Progress/Benefit: [] Client receptive of session, attentive and willing to process with group. Identified mental health ?wins? as making progress on allowing himself to take breaks from being productive and practice self-care instead. Shared that he challenged himself to stop working on the house and instead help his son care for a baby deer they found in the yard. Reports this is something he would've done when he was much younger and was glad he took the time to have that experience with his son. 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 Shared this is out of his comfort zone but helping him take steps to be okay with non-productive work. Current stressor noted as wanting to reach out and encourage his brother to seek mental health treatment for his anxiety. Shared he is nervous about being vulnerable about his own mental health but believes opening up with help to encourage his brother to seek treatment for himself. Receptive of and appearing to benefit from supportive feedback and suggestions provided by the group. Recommended continued IOP tx to continue to promote mood stability, encourage ongoing skill building and application, as well as prevent decompensation. Narrative Note: []
--- NOTE | 2023-11-23 10:10 | BH.SGPN.GN ---
Behaviors/Verbalizations/Mental Status: [] Client alert and oriented, casually dressed and groomed. Eye contact good. Motor activity appropriate. Speech within normal limits. Affect congruent, mood euthymic. Thoughts linear, logical, no signs of hallucinations or delusions. Client Response/Progress/Benefit: [] Client was an active participant, AEB taking notes and providing input in group discussions and activities. Attentive during psychoeducation. Client engaged during interactive discussion in which the group defined self-care and discussed its benefits. Group discussed barriers to engaging in self-care. Group members together came up with guilt, time, urge to put others first, not knowing what to do for self-care,and perception that its unproductive as barriers to engage in self care. Client participated in small groups where they worked to identified and challenged common self-care ?myths?. Benefited from increased awareness of self-care, its benefits, and the consequences of not utilizing self-care strategies. Will continue IOP tx to prevent decompensation, decrease anxiety, and increase coping strategies. Narrative Note: []
--- NOTE | 2023-11-23 11:10 | BH.SGPN.GN ---
Behaviors/Verbalizations/Mental Status: [] Client alert and oriented, casually dressed and groomed. Eye contact good. Motor activity appropriate. Speech within normal limits. Affect congruent, mood euthymic. Thoughts linear, logical, no signs of hallucinations or delusions. Client Response/Progress/Benefit: [] Client engaged participant AEB completing self-assessment of current self care and providing input throughout discussion. Client completed worksheet identifying current self-care practices and what self-care activities client wants to start using. Client selected emotional self-care to begin practicing more consistently. Client plans to do this by spending more time with his family. Appeared to benefit from completing the self-care evaluation and gaining insights into current self-care practices, as well as identifying areas in which client would like to improve upon. Client will continue IOP tx to increase healthy coping skills, challenge distorted/negative thoughts, and prevent decompensation.
== END 2023-11-26 23:59 ==
LOC: BHIOP 08:12
PROVIDERS: PCP Family Medicine; Referring Provider Psychiatry & Neurology Psychiatry; Visit Provider Psychiatry & Neurology Psychiatry
DX: F33.1 Major depressive disorder, recurrent, moderate (principal); F41.1 Generalized anxiety disorder; G43.019 Migraine without aura, intractable, without status migrainosus; Z79.899 Other long term (current) drug therapy
CPT/HCPCS: S9480; 90837; 90846; 90853

== ENCOUNTER 2023-11-27 07:14 | Outpatient (RCR) | payer OTHER, SELFPAY ==
[2023-11-27 00:24] VITALS: BP 136/89; PULSE 72
--- NOTE | 2023-11-27 09:00 | BH.SGPN.GN ---
Behaviors/Verbalizations/Mental Status: [] Eye contact is good. Motor activity is appropriate. Appearance is casual. Speech is Appropriate. Mood is anxious. Affect is congruent. Thoughts are linear and logical. No evidence of psychosis. Reviewed daily check in sheet and no reports of suicidal ideations or intent. Client Response/Progress/Benefit: [] Pt participated when prompted. Attentive. Daily symptom tracker notes 2/5 for depression and anxiety. Emotion for today is calm. He shared with the group several strategies that he has incorporated recently which have been beneficial to his overall mental health. Engaging more during events and relationships outside of work. Setting boundaries with himself regarding work as well. Progress noted per pt report. Benefited from group support, encouragement, and feedback. Will continue in IOP to prevent decompensation, increase healthy coping, and improving functioning during social/familiar events. Narrative Note: []
--- NOTE | 2023-11-27 10:10 | BH.SGPN.GN ---
Behaviors/Verbalizations/Mental Status: [] Pt alert and oriented, appropriate grooming/appearance. Eye contact good. Motor activity appropriate. Speech within normal limits. Affect congruent, mood anxious. Thoughts linear, logical, no signs of hallucinations or delusions. Client Response/Progress/Benefit: [] Pt was an active participant in group discussions. Attentive during psychoeducation. Contributed during interactive discussions in which peers attempted to define crisis. Group identified examples of potential crisis. Group also worked together to identify unhealthy responses to crisis which included lashing out, isolation, self-harm, substance abuse, and sleep disturbances. Pt identified personal warning signs as increased negative thinking, problems with memory, and loss of interest. Benefited from increased understanding of crisis and awareness of personal responses to crisis. Pt will continue IOP tx to increasing healthy coping skills, improve distress tolerance, and prevent decompensation. Narrative Note: []
--- NOTE | 2023-11-27 11:10 | BH.SGPN.GN ---
Behaviors/Verbalizations/Mental Status: [] Pt alert and oriented, appropriate grooming/appearance. Eye contact good. Motor activity appropriate. Speech within normal limits. Affect congruent, mood anxious. Thoughts linear, logical, no signs of hallucinations or delusions. Client Response/Progress/Benefit: [] Pt was an active participant in group discussions. Attentive during psychoeducation. In small group pt along with peers developed an active plan for their crisis warning signs. Pt identified three crisis warning signs as well as an action plan for each. One crisis warning sign was loss of interest. Pt identified coping skills to help with this such as: talk to someone, go out, do something differing. Benefited from increased awareness of crisis warning signs and by developing crisis intervention strategies. Will continue in IOP to prevent decompensation, improve daily functioning, and gain healthy coping skills. Narrative Note: []
--- NOTE | 2023-11-29 09:05 | BH.SGPN.GN ---
Behaviors/Verbalizations/Mental Status: [] Eye contact is good. Motor activity is appropriate. Appearance is casual. Speech is Appropriate. Mood is depressed and irritable. Affect is congruent. Thoughts are linear and logical. No evidence of psychosis. Reviewed daily check in sheet and no reports of suicidal ideations or intent. Client Response/Progress/Benefit: [] Pt participated at times during group discussions. Attentive. Unable to identify any mental health wins ? I have no wins?. States that he is stressed due in large part to work as well as family issues. Shared that he is concerned about family member?s mental health and unhealthy habits. Pt is struggling with these stressors which appear to be impacting his mental health. Reports anxiety, irritability, and decreased sleep. Regression noted. Benefited from group support, encouragement, and feedback. Will continue in IOP to prevent decompensation, stabilize mood, and increase healthy coping. Narrative Note: []
--- NOTE | 2023-11-29 10:10 | BH.SGPN.GN ---
Behaviors/Verbalizations/Mental Status: [] Eye contact is good. Motor activity is appropriate. Appearance is casual. Speech is Appropriate. Mood is euthymic. Affect is congruent. Thoughts are linear and logical. No evidence of psychosis. Client Response/Progress/Benefit: [] Pt engaged participant AEB listening to others, engaging in activity, and providing feedback at times. Attentive during psychoeducation and provided insight into obstacles that impede mental wellness. Pt shared with group current mental health reality and desired mental health reality. Stating he would like more simple in his life and to be okay with simple. Identified barriers to desired reality include: being lost, avoidance, lack of time, and toxic people. Benefited from taking look at current mental health state and obstacles for progress. Pt to continue IOP tx to improve mood stability, increase self care, and prevent decompensation. Narrative Note: []
--- NOTE | 2023-11-29 11:10 | BH.SGPN.GN ---
Behaviors/Verbalizations/Mental Status: [] Eye contact is good. Motor activity is appropriate. Appearance is casual. Speech is Appropriate. Mood is euthymic. Affect is congruent. Thoughts are linear and logical. No evidence of psychosis. Client Response/Progress/Benefit: [] Pt was an engaged participant in group discussion and activity. Worked with group to identify strategies to help overcome barriers and obstacles to desired reality. Group developed strategies for the common barriers. Identified personal barriers to desired reality and choose one obstacle to work. Pt stated he wants to work on barrier of overworking by chaning his patterns. Pt seemed to benefit from increased repertoire of healthy coping skills/strategies to overcome common barriers to moving forward. Pt is to continue IOP to increase healthy coping skills, challenge distortions, and prevent decompensation. Narrative Note: []
--- NOTE | 2023-12-01 09:05 | BH.SGPN.GN ---
Behaviors/Verbalizations/Mental Status: [] Eye contact is good. Motor activity is appropriate. Appearance is casual. Speech is Appropriate. Mood is euthymic. Affect is full. Thoughts are linear and logical. No evidence of psychosis. Reviewed daily check in sheet and no reports of suicidal ideations or intent. Client Response/Progress/Benefit: [] ?Pt participated at times. Attentive. Daily symptom tracker notes / for depression. Pt reports feeling ?centered?. Talked a great deal about being a workaholic and how this has impacted his relationships and overall quality of life. He is spending more time with his kids and gave some examples over the holiday. While he spent time with family previous since changing his perspective he is now mindful and not worried about work. Has been dealing with stressor related to a sibling with possible mental health struggles. Progress noted. Benefited from group support, encouragement, and feedback. Will continue in IOP to maintain gains. Narrative Note: []
--- NOTE | 2023-12-01 10:10 | BH.SGPN.GN ---
Behaviors/Verbalizations/Mental Status: [] Client Response/Progress/Benefit: [] Narrative Note: []
--- NOTE | 2023-12-01 11:15 | BH.SGPN.GN ---
Behaviors/Verbalizations/Mental Status: []Pt alert and oriented, casually dressed and groomed. Eye contact poor. Motor activity appropriate. Speech within normal limits. Affect congruent, mood depressed. Thoughts linear, logical, no signs of hallucinations or delusions. Client Response/Progress/Benefit: []Pt engaged participant AEB listening attentively to others and providing input throughout group. Pt worked within their small group to identify strategies to manage inappropriate guilt. Pt worked with group to identify strategies for both appropriate and inappropriate guilt. Pt selected self-compassion as a tool to help pt reduce inappropriate guilt he feels when pt does less work than he expects himself to do. Pt seemed to benefit from learning about strategies to manage appropriate and inappropriate guilt. Pt will continue IOP tx to promote use of healthy coping skills, increase self-care, and reduce perfectionisms that interferes with QOL. Narrative Note: []
--- NOTE | 2023-12-04 09:05 | BH.SGPN.GN ---
Behaviors/Verbalizations/Mental Status: [] Eye contact fair to good. Motor activity appropriate. Speech within normal limits. Affect congruent, mood dysthymic. Thoughts linear, logical, no signs of hallucinations or delusions. Reviewed client?s symptom tracker, denies SI, plan, or intent as of 12/04/2023. Client Response/Progress/Benefit: [] Client receptive of session, attentive and willing to process with group. Reports improved sx of agitation ?(3/5) and depression (2/5) per daily sx tracker. ?Identified a current stressor as a confrontation he had with his brother during their morning work meeting. 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 Pt reports that although this is frustrating, he is not going to budge on his boundary as he has recognized the importance of not over-working himself. Identified this as a win, as in the past he would have continued to maintain an unrealistic workload. Additional mental health win noted as allowing himself to slow-down and spend time with his children over the holiday weekend. Shared plans to continue to slow-down and step away from work more often as he has seen several mental health benefits to doing so. Receptive of encouragement and support from the group. Recommended continued IOP tx to further improve mood stability, promote skill application and continued boundary setting, as well as prevent decompensation. Narrative Note: []
--- NOTE | 2023-12-04 10:11 | BH.SGPN.GN ---
Behaviors/Verbalizations/Mental Status: [] Pt alert and oriented, casually dressed and groomed. Eye contact good. Motor activity appropriate. Speech within normal limits. Affect full, mood euthymic. Thoughts linear, logical, no signs of hallucinations or delusions. Client Response/Progress/Benefit: [] Pt participated in group discussion. Group worked together to identify benefits of healthy relationships which included encouragement, motivation, accountability, connectedness and minimized stress. Group identified factors that lead to unhealthy relationships which included low self esteem, trauma, lack of communication, parent's negative relationship growing up, and substance use. Benefited from increased insight and awareness of benefits of healthy relationships and factors that contribute to unhealthy relationships. Will continue in IOP to increase consistent use of healthy coping skills, increase consistent self care, and prevent decompensation. Narrative Note: []
--- NOTE | 2023-12-04 11:11 | BH.SGPN.GN ---
Behaviors/Verbalizations/Mental Status: [] Pt alert and oriented, casually dressed and groomed. Eye contact fair. Motor activity appropriate. Speech within normal limits. Affect full, mood euthymic, Thoughts linear, logical, no signs of hallucinations or delusions Client Response/Progress/Benefit: [] Client responded well to session, engaged and taking notes throughout. Worked with group to connect components of the experiential activity with characteristics of healthy and unhealthy relationships. Attentive during psychoeducation about characteristics of healthy, unhealthy, and abusive relationships. Client reported he would like to continue to improve with communication in healthier ways. Appeared to benefit from identifying current healthy relationship attributes and an area client wants to work on to build healthier relationships. Client to continue IOP to increase healthy coping skills, increase self care, and prevent decompensation. Narrative Note: []
--- NOTE | 2023-12-06 09:00 | BH.SGPN.GN ---
Behaviors/Verbalizations/Mental Status: [] Eye contact is good. Motor activity is appropriate. Appearance is casual. Speech is Appropriate. Mood is euthymic. Affect is full. Thoughts are linear and logical. No evidence of psychosis. Reviewed daily check in sheet and no reports of suicidal ideations or intent. Client Response/Progress/Benefit: [] Pt was an active participant in group discussions. Attentive. Pt reported he is starting to feel better with decreased anxiety and improved ability to manage anxiety. 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 Pt stated in the past these stressors would've resulted in significant anxiety and overthinking. 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 Progress noted per pt report. Benefited from group support, encouragement, and feedback. Will continue in IOP to increase consistent use of healthy coping skills, challenge distorted/negative thoughts, and prevent decompensation.
--- NOTE | 2023-12-06 10:00 | BH.SGPN.GN ---
Behaviors/Verbalizations/Mental Status: [] Eye contact is good. Motor activity is appropriate. Appearance is casual. Speech is Appropriate. Mood is anxious. Affect is congruent. Thoughts are linear and logical. No evidence of psychosis. Client Response/Progress/Benefit: [] Pt participated at times. Attentive. Participated in and was engaged during experiential activity. Able to relate experiential activity to group topic of FOF. Attentive during interactive discussion on what failure means to the group in which peers identified and defined failure and Fear of Failure. Attentive as group was able to identify impact of fear of failure on mental health identifying that it can lead to; giving up, isolation, complacency, self-sabotage, being hesitant to ask for help, and the self-fulfilling prophecy. Attentive during interactive discussion on the impact that FOF can have on mental wellness, depression, anxiety, career, relationships, and growth. Benefited from increased awareness of how the role that FOF plays in mental health and decision-making. Will continue in IOP to prevent decompensation, increase healthy coping, and improve functioning. Narrative Note: []
--- NOTE | 2023-12-06 11:48 | PCM.BH.PN_ITS ---
Progress Note Progress Note: History of Present Illness/Interim History: See below Diagnoses for HPI. Current Psychiatric Medications: [] Prozac 40 mg p.o. daily; Wellbutrin XL 150 mg p.o. every morning; Remeron 15 mg p.o. nightly (x 6 weeks now); topiramate 50 mg p.o. daily for migraine headaches Mental Status Examination: [] The patient is a 38-year-old male who is thin and appears normal for stated age and has no psychomotor agitation or retardation. He is casually dressed and groomed with good hygiene and ambulat ory with a normal gait. Eye contact is good and speech is normal rate and rhythm and fluent with no pressure. Mood is anxious and mildly depressed. Affect is full and normal. Thought process is goal-directed and organized with mild overinclusive and is at times. Thought content: The patient feels he is improving in his quality of life and is hopeful for the future. There is no evidence of passive thoughts of , suicidal ideation, homicidal ideation, hallucinations or delusions. Reality testing is intact. Judgment is intact. Insight is good. Impulsivity is low. Diagnoses: [] 1. Major depressive disorder, recurrent, moderate 2. Generalized anxiety disorder 3. Migraine headaches 4. Primary support and work issues[] HPI; The patient is a 38-year-old male with a long history of depression and anxiety who is seen in follow-up at the [facility] behavioral health IOP. I last saw the patient 3 and half weeks ago and no medication changes were made at that time. According to the staff the patient has been consistent in his attendance and has remained engaged in the program and is making progress. The patient is developing more awareness of his tendency to be a workaholic and perfectionistic. He is gaining an understanding of the effect this has on himself and his family. 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 He is less several weeks his migraine headaches have worsened after he got strep throat 3 weeks ago. He has severe neck tension with these migraines. He states that overall he feels he is much better overall still and denies feeling burned out anymore. Sleep is good at 7 or 8 hours a night. He denies passive thoughts of , panic attacks, suicidal ideation, homicidal ideation, hallucinations or delusions. He states his interactions with his and other family members especially at work have improved greatly. PLAN: Patient will continue the IOP and behavioral health as the structure, support, education and group therapy will hopefully prevent worsening of the patient's symptoms. He felt safe during the interview and if it anytime he does not feel safe he agrees to let us know or go to the emergency room. No medication changes were made today as the patient does not wish to wean his Prozac at this time as he feels he is doing so much better. He has some Flexeril at home and he agrees to try taking the Flexeril 5 or 10 mg p.o. at bedtime to see if it helps decrease his chronic neck 10 tension which is prob ably contributing to his worsening migraines. He will continue to follow-up with his outpatient medical and psychiatric providers and I will see the patient in follow-up in 2 weeks.
--- NOTE | 2023-12-06 13:04 | BH.MDN ---
Multi-Disciplinary Note Note 60-min Individual: Time Started:: 11:30 Date: 12/06/23 Purpose of session/treatment goals addressed:: Purpose of session was to address goals 1 and 2 from MTP. Eye Contact:: Good Motor Activity:: Appropriate Appearance:: Casual Speech:: Appropriate Mood:: Anxious Affect:: Full Thoughts:: Linear, Logical and No evidence of hallucinations/delusions noted Staff Interventions:: thought challenging, CBT techniques, mindfulness skills, discharge planning, strengths perspective and goal setting Client Response:: Client stated he is doing better today. Client reported he has been struggling with trying to get his brother help. Client stated he had an intervention for his brother about wanting the brother to get mental health care. Client reported the intervention did not go well because his brother was defensive. Client stated he is trying to focus on what's within his control in regards to his brother and recognizes he can't make his brother get help. 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 Client stated he would be freaking out by now if he was not trying to focus on managing his anxiety. 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 Client reported he felt like he managed a couple stressors earlier in this week very well compared to how he would have in the past. Client stated he would have been more frustrated with his about the mistake but he was able to use it as a learning opportunity and be calm about the situation. Client stated he is feeling anxious about being done in IOP because he is really grown to get a lot from the program and enjoy it. Client reported he does know that he is doing better and has been working on trying to let go of extra task and responsibilities that add to his are refilled plate. 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 Client reported he ordered the quail and will arrive next week sometime. Client reported he has been putting forth more effort to think about other self-care and hobby activities he can start doing to replace overworking. Risks/Concerns:: Denies suicidal ideation, plan, intention. Progress Toward Goals/Plan:: Progress note with client reporting improved use of healthy coping skills to manage anxiety, improved daily functioning, and ability to manage external stressors more effectively. Client does report slight increase in anxiety due to increased stress with upcoming deadline for his [employer] business and stress over his brothers current mental health struggles. Client has been doing better with focusing with within his control and reaching out to others for support. Client has set up an appointment for outpatient counseling with Lina at [facility] for December 21. Plan is for client to discharge from [facility] next week. Client to continue IOP to promote use of healthy coping skills, continue to challenge anxious and negative thought patterns, and prevent decompensation. Time Stopped:: 12:30
--- NOTE | 2023-12-07 09:00 | BH.SGPN.GN ---
Behaviors/Verbalizations/Mental Status: []Pt alert and oriented, casually dressed and groomed. Eye contact good. Motor activity appropriate. Speech within normal limits. Affect constricted, mood content. Thoughts linear, logical, no signs of hallucinations or delusions. Reviewed pt?s symptom tracker, no risk for suicidal ideation, plan, or intent 12/07/23 Client Response/Progress/Benefit: []Pt responded well to session, attentive and engaged. Pt reports feeling pretty content today as pt feels he got better sleep than he has in weeks. Pt shared he did not wake up with a headache today which was significant as pt has been having them daily due to stress per his report. Pt's mental health wins today include continuing to take time for his mental health and being okay with doing less. Pt's stressor today is next week is his last week in IOP tx and pt is sad to leave. Pt appeared to benefit from positive feedback that reinforced pt's healthy decisions. Pt will continue IOP tx to promote gains, increase self-care, and improve distress tolerance. Narrative Note: []
--- NOTE | 2023-12-07 10:10 | BH.SGPN.GN ---
Behaviors/Verbalizations/Mental Status: [] Eye contact is good. Motor activity is appropriate. Appearance is casual. Speech is Appropriate. Mood is anxious and content. Affect is congruent. Thoughts are linear and logical. No evidence of psychosis. Client Response/Progress/Benefit: [] Pt receptive of session, actively engaged throughout AEB taking notes, providing input, and contributing in small group discussion. Appeared to connect with group topic of automatic thoughts and cognitive distortions, as well as the impact of thought patterns on mental health, coping behaviors, and relationships. This particular group is very heavy on psychoeducation and pt appeared to connect with distortions and how they can impact functioning. Identified struggling with all or nothing thinking and predicting the future distortions. Pt appeared to benefit from gaining insight on distorted thinking patterns and how this impacts overall mental health. Will continue IOP to maintain mood stability and prevent decompensation. Narrative Note: []
--- NOTE | 2023-12-07 11:20 | BH.SGPN.GN ---
Behaviors/Verbalizations/Mental Status: []Pt alert and oriented, casually dressed and groomed. Eye contact good. Motor activity appropriate. Speech within normal limits. Affect congruent, mood anxious. Thoughts linear, logical, no signs of hallucinations or delusions Client Response/Progress/Benefit: [] Pt was an active participant during group discussion. Pt was placed in a smaller group and participated in combatting example distortions with peers. Pt was engaged in the smaller group, participated in group interactions to brainstorm answers, and appeared to be comprehending cognitive distortions. Pt could connect with all or nothing distortion to negatively impact him. Benefited from gaining further insight and awareness of cognitive distortions as well as practicing ways to reframe and challenge thoughts. Will continue in IOP tx to continue using healthy coping skills, challenge anxious thoughts, and prevent decompensation.
--- NOTE | 2023-12-13 10:10 | BH.SGPN.GN ---
Behaviors/Verbalizations/Mental Status: [] Pt alert and oriented, casually dressed and groomed. Eye contact good. Motor activity appropriate. Speech within normal limits. Affect euthymic, mood full. Thoughts linear, logical, no signs of hallucinations or delusions. Client Response/Progress/Benefit: [] Pt participated mainly during small group discussions. Attentive during psychoeducation about defense mechanisms. Showed engagement during small group discussions and helped group identify which defense mechanisms were maladaptive, adaptive, or ?somewhere in the gonzales.? Pt worked with small group on identifying how each defense mechanism can impact mental health and gave examples. ?Seemed to benefit from gaining awareness about the different defense mechanisms. Pt to continue IOP tx to prevent decompensation and increase healthy coping strategies. Narrative Note: []
--- NOTE | 2023-12-13 11:15 | BH.SGPN.GN ---
Behaviors/Verbalizations/Mental Status: []Pt alert and oriented, casually dressed and groomed. Eye contact good. Motor activity appropriate. Speech within normal limits. Affect congruent, mood content and anxious. Thoughts linear, logical, no signs of hallucinations or delusions. Client Response/Progress/Benefit: [] Pt responded well to session, participating in activity and small group discussion. Group reviewed the rest of the defense mechanisms and discussed how these are adaptive, maladaptive, or somewhere in the gonzales. Pt participated in the experiential activity which encouraged pts to draw a castle that portrayed their different defense mechanisms. Pt's defense mechanisms included self-discipline, anticipation, and displacement. Pt shared he is working on managing displacement by trying to take a break when recognizing it as well as gaining more awareness. Pt listened to finish machine tender teach different skills to help pt?s cope with or change their defense mechanisms. Pt appeared to benefit from gaining insight to the different defense mechanisms and learning coping skills. Pt will continue IOP tx to promote mood stability, maintain gains, and prevent decompensation. Narrative Note: [] Narrative Note: []
--- NOTE | 2023-12-14 09:00 | BH.SGPN.GN ---
Behaviors/Verbalizations/Mental Status: [] Eye contact is good. Motor activity is appropriate. Appearance is casual. Speech is Appropriate. Mood is euthymic. Affect is full. Thoughts are linear and logical. No evidence of psychosis. Reviewed daily check in sheet and no reports of suicidal ideations or intent. Client Response/Progress/Benefit: [] Pt participated when prompted. Attentive. Reports feeling content with his current work/life balance. I'm in a better sport. Reports that he was so stressed and anxious before that he doesn't want to go back to that. I'm happy where I'm at. The past few weeks he has been focused on acceptance and positive changes as these go against his long held beliefs and the need to always be working. Progress noted. Benefited from group support, encouragement, and feedback. Will continue in IOP to prevent decompensation and maintain gains. Narrative Note: []
--- NOTE | 2023-12-14 10:10 | BH.SGPN.GN ---
Behaviors/Verbalizations/Mental Status: []Pt alert and oriented, neatly dressed and groomed. Eye contact good. Motor activity appropriate. Speech within normal limits. Affect congruent, mood sad.. Thoughts linear, logical, no signs of hallucinations or delusions Client Response/Progress/Benefit: [] Pt was an active participate AEB listening attentively to others, participating in group discussions, and taking notes throughout. Participated as the group identified ways we can hurt others or sabotage self by not regulating our emotions. Participated with peers to identified ways emotions impact communication which pt shared he can act and communicate irrationally when he is upset. Participated during group activity. Pt benefited from session by gaining an increased understanding on the importance of managing emotions to improve daily functioning. Will continue IOP tx to promote gains and reinforce healthy coping skills. ? Narrative Note: []
--- NOTE | 2023-12-14 11:10 | BH.SGPN.GN ---
Behaviors/Verbalizations/Mental Status: []Pt alert and oriented, casually dressed and fairly groomed. Eye contact good. Motor activity appropriate. Speech within normal limits. Affect congruent, mood content. Thoughts linear, logical, no signs of hallucinations or delusions. Client Response/Progress/Benefit: [] Pt engaged in session AEB Pt listening attentively to peers and providing input. Attentive during psychoeducation on 4 zones of regulation. Pt able to identify feelings and behaviors for each zone. Pt identified coping skills one can use to support self in each zone. Identified being in the green zone today wants to stay in this zone, so pt wants to continue with the routines he has developed in IOP. Benefited from increased education on zones of regulation or stages of alertness for emotions and healthy coping skills to use for each zone. Will continue IOP tx to promote mood stability, increase use of healthy coping skills, and reinforce self-care practices. ??? Narrative Note: []
--- NOTE | 2023-12-15 09:05 | BH.SGPN.GN ---
Behaviors/Verbalizations/Mental Status: [] Eye contact is good. Motor activity is appropriate. Appearance is casual. Speech is Appropriate. Mood is euthymic. Affect is full. Thoughts are linear and logical. No evidence of psychosis. Reviewed daily check in sheet and no reports of suicidal ideations or intent. Client Response/Progress/Benefit: [] Pt participated at times during the group discussions. Attentive. Shared feeling happy and content. Engaged in hobbies and free time with family. Smiling when talking about activities he is participating in that aren't work related. Increased pleasure in non-productive activities. Reports feeling less overwhelmed, anxious, and burned out. Progress noted. Beneifted from group support, encouragement, and feedback. Will continue in IOP to maintain gains, decrease anxiety/stress, and improve functioning. Narrative Note: []
--- NOTE | 2023-12-15 10:15 | BH.SGPN.GN ---
Behaviors/Verbalizations/Mental Status: []Pt alert and oriented, neatly dressed and groomed. Eye contact good. Motor activity appropriate. Speech within normal limits. Affect congruent, mood euthymic. Thoughts linear, logical, no signs of hallucinations or delusions. Client Response/Progress/Benefit: [] Pt responded well to session AEB sharing and listening attentively to others. Group identified types of social support (family, pets, professionals, spiritual, etc) and provided examples of benefits of having social support, including: decreased stress, increased self-esteem, encouragement, distraction, etc. Pt also participated in group discussion regarding the barriers to accessing support which pt shared he has struggled with asking for and accepting help. Pt participated in experiential activity illustrating the impact communication, boundaries, and patience play in creating healthy support systems. Pt appeared to benefit from increased knowledge of the benefits of social support and greater self-awareness. Will continue IOP promote mood stability and reinforce healthy coping skills. ??? Narrative Note: []
--- NOTE | 2023-12-15 11:15 | BH.SGPN.GN ---
Behaviors/Verbalizations/Mental Status: []Pt alert and oriented, neatly dressed and groomed. Eye contact good. Motor activity appropriate. Speech within normal limits. Affect congruent, mood euthymic. Thoughts linear, logical, no signs of hallucinations or delusions. Client Response/Progress/Benefit: [] Pt was an active participant throughout AEB contributing to discussion, providing personal examples, and taking notes. Pt processed emotions felt in the activity and how they coped in the moment. Pt provided input during discussion on the types of support our supports can provide. Pt able to identify current support system and barriers that get in the way of using supports by drawing out their own support net. Pt reported after identifying what type of supports they receive; they gained awareness that they could benefit from getting more social support. Pt plans to do this by ?not turning down opportunities with friends and family.? Pt seemed to benefit from identifying the type of support Pt needs to work on improving. Pt recommended to continue IOP tx to promote mood stability and reinforce healthy coping skills. Narrative Note: []
--- NOTE | 2023-12-18 10:15 | BH.SGPN.GN ---
Behaviors/Verbalizations/Mental Status: []Pt alert and oriented, neatly dressed and groomed. Eye contact good. Motor activity appropriate. Speech within normal limits. Affect congruent, mood anxious. Thoughts linear, logical, no signs of hallucinations or delusions. Client Response/Progress/Benefit: [] Pt was attentive during psychoeducation and participated in group activity. Group discussed what contributes to a person?s perspective and how perspective can positively or negatively impact mental health treatment. Pt reflected on their perspective today and how it is impacting them. Pt shared their perspective today is ?hopeful and optimistic? as pt feels he is working through ?bad habits? and he is more realistic about future goals. Pt shared this perspective also makes him more motivated and happier. Pt appeared to benefit from increasing awareness of different perspectives and how they can affect mental health. Pt will discharge from IOP tx as pt has accomplished his tx goals and no longer meets criteria for IOP level of care. Narrative Note: []
--- NOTE | 2023-12-18 11:15 | BH.SGPN.GN ---
Behaviors/Verbalizations/Mental Status: []Pt alert and oriented, casually dressed and groomed. Eye contact fair to good. Motor activity appropriate. Speech within normal limits. Affect congruent, mood anxious and euthymic. Thoughts linear, logical, no signs of hallucinations or delusions. Client Response/Progress/Benefit: []Pt was attentive and contributed to group discussion. Pt worked with group to identify strategies that can help with challenging negative perspective. Pt completed strengths exploration worksheet, identifying independence, honesty, and fairness as personal strengths. Pt able to acknowledge how these strengths are helping pt and can continue to help pt in mental health journey. Pt identified wanting to work on leaning on strength of honesty to continue opening up with supports. Benefited from identifying personal strengths and strategies for enhancing use of identified strengths. Pt will continue in outpatient tx to maintain gains and prevent decompensation and d/c from IOP tx today. Narrative Note: []
== END 2023-12-18 12:13 | disposition home or self-care (01) ==
LOC: BHIOP 07:14
PROVIDERS: PCP Family Medicine; Referring Provider Psychiatry & Neurology Psychiatry; Visit Provider Psychiatry & Neurology Psychiatry
DX: F33.1 Major depressive disorder, recurrent, moderate (principal); F41.1 Generalized anxiety disorder; G43.019 Migraine without aura, intractable, without status migrainosus; Z79.899 Other long term (current) drug therapy
CPT/HCPCS: S9480; 90834; 90837; 90853

== ENCOUNTER → 2024-06-19 | Outpatient (CLI) | payer OTHER, SELFPAY ==
[2024-06-19 12:35] LABS: Vitamin D,25 Hydroxy 36.1 ng/mL
[2024-06-19 13:18] LABS: Anion Gap 8 (5-15); BUN 15 mg/dL (7-18); BUN/Creat Ratio 11.8 RATIO (10-20); Calcium,Total 9.6 mg/dL (8.5-10.1); Chloride 105 mmol/L (98-107); Cholesterol 252 mg/dL (200); Creatinine, Serum 1.27 mg/dL (0.70-1.30); EST Glomerular Filtration Rate 67 mL/min (>60); Est Glom Filt Rate - Afr Amer 81 mL/min (>60); Glucose 100 mg/dL (74-106); High Density Lipoprotein 48 mg/dL; Potassium 3.8 mmol/L (3.5-5.1); Sodium Level 136 mmol/L (136-145); Triglycerides 141 mg/dL; Very Low Density Lipoprotein 28 mg/dL (5-40)
== END | disposition home or self-care (01) ==
LOC: MFPLAB 09:56
PROVIDERS: PCP Family Medicine; Referring Provider Family Medicine; Visit Provider Family Medicine
DX: R79.89 Other specified abnormal findings of blood chemistry (principal); Z13.220 Encounter for screening for lipoid disorders; Z13.1 Encounter for screening for diabetes mellitus
CPT/HCPCS: 36415; 80048; 80061; 82306

== ENCOUNTER → 2024-10-24 | Outpatient (CLI) | payer OTHER, SELFPAY ==
--- NOTE | 2024-10-24 14:57 | RAD_ITS ---
PROCEDURE: CHEST PA AND LATERAL 10/24/2024 REASON FOR EXAM: CHEST PAIN STAT N TECHNIQUE: Frontal and lateral views of the chest. COMPARISON: None available FINDINGS: The lungs appear clear. Pulmonary vascularity appears within limits. No pneumothorax or pleural effusion. The cardiac and mediastinal contours appear within limits. The visualized osseous structures appear within limits. RAD/Chest PA and Lateral IMPRESSION: No evidence of acute disease. Reading Location: [id number]
[2024-10-24 17:42] LABS: Absolute Lymphocyte Count 2.06 X10^3/uL (0.83-4.51); Absolute Neutrophil Count 3.1 X10^3/uL (2.0-7.7); Basophil# 0.07 X10^3/uL; Basophil% 1.2 % (0-1); Eosinophil# 0.12 X10^3/uL; Eosinophils% 2.1 % (0-5); Hematocrit 43.5 % (40-54); Hemoglobin 14.6 g/dL (13.0-16.5); Lymphocyte # 2.06 X10^3/ul (0.83-4.51); Lymphocyte % 36.2 % (19-41); Mean Corp Hgb Conc 33.6 g/dL (32-36); Mean Corpuscular Hgb 28.2 pg (27.0-32.0); Mean Platelet Vol. 9.2 fl (6.2-12.0); Monocyte# 0.35 X10^3/uL; Monocyte% 6.2 % (0-10); NRBC Flagged by Analyzer 0 % (0-5); Neutrophil # 3.07 X10^3/uL (2.7-7.7); Neutrophil % 53.9 % (47-70); Platelet Count 358 K/mm3 (150-450); RBC Distribution Width CV 12.8 % (11.6-14.6); Red Blood Count 5.18 M/mm3 (4.6-6.2); White Blood Count 5.7 K/mm3 (4.4-11.0)
[2024-10-24 18:11] LABS: Anion Gap 12 (5-15); BUN 13 mg/dL (4-19); BUN/Creat Ratio 11.7 RATIO (10-20); Calcium,Total 9.2 mg/dL (7.6-11.0); Carbon Dioxide 20.6 mmol/L (21.0-32.0); Chloride 105 mmol/L (98-108); Creatinine, Serum 1.11 mg/dL (0.70-1.20); EST Glomerular Filtration Rate 87 (>60); Glucose 103 mg/dL (70-99); Magnesium 2.4 mg/dL (1.5-2.2); Potassium 4.4 mmol/L (3.3-5.1); Sodium Level 137 mmol/L (133-145); Troponin T High Sensitivity 6 ng/L (<=22)
== END | disposition home or self-care (01) ==
PROVIDERS: PCP Family Medicine; Referring Provider Family Medicine; Visit Provider Family Medicine
DX: R07.9 Chest pain, unspecified (principal)
CPT/HCPCS: 36415; 71046; 80048; 83735; 84443; 84484; 85025

== ENCOUNTER 2025-01-29 13:22 | Outpatient (CLI) | payer OTHER, SELFPAY ==
--- NOTE | 2025-01-29 13:30 | MRI_ITS ---
PROCEDURE: SPINE LUMBAR W/WO CONTRAST 01/29/2025 REASON FOR EXAM: PAIN,RIGHT RADICULOPATHY,HX OF FUSION TECHNIQUE: Procedure Code: [id number] Modality: MR Procedure: SPINE LUMBAR W/WO CONTRAST Multiplanar and multisequence images were obtained without and with intravenous gadolinium-based contrast administration. CONTRAST: Clariscan VOLUME: 20 mL COMPARISON: 05-13-2022 FINDINGS: Stable post operative changes with L4 spinolaminectomy, L4-L5 disc cage application and internal fixation by rods and screws inducing metallic susceptibility artifact. Straightened lumbar lordotic curve denoting myospasm. Minimal L3 retrolisthesis. The examined vertebrae bodies and posterior neural arches show no fracture or dislocation with preserve vertebral bodies height. Multilevel subchondral Schmorl's nodes of the examined vertebral end plates . No obvious marrow degenerative signal. Modio 0. Variable degrees of reduced height and bright T2 WI signal of the L1-L2 and L3- L4 intervertebral discs denoting their desiccation. T12-L1: There is no focal disc pathology, central canal stenosis or neural foraminal stenosis. L1-L2: There is no focal disc pathology, central canal stenosis or neural foraminal stenosis. L2-L3: There is no focal disc pathology, central canal stenosis or neural foraminal stenosis. L3-L4: a diffuse disc bulge with 1.5 mm central disc protrusion indenting the theca and encroaching upon both neural exit foramina inducing mild exiting nerve roots compression. L4-L5: operative level. No obvious spinal canal or neuroforaminal stenosis. L5-S1: There is no focal disc pathology, central canal stenosis or neural foraminal stenosis. The lower thoracic spinal cord, conus medullaris, and cauda equina nerve roots are unremarkable. No obvious enhancing masses. No obvious spondylodiscitis or arachnoiditis. No marrow infiltrative lesions. Paravertebral soft tissue is unremarkable. No developmental canal stenosis. MRI/Spine Lumbar W/WO Contrast IMPRESSION: Stable post operative changes a detailed. Straightened lumbar lordotic curve denoting myospasm. No vertebral fracture or dislocation. L3-L4: a diffuse disc bulge with 1.5 mm central disc protrusion inducing mild e xiting nerve roots compression. Reading [facility]
== END 2025-01-29 23:59 | disposition home or self-care (01) ==
PROVIDERS: PCP Family Medicine; Referring Provider Student in an Organized Health Care Education/Training Program; Visit Provider Student in an Organized Health Care Education/Training Program
DX: M51.369 Other intervertebral disc degeneration, lumbar region without mention of lumbar back pain or lower extremity pain (principal); M54.50 Low back pain, unspecified; M54.17 Radiculopathy, lumbosacral region; Z98.1 Arthrodesis status
CPT/HCPCS: 72158; A9575